=== PATIENT | female | born 1965 | race Caucasian/White ===

== ENCOUNTER 2019-01-17 16:29 | Emergency (ER) | payer MEDICAID ==
[~2019-01-17] VITALS: Ht 165.1 cm; Wt 66.0 kg
[~2019-01-17 16:29] MED LIST: LIDOcaine 1% w/EPI 1:100,000 30ml vial (MDV) ONE
[2019-01-17 16:34] VITALS: BP 145/88
--- NOTE | 2019-01-17 17:14 | NUR ---
PT DENIES LOC WITH INJURY, STATES NO NECK PAIN
[2019-01-17] MEDS ORDERED: TETanus/Pertussis (Acell)/Diphther VAC/PF (Tdap-Adult) 0.5ml syringe IM ONE (18:25)
== END 2019-01-17 19:43 | disposition home or self-care (01) ==
LOC: ER 16:30
DX: S01.81XA Laceration without foreign body of other part of head, initial encounter (principal); S69.92XA Unspecified injury of left wrist, hand and finger(s), initial encounter; Z88.0 Allergy status to penicillin; W10.8XXA Fall (on) (from) other stairs and steps, initial encounter; W23.0XXA Caught, crushed, jammed, or pinched between moving objects, initial encounter; Y93.89 Activity, other specified; Y92.89 Other specified places as the place of occurrence of the external cause; Y99.8 Other external cause status
CPT/HCPCS: 12013; 73140; 90471; 90715; 99284; J3490

== ENCOUNTER 2020-01-25 00:22 | Inpatient (IN) | payer OTHER, MEDICAID ==
[~2020-01-25] VITALS: Ht 162.6 cm; Wt 80.0 kg
[2020-01-25] VITALS (17 sets, daily range): BP systolic 104–170; BP diastolic 58–87
--- NOTE | 2020-01-25 00:57 | NUR ---
Pt is A+Ox4 but is very poor at answering basic questions. CO accompanying pt. does not know if she is developmentally disabled.
[2020-01-25 01:05] LABS: BASOPHILS % (AUTO) 0.3 % (0-1); EOSINOPHILS % (AUTO) 0.1 % (0-6); HEMATOCRIT 49.4 % (35.0-45.0); HEMOGLOBIN 16.7 g/dl (12.0-16.0); LYMPHOCYTES # (AUTO) 1.9 X10'3 (1.1-4.8); LYMPHOCYTES % (AUTO) 12.6 % (21-51); MEAN CORPUSCULAR HGB CONC 33.7 g/dL (33.0-36.5); MEAN PLATELET VOLUME 7.3 FL (7.4-10.4); MONOCYTES # (AUTO) 0.7 X10'3 (0-0.9); MONOCYTES % (AUTO) 5.1 % (2-12); NEUTROPHILS % (AUTO) 81.9 % (42-75); PLATELET COUNT 222 X10'3 (140-440); RED BLOOD COUNT 5.37 X10'6 (4.20-5.60); RED CELL DISTRIBUTION WIDTH 12.9 % (11.5-14.5); WHITE BLOOD COUNT 14.7 X10'3 (4.5-11.0)
[2020-01-25] MEDS ORDERED: ondansetron/PF 4mg/2ml inj IV STA (01:07)
[2020-01-25] MEDS ORDERED: morphine 4 MG/ML inj SYRINge IV STA (01:07)
[2020-01-25] MEDS ORDERED: normal saline 1000ml 1,000 ML IVB ONE (01:07)
--- NOTE | 2020-01-25 01:17 | NUR ---
I REMOVED HER PANTS TO GET A STRAIGHT CATH AND HER LEGS ARE LACY SO I INFORMED THE MD. HER ABD IS DIFFUSE TENDERNESS MORE LOWER QUADS AND RLQ AND SHE STATES SHE STILL HAS HER APPENDIX. REBOUND TENDERNESS +. DR PEREZ AT BS NOW.
[2020-01-25 01:18] LABS: ALANINE AMINOTRANSFERASE 74 U/L (12-78); ALBUMIN 3.3 G/DL (3.4-5.0); ALBUMIN/GLOBULIN RATIO 0.8 (1.1-1.5); ALKALINE PHOSPHATASE 96 IU/L (46-116); ANION GAP 13 (8-16); ASPARTATE AMINO TRANSFERASE 80 U/L (10-37); BILIRUBIN,TOTAL 1.7 MG/DL (0.1-1.0); BLOOD UREA NITROGEN 17 MG/DL (7-18); BUN/CREATININE RATIO 12.3 (6.6-38.0); CALCIUM 9.4 MG/DL (8.5-10.1); CHLORIDE 100 MMOL/L (99-107); CREATININE 1.38 MG/DL (0.40-0.90); GLUCOSE 139 MG/DL (70-104); LIPASE 97 U/L (73-393); POTASSIUM 3.6 MMOL/L (3.5-5.1); SODIUM 140 MMOL/L (135-145); TOTAL CARBON DIOXIDE 27.5 MMOL/L (24-32); TOTAL PROTEIN 7.4 G/DL (6.4-8.2); eGFR 40 ML/MIN
[2020-01-25] MEDS ORDERED: ondansetron/PF 4mg/2ml inj IV ONE (01:20)
[2020-01-25] MEDS ORDERED: morphine 4 MG/ML inj SYRINge IV PRN ×2 (01:20→06:50)
[2020-01-25] MEDS ORDERED: normal saline 1000ML IV soln IVB ONE ×2 (01:20)
[2020-01-25] MEDS ORDERED: ondansetron/PF 4mg/2ml inj IV PRN ×2 (01:20→06:50)
[2020-01-25 01:29] LABS: CLARITY,URINE SLIGHTLY CLOUDY (Clear); COLOR,URINE AMBER (Yellow); GLUCOSE, URINE NEGATIVE (Neg); KETONES,URINE TRACE mg/dl (Neg); LEUKOCYTE ESTERASE ,URINE NEGATIVE (Neg); NITRITES, URINE NEGATIVE (Neg); OCCULT BLOOD,URINE SMALL (Neg); PROTEIN,URINE TRACE mg/dl (Neg); UROBILINOGEN,URINE >=8.0 E.U/dL (0.2-1.0)
[2020-01-25] MEDS ORDERED: levoFLOXACIN-Levaquin 750MG/D5 150 ML IV ONE (01:50)
[2020-01-25] MEDS: morphine 4 MG/ML inj SYRINge IV PRN ×2 (01:59→10:53)
[2020-01-25 02:02] LABS: UA COLLECTION TYPE STRAIGHT CATH
[2020-01-25 02:05] LABS: BACTERIA,URINE NONE SEEN /HPF (Neg); MUCUS STRANDS MANY /LPF (Neg); SQUAMOUS EPITHELIAL CELL,UR MANY /LPF (FEW); WBC,URINE 0-4 /HPF (0-4)
[2020-01-25] MEDS ORDERED: NO HOME MEDS (02:13)
[2020-01-25] MEDS ORDERED: morphine 2 MG/ML inj. syringe IV PRN ×2 (03:30→06:50)
[2020-01-25 03:34] LABS: URINE HCG NEGATIVE (NEG)
--- NOTE | 2020-01-25 04:40 | NUR ---
Received report from Cat RN in the ER. Patient arrived at 0500 on gurney. Saline locked, room air a/o, vss, no signs of distress, will continue to monitor
[2020-01-25] MEDS: normal saline 1000ml 1,000 ML IV SCH ×3 (05:42→21:08)
[2020-01-25] MEDS ORDERED: famotidine 20mg tablet PO ONE (06:00)
--- NOTE | 2020-01-25 06:24 | NUR ---
Problems reprioritized. Patient report given, questions answered & plan of care reviewed with Di MUNSON.
--- NOTE | 2020-01-25 06:25 | NUR ---
Patient in room [facility] 350. I have received report from Vika MUNSON and had the opportunity to ask questions and assume patient care.
[2020-01-25] MEDS ORDERED: LIDOcaine 1% 30ml preserv. free vial ONE (06:46)
[2020-01-25] MEDS ORDERED: BUPIVAcaine/PF 2.5 mg/ml (0.25%) 30ml vial ONE (06:47)
[2020-01-25] MEDS ORDERED: hydrALAZINE 20mg/ml inj. IV PRN (06:50)
[2020-01-25] MEDS ORDERED: fentaNYL/PF 50MCG/1 ML 2ML syringe IV PRN ×2 (06:50)
[2020-01-25] MEDS ORDERED: ringers solution, lacted 1,000 ML IV SCH (06:50)
[2020-01-25] MEDS ORDERED: ringers solution, lacted 1,000 ML IV ONE (06:50)
[2020-01-25] MEDS ORDERED: labetalol 20mg/4ml (5mg/ml) syringe IV PRN (06:50)
[2020-01-25] MEDS: morphine 2 MG/ML inj. syringe IV PRN ×4 (07:23→22:57)
--- NOTE | 2020-01-25 07:28 | NUR ---
Patient just left her room to OR, hands off report given to the nurse. I have called the OR charge nurse at earlier time to give report as well. I told the OR nurse during report that I did preop EKG and that the EKG shows abnormal T wave and to let the anesthesiologist know about this. The initial trop is negative and patient denies chest pain upon initial assessment. Addendum: 01/25/20 at 0732 by Di Martinez RN Day shift guard duty accompanied patient to OR after the unarmed security guard duty gave hands off report
[2020-01-25 07:56] LABS: PARTIAL THROMBOPLASTIN TIME 28 SECONDS (22-32)
[2020-01-25] MEDS ORDERED: midazolam 2 mg/2 ml injection ONE (07:58)
[2020-01-25] MEDS ORDERED: fentaNYL/PF 50MCG/1 ML 2ML syringe ONE (07:58)
[2020-01-25] MEDS ORDERED: ondansetron/PF 4mg/2ml inj ONE (07:59)
[2020-01-25] MEDS ORDERED: propofol inj 20 ML IV ONE (07:59)
[2020-01-25] MEDS ORDERED: rocuronium 10mg/ml inj IV ONE (07:59)
[2020-01-25] MEDS ORDERED: LIDOcaine 2% (20mg/ml) 5ml vial ONE (07:59)
--- NOTE | 2020-01-25 08:59 | NUR ---
Report given to PHOTOGRAPHIC PLATEMAKER Gary over the phone
[2020-01-25] MEDS ORDERED: neostigmine methylsulfate 1 MG/ML 10ml vial ONE (09:19)
[2020-01-25] MEDS ORDERED: sevoflurane 250ml liquid IH ONE (09:19)
[2020-01-25] MEDS ORDERED: phenylephrine 10mg/ml inj. ONE (09:19)
[2020-01-25] MEDS ORDERED: dexamethasone sod phosphate 4mg/ml inj. ONE (09:26)
[2020-01-25] MEDS ORDERED: ceFOXitin 1000 MG inj ONE ×2 (09:33→09:34)
[2020-01-25] MEDS ORDERED: albumin (Human) 5% 250ml 250 ML IV ONE (09:50)
[2020-01-25] MEDS ORDERED: glycopyrrolate 0.2mg/ml inj ONE (10:16)
--- NOTE | 2020-01-25 10:34 | NUR ---
Received from OR via , accompanied by Anesthesiologist DR VIEYRA and report given by Anesthesiolgist. AWAKENS TO VOICE. VITALS STABLE. DRESSINGS DI. LAURA PAIN. 100CC EMPTIED FROM ABD JOCELYNN.
--- NOTE | 2020-01-25 11:14 | NUR ---
Report called to receiving nurse. Transferred via BED Belongings . Special Issues communicated to receiving nurse. AWAKE AND ORIENTED. VITALS STABLE. DRESSINGS DI. LAURA PAIN. TO SURGICAL RM 350B AT THIS TIME.
--- NOTE | 2020-01-25 11:30 | NUR ---
Patient just arrived back to her room with the guard. Per CASTING MACHINE OPERATORJEIMY Cummins patient had JOCELYNN output of 160 from the Recovery Room and that Dr. Washington was aware of it. Patient arrived, alert, oriented. Patient has 3 lap sites clean dry and intact. 1 JOCELYNN on the left side noted, drainage was sanguinous measured about 100 ml.
--- NOTE | 2020-01-25 16:13 | NUR ---
Patient has not peed yet since this am, bladder scan done, residual urine output was 418ml. Encouraged patient to ambulate to see if she can pee. Patient was assisted during ambulation with the presence of guard on duty. Patient tolerated ambulation, no dizziness noted, gait steady. Assisted patient to the bathroom, she is sitting on the toilet to try to urinate
--- NOTE | 2020-01-25 16:33 | NUR ---
Dr. Washington notified about urine retention for several hours, bladder scan of 418ml, voided only 30 ml of urine after ambulating. Received order to do straight cath x 1 and if needed again and residual is >250ml then may put a burger catheter
--- NOTE | 2020-01-25 16:57 | NUR ---
Straight catheter inserted using sterile technique with the presence of a guard on duty. Patient tolerated the procedure well. 600 ml of dark rome urine drained
--- NOTE | 2020-01-25 18:25 | NUR ---
Problems reprioritized. Patient report given, questions answered & plan of care reviewed with Reny Cornelius RN.
--- NOTE | 2020-01-25 18:33 | NUR ---
Patient in room [facility] 350. I have received report from JEIMY Saenz and had the opportunity to ask questions and assume patient care.
[2020-01-25] MEDS: levoFLOXACIN-Levaquin 500mg/D5 100 ML IV SCH (21:09)
[2020-01-25] MEDS: lactobacillus rhamnosus 10,000 MMU CELLS/CAPSULE PO SCH (21:09)
[2020-01-25] MEDS: ondansetron/PF 4mg/2ml inj IV PRN (23:19)
--- NOTE | 2020-01-25 23:25 | NUR ---
Pt voided 100, PVR bladder scan 350. FC inserted. Pt tolerated well. 600mL immediate drainage.
[2020-01-26 04:00] VITALS: BP 121/71
[2020-01-26 05:08] LABS: BASOPHILS % (AUTO) 0.1 % (0-1); EOSINOPHILS % (AUTO) 0 % (0-6); HEMATOCRIT 38.2 % (35.0-45.0); HEMOGLOBIN 12.8 g/dl (12.0-16.0); LYMPHOCYTES # (AUTO) 0.7 X10'3 (1.1-4.8); MEAN CORPUSCULAR HGB CONC 33.4 g/dL (33.0-36.5); MEAN CORPUSCULAR VOLUME 92.9 FL (78-98); MEAN PLATELET VOLUME 7.4 FL (7.4-10.4); MONOCYTES # (AUTO) 0.6 X10'3 (0-0.9); MONOCYTES % (AUTO) 8.4 % (2-12); NEUTROPHILS # (AUTO) 6.1 X10'3 (1.8-7.7); NEUTROPHILS % (AUTO) 81.5 % (42-75); PLATELET COUNT 119 X10'3 (140-440); RED BLOOD COUNT 4.11 X10'6 (4.20-5.60); RED CELL DISTRIBUTION WIDTH 13.1 % (11.5-14.5); WHITE BLOOD COUNT 7.5 X10'3 (4.5-11.0)
--- NOTE | 2020-01-26 05:12 | NUR ---
Patient reports passing gas. Ambulated 1x around surgical.
[2020-01-26 05:24] LABS: ALANINE AMINOTRANSFERASE 63 U/L (12-78); ALBUMIN 2.3 G/DL (3.4-5.0); ALBUMIN/GLOBULIN RATIO 0.7 (1.1-1.5); ALKALINE PHOSPHATASE 57 IU/L (46-116); ANION GAP 3 (8-16); ASPARTATE AMINO TRANSFERASE 70 U/L (10-37); BLOOD UREA NITROGEN 15 MG/DL (7-18); BUN/CREATININE RATIO 17.6 (6.6-38.0); CALCIUM 8.3 MG/DL (8.5-10.1); CHLORIDE 109 MMOL/L (99-107); CREATININE 0.85 MG/DL (0.40-0.90); GLUCOSE 92 MG/DL (70-104); POTASSIUM 4.5 MMOL/L (3.5-5.1); SODIUM 141 MMOL/L (135-145); TOTAL CARBON DIOXIDE 29.2 MMOL/L (24-32); TOTAL PROTEIN 5.6 G/DL (6.4-8.2); eGFR 70 ML/MIN
--- NOTE | 2020-01-26 06:21 | NUR ---
Problems reprioritized. Patient report given, questions answered & plan of care reviewed with JEIMY Hewitt.
--- NOTE | 2020-01-26 06:30 | NUR ---
Patient in room [facility] 350. I have received report from Reny Cuadra RN and had the opportunity to ask questions and assume patient care.
[2020-01-26 07:24] VITALS: BP 118/67
[2020-01-26] MEDS: normal saline 1000ml 1,000 ML IV SCH ×2 (09:24→19:29)
[2020-01-26] MEDS: levoFLOXACIN-Levaquin 500mg/D5 100 ML IV SCH (09:25)
[2020-01-26] MEDS: lactobacillus rhamnosus 10,000 MMU CELLS/CAPSULE PO SCH ×2 (09:25→20:59)
[2020-01-26] MEDS: morphine 2 MG/ML inj. syringe IV PRN ×3 (09:27→22:43)
[2020-01-26 11:00] VITALS: BP 129/80
[2020-01-26] MEDS: ondansetron/PF 4mg/2ml inj IV PRN (18:51)
--- NOTE | 2020-01-26 18:52 | NUR ---
Problems reprioritized. Patient report given, questions answered & plan of care reviewed with Javi MUNSON.
[2020-01-26] MEDS ORDERED: CADD PCA waste documentation MC SCH (19:55)
[2020-01-26 20:00] VITALS: BP 144/84
[2020-01-26] MEDS ORDERED: HYDROmorphone/NS 1 mg/ml CADD 50 ML IV SCH (20:30)
[2020-01-26 23:38] VITALS: BP 158/81
[2020-01-27 05:11] LABS: BASOPHILS % (AUTO) 0.4 % (0-1); EOSINOPHILS % (AUTO) 0.8 % (0-6); HEMATOCRIT 39.3 % (35.0-45.0); HEMOGLOBIN 13.1 g/dl (12.0-16.0); LYMPHOCYTES # (AUTO) 0.8 X10'3 (1.1-4.8); LYMPHOCYTES % (AUTO) 15.8 % (21-51); MEAN CORPUSCULAR HEMOGLOBIN 31.2 PG (27.0-31.0); MEAN CORPUSCULAR HGB CONC 33.3 g/dL (33.0-36.5); MEAN CORPUSCULAR VOLUME 93.9 FL (78-98); MEAN PLATELET VOLUME 7.2 FL (7.4-10.4); MONOCYTES # (AUTO) 0.5 X10'3 (0-0.9); MONOCYTES % (AUTO) 9.7 % (2-12); NEUTROPHILS # (AUTO) 3.9 X10'3 (1.8-7.7); NEUTROPHILS % (AUTO) 73.3 % (42-75); PLATELET COUNT 133 X10'3 (140-440); RED BLOOD COUNT 4.18 X10'6 (4.20-5.60); RED CELL DISTRIBUTION WIDTH 13.1 % (11.5-14.5); WHITE BLOOD COUNT 5.3 X10'3 (4.5-11.0)
[2020-01-27 05:29] LABS: ALANINE AMINOTRANSFERASE 49 U/L (12-78); ALBUMIN 2.3 G/DL (3.4-5.0); ALBUMIN/GLOBULIN RATIO 0.7 (1.1-1.5); ALKALINE PHOSPHATASE 59 IU/L (46-116); ANION GAP 3 (8-16); ASPARTATE AMINO TRANSFERASE 33 U/L (10-37); BILIRUBIN,TOTAL 0.7 MG/DL (0.1-1.0); BLOOD UREA NITROGEN 14 MG/DL (7-18); BUN/CREATININE RATIO 17.3 (6.6-38.0); CALCIUM 8.6 MG/DL (8.5-10.1); CHLORIDE 109 MMOL/L (99-107); CREATININE 0.81 MG/DL (0.40-0.90); GLUCOSE 89 MG/DL (70-104); POTASSIUM 4.4 MMOL/L (3.5-5.1); SODIUM 142 MMOL/L (135-145); TOTAL PROTEIN 5.6 G/DL (6.4-8.2); eGFR 74 ML/MIN
[2020-01-27] MEDS: normal saline 1000ml 1,000 ML IV SCH (05:29)
[2020-01-27] MEDS: ondansetron/PF 4mg/2ml inj IV PRN (05:50)
[2020-01-27] MEDS: morphine 2 MG/ML inj. syringe IV PRN (05:50)
--- NOTE | 2020-01-27 06:42 | NUR ---
Patient in room [facility] 350. I have received report from Javi MUNSON and had the opportunity to ask questions and assume patient care.
[2020-01-27 07:00] VITALS: BP 137/86
[2020-01-27] MEDS: lactobacillus rhamnosus 10,000 MMU CELLS/CAPSULE PO SCH ×2 (07:27→19:38)
[2020-01-27] MEDS: levoFLOXACIN-Levaquin 500mg/D5 100 ML IV SCH (07:27)
[2020-01-27 08:10] VITALS: BP 137/86
[2020-01-27] MEDS: HYDROcodone/acetaminophen 5mg/325mg tablet PO PRN ×3 (09:42→21:31)
[2020-01-27 11:21] VITALS: BP 131/84
[2020-01-27] MEDS ORDERED: HYDROcodone/acetaminophen 5mg/325mg tablet PO PRN (11:40)
[2020-01-27 18:00] VITALS: BP 148/73
--- NOTE | 2020-01-27 18:21 | NUR ---
Problems reprioritized. Patient report given, questions answered & plan of care reviewed with Javi MUNSON.
[2020-01-28] VITALS: BP 142/97
[2020-01-28] MEDS: HYDROcodone/acetaminophen 5mg/325mg tablet PO PRN (03:43)
[2020-01-28 05:29] LABS: BASOPHILS % (AUTO) 0.6 % (0-1); EOSINOPHILS # (AUTO) 0.1 X10'3 (0-0.9); EOSINOPHILS % (AUTO) 2.5 % (0-6); HEMATOCRIT 36.9 % (35.0-45.0); HEMOGLOBIN 12.3 g/dl (12.0-16.0); LYMPHOCYTES # (AUTO) 0.9 X10'3 (1.1-4.8); LYMPHOCYTES % (AUTO) 25.2 % (21-51); MEAN CORPUSCULAR HEMOGLOBIN 30.7 PG (27.0-31.0); MEAN CORPUSCULAR HGB CONC 33.4 g/dL (33.0-36.5); MEAN CORPUSCULAR VOLUME 91.9 FL (78-98); MEAN PLATELET VOLUME 7.1 FL (7.4-10.4); MONOCYTES # (AUTO) 0.4 X10'3 (0-0.9); MONOCYTES % (AUTO) 9.6 % (2-12); NEUTROPHILS # (AUTO) 2.3 X10'3 (1.8-7.7); NEUTROPHILS % (AUTO) 62.1 % (42-75); PLATELET COUNT 135 X10'3 (140-440); RED BLOOD COUNT 4.01 X10'6 (4.20-5.60); RED CELL DISTRIBUTION WIDTH 13.1 % (11.5-14.5); WHITE BLOOD COUNT 3.7 X10'3 (4.5-11.0)
[2020-01-28 05:50] LABS: ALANINE AMINOTRANSFERASE 40 U/L (12-78); ALBUMIN 2.1 G/DL (3.4-5.0); ALBUMIN/GLOBULIN RATIO 0.7 (1.1-1.5); ALKALINE PHOSPHATASE 56 IU/L (46-116); ANION GAP 5 (8-16); ASPARTATE AMINO TRANSFERASE 30 U/L (10-37); BILIRUBIN,TOTAL 0.6 MG/DL (0.1-1.0); BLOOD UREA NITROGEN 8 MG/DL (7-18); CALCIUM 8.2 MG/DL (8.5-10.1); CHLORIDE 109 MMOL/L (99-107); GLUCOSE 98 MG/DL (70-104); POTASSIUM 3.8 MMOL/L (3.5-5.1); SODIUM 143 MMOL/L (135-145); TOTAL CARBON DIOXIDE 29.3 MMOL/L (24-32); TOTAL PROTEIN 5.2 G/DL (6.4-8.2); eGFR 75 ML/MIN
--- NOTE | 2020-01-28 06:00 | NUR ---
Patient in room [facility] 350. I have received report from JEIMY Caldwell and had the opportunity to ask questions and assume patient care.
[2020-01-28] MEDS: HYDROcodone/acetaminophen 10/325mg tab PO PRN ×3 (08:39→19:45)
[2020-01-28] MEDS: levoFLOXACIN-Levaquin 500mg/D5 100 ML IV SCH (08:39)
[2020-01-28] MEDS: lactobacillus rhamnosus 10,000 MMU CELLS/CAPSULE PO SCH ×2 (08:39→19:46)
[2020-01-28 08:49] VITALS: BP 118/76
[2020-01-28] MEDS ORDERED: pantoprazole 40 MG vial IV ONE (09:05)
[2020-01-28] MEDS ORDERED: nitroGLYCERIN 0.4mg SUBLingual tab SL PRN (09:05)
--- NOTE | 2020-01-28 09:30 | NUR ---
Patient was reporting sharp chest pain, rapid conducted, stat ecg conducted. Read by MD Hobbs, looked normal. Patient was ordered nitroglycerin and pain subsided after one dose. MD ordered a series troponin and an echocardiogram.
--- NOTE | 2020-01-28 11:00 | NUR ---
Patient had positive troponins, MD was notified, MD is consulting with a emg technician.
[2020-01-28 11:08] VITALS: BP 129/85
--- NOTE | 2020-01-28 18:00 | NUR ---
Problems reprioritized. Patient report given, questions answered & plan of care reviewed with Mone RN.
[2020-01-28 20:00] VITALS: BP 162/103
[2020-01-28 21:00] VITALS: BP 150/86
[2020-01-29 00:15] VITALS: BP 154/90
[2020-01-29] MEDS: HYDROcodone/acetaminophen 10/325mg tab PO PRN ×2 (01:06→06:59)
[2020-01-29 05:35] LABS: BASOPHILS % (AUTO) 0.5 % (0-1); EOSINOPHILS # (AUTO) 0.1 X10'3 (0-0.9); EOSINOPHILS % (AUTO) 2.4 % (0-6); HEMATOCRIT 36.8 % (35.0-45.0); HEMOGLOBIN 12.4 g/dl (12.0-16.0); LYMPHOCYTES # (AUTO) 1.1 X10'3 (1.1-4.8); LYMPHOCYTES % (AUTO) 26.2 % (21-51); MEAN CORPUSCULAR HEMOGLOBIN 30.6 PG (27.0-31.0); MEAN CORPUSCULAR HGB CONC 33.7 g/dL (33.0-36.5); MEAN CORPUSCULAR VOLUME 90.6 FL (78-98); MEAN PLATELET VOLUME 6.9 FL (7.4-10.4); MONOCYTES # (AUTO) 0.5 X10'3 (0-0.9); MONOCYTES % (AUTO) 11.6 % (2-12); NEUTROPHILS # (AUTO) 2.4 X10'3 (1.8-7.7); NEUTROPHILS % (AUTO) 59.3 % (42-75); PLATELET COUNT 146 X10'3 (140-440); RED BLOOD COUNT 4.06 X10'6 (4.20-5.60); RED CELL DISTRIBUTION WIDTH 12.9 % (11.5-14.5)
[2020-01-29 06:04] LABS: ALANINE AMINOTRANSFERASE 34 U/L (12-78); ALBUMIN 2.1 G/DL (3.4-5.0); ALBUMIN/GLOBULIN RATIO 0.7 (1.1-1.5); ALKALINE PHOSPHATASE 58 IU/L (46-116); ANION GAP 3 (8-16); ASPARTATE AMINO TRANSFERASE 30 U/L (10-37); BILIRUBIN,TOTAL 0.5 MG/DL (0.1-1.0); BLOOD UREA NITROGEN 6 MG/DL (7-18); BUN/CREATININE RATIO 7.6 (6.6-38.0); CALCIUM 8.4 MG/DL (8.5-10.1); CHLORIDE 106 MMOL/L (99-107); CREATININE 0.79 MG/DL (0.40-0.90); GLUCOSE 97 MG/DL (70-104); POTASSIUM 3.8 MMOL/L (3.5-5.1); SODIUM 143 MMOL/L (135-145); TOTAL CARBON DIOXIDE 33.8 MMOL/L (24-32); TOTAL PROTEIN 5.3 G/DL (6.4-8.2); eGFR 76 ML/MIN
--- NOTE | 2020-01-29 06:30 | NUR ---
Patient in room [facility] 350. I have received report from JEIMY Shore and had the opportunity to ask questions and assume patient care.
[2020-01-29 07:00] VITALS: BP 168/104
[2020-01-29] MEDS: lactobacillus rhamnosus 10,000 MMU CELLS/CAPSULE PO SCH (08:06)
[2020-01-29] MEDS: levoFLOXACIN-Levaquin 500mg/D5 100 ML IV SCH (08:06)
[2020-01-29] MEDS ORDERED: lisinopril 10 MG tablet PO STA (08:39)
--- NOTE | 2020-01-29 10:47 | NUR ---
Initial: Pt admit with appendicitis with a possible cecal mass and leukocytosis. Pt now s/p lap appendectomy and was noted to have severe appendicitis with phlegmon and peritonitis per MD note. Patient's diet has been advanced to regular from liquids, averaging 75-100% PO intake meeting nutrient needs. Mechanical soft diet added to diet order today. [facility] 01/22. D/w dietary to send prune juice with lunch to assist with bowel regularity. Will continue to follow and monitor need for further nutrition intervention. Recommendations: 1) Continue regular mechanical soft diet 2) Monitor need for additional protein 3) Routine bowel care 4) Scaled wt per rx Addendum: 01/29/20 at [address] Amended: Links added.
[2020-01-29 11:00] VITALS: BP 155/82
[2020-01-29] MEDS ORDERED: traMADol 50MG tablet PO PRN (11:20)
[2020-01-29] MEDS ORDERED: morphine 2 MG/ML inj. syringe IV PRN ×2 (12:30)
[2020-01-29] MEDS ORDERED: LEVO500T89 PO (13:46)
[2020-01-29] MEDS ORDERED: OMEP20CA15 PO (13:46)
[2020-01-29] MEDS ORDERED: ACET-1008 PO (13:46)
[2020-01-29] MEDS ORDERED: IBUP-1985 PO (15:02)
[2020-01-30] MEDS ORDERED: levoFLOXACIN 500mg tablet PO SCH (08:00)
== END 2020-01-29 16:40 | DRG 342 ==
LOC: EEVIPCON 00:23 → ER 00:23 → ED HOLD 03:29 → SUR 3N 04:52
PROVIDERS: ADMIT Internal Medicine; ATTEND Internal Medicine
PROC: 0DTJ4ZZ Resection of Appendix, Percutaneous Endoscopic Approach (ICD-10-PCS; principal; 2020-01-25 09:19)
DX: K35.20 Acute appendicitis with generalized peritonitis, without abscess (principal); I24.8 Other forms of acute ischemic heart disease; F17.200 Nicotine dependence, unspecified, uncomplicated; I44.7 Left bundle-branch block, unspecified; K63.9 Disease of intestine, unspecified; Z88.0 Allergy status to penicillin
CPT/HCPCS: 93306; 96361; 96365; 96375; 99285; Z7506; Z7508; 36415; 71045; 74176; 80053; 81001; 81025; 82948; 83690; 84145; 84484; 85025; 85610; 85730; 87081; 93005; A4215; A4618; A6402; A7000; C9113; G0378; J0694; J1100; J1170; J1956; J2001; J2250; J2270; J2370; J2405; J2704; J2710; J3010; J3490; J7030; J7120; P9045

== ENCOUNTER 2020-02-01 04:31 | Inpatient (IN) | payer OTHER, MEDICAID ==
[~2020-02-01] VITALS: Ht 170.2 cm; Wt 63.6 kg
[~2020-02-01 04:31] MED LIST changes: +ACET-1008 PO; +IBUP-1985 PO; +LEVO500T89 PO; -LIDOcaine 1% w/EPI 1:100,000 30ml vial (MDV) ONE; +OMEP20CA15 PO
[2020-02-01] MEDS ORDERED: ondansetron/PF 4mg/2ml inj IV ONE (04:40)
[2020-02-01] MEDS ORDERED: normal saline 1000ML IV soln IVB ONE (04:40)
[2020-02-01] MEDS: morphine 4 MG/ML inj SYRINge IV PRN ×2 (04:47→05:50)
[2020-02-01 04:50] LABS: BASOPHILS % (AUTO) 0.7 % (0-1); EOSINOPHILS # (AUTO) 0.2 X10'3 (0-0.9); EOSINOPHILS % (AUTO) 3.2 % (0-6); HEMATOCRIT 41.1 % (35.0-45.0); LYMPHOCYTES # (AUTO) 1.4 X10'3 (1.1-4.8); LYMPHOCYTES % (AUTO) 25.4 % (21-51); MEAN CORPUSCULAR HEMOGLOBIN 30.8 PG (27.0-31.0); MEAN CORPUSCULAR VOLUME 90.5 FL (78-98); MEAN PLATELET VOLUME 7.2 FL (7.4-10.4); MONOCYTES # (AUTO) 0.5 X10'3 (0-0.9); MONOCYTES % (AUTO) 8.7 % (2-12); NEUTROPHILS # (AUTO) 3.5 X10'3 (1.8-7.7); PLATELET COUNT 195 X10'3 (140-440); RED BLOOD COUNT 4.54 X10'6 (4.20-5.60); RED CELL DISTRIBUTION WIDTH 13.2 % (11.5-14.5); WHITE BLOOD COUNT 5.6 X10'3 (4.5-11.0)
[2020-02-01] MEDS ORDERED: iohexol 300mg/ml 100ml inj. ONE (05:10)
[2020-02-01 05:32] LABS: CLARITY,URINE CLEAR (Clear); COLOR,URINE YELLOW (Yellow); GLUCOSE, URINE NEGATIVE (Neg); KETONES,URINE NEGATIVE (Neg); LEUKOCYTE ESTERASE ,URINE NEGATIVE (Neg); NITRITES, URINE NEGATIVE (Neg); OCCULT BLOOD,URINE TRACE-INTACT (Neg); PH,URINE 7.5 (4.8-8.0); PROTEIN,URINE NEGATIVE (Neg); URINE HCG NEGATIVE (NEG); UROBILINOGEN,URINE 0.2 E.U/dL (0.2-1.0)
[2020-02-01 05:35] LABS: ALANINE AMINOTRANSFERASE 31 U/L (12-78); ALBUMIN 2.8 G/DL (3.4-5.0); ALBUMIN/GLOBULIN RATIO 0.7 (1.1-1.5); ALKALINE PHOSPHATASE 75 IU/L (46-116); ANION GAP 9 (8-16); ASPARTATE AMINO TRANSFERASE 32 U/L (10-37); BILIRUBIN,TOTAL 0.4 MG/DL (0.1-1.0); BLOOD UREA NITROGEN 13 MG/DL (7-18); BUN/CREATININE RATIO 16.9 (6.6-38.0); CALCIUM 9.2 MG/DL (8.5-10.1); CHLORIDE 107 MMOL/L (99-107); CREATININE 0.77 MG/DL (0.40-0.90); GLUCOSE 103 MG/DL (70-104); LIPASE 250 U/L (73-393); POTASSIUM 3.9 MMOL/L (3.5-5.1); SODIUM 145 MMOL/L (135-145); TOTAL CARBON DIOXIDE 29.1 MMOL/L (24-32); TOTAL PROTEIN 6.6 G/DL (6.4-8.2); eGFR 78 ML/MIN
[2020-02-01 05:36] LABS: UA COLLECTION TYPE CLN CATCH MIDSTREAM
[2020-02-01 05:37] LABS: BACTERIA,URINE FEW /HPF (Neg); RBC,URINE 0-2 /HPF (0-2); SQUAMOUS EPITHELIAL CELL,UR FEW /LPF (FEW); WBC,URINE 0-4 /HPF (0-4)
[2020-02-01] MEDS ORDERED: IBUP-1985 PO (05:46)
[2020-02-01] MEDS ORDERED: OMEP-50 PO (05:47)
[2020-02-01] MEDS ORDERED: LEVO500T2 PO (05:47)
[2020-02-01] MEDS ORDERED: mag hydrox/Alum hydrox/simeth 30ml oral suspension PO PRN (06:05)
[2020-02-01] MEDS ORDERED: potassium Cl 20 mEq SR tablet PO PRN ×2 (06:05)
[2020-02-01] MEDS ORDERED: potassium CL 10mEq/100ml bag 100 ML IV PRN ×2 (06:05)
[2020-02-01] MEDS ORDERED: ondansetron/PF 4mg/2ml inj IV PRN (06:05)
[2020-02-01] MEDS ORDERED: acetaminophen 325mg tablet PO PRN (06:05)
[2020-02-01] MEDS ORDERED: magnesium hydroxide 30ml (MOM) UD suspension PO PRN (06:05)
[2020-02-01] MEDS ORDERED: morphine 2 MG/ML inj. syringe IV PRN ×2 (06:05)
[2020-02-01] MEDS: normal saline 1000ml 1,000 ML IV SCH ×2 (06:10→17:25)
[2020-02-01] MEDS: cefoxitin sod inj 2,000 MG in dextrose 5%-water 50ml 50 ML IV SCH ×3 (07:21→23:50)
[2020-02-01] MEDS: pantoprazole 40mg Tablet.DR PO SCH (07:23)
[2020-02-01] MEDS: heparin, porcine 5000 units/ml vial SQ SCH ×2 (07:23→21:28)
--- NOTE | 2020-02-01 07:30 | NUR ---
SO ofc change from #418 to #463. Pt resting quietly in position of moderate comfort.
[2020-02-01] MEDS ORDERED: ceFOXitin 1 GM/D5W 50mL IVPB 50 ML IV SCH (08:00)
[2020-02-01] MEDS: K and/or MAG REPLACEMENT MC SCH ×2 (08:00→20:00)
[2020-02-01 14:15] VITALS: BP 106/75
--- NOTE | 2020-02-01 14:34 | NUR ---
PAGER ID: [phone] MESSAGE: Lori Lopeznette states current pain medication (4mg MS q 20min) not effective for abd. pain. We can not give this med. at this frequency on surgical floor. May we have an order for a CADD pump? Alethea [phone]
[2020-02-01] MEDS: HYDROmorphone/NS 1 mg/ml CADD 50 ML IV SCH ×6 (15:00→23:00)
[2020-02-01 19:37] VITALS: BP 127/72
[2020-02-02 00:06] VITALS: BP 151/97
[2020-02-02] MEDS: HYDROmorphone/NS 1 mg/ml CADD 50 ML IV SCH ×5 (01:00→08:45)
[2020-02-02] MEDS: normal saline 1000ml 1,000 ML IV SCH (02:02)
[2020-02-02 05:19] LABS: BASOPHILS % (AUTO) 0.6 % (0-1); EOSINOPHILS # (AUTO) 0.2 X10'3 (0-0.9); EOSINOPHILS % (AUTO) 3.3 % (0-6); HEMATOCRIT 38.4 % (35.0-45.0); HEMOGLOBIN 12.6 g/dl (12.0-16.0); LYMPHOCYTES % (AUTO) 22.5 % (21-51); MEAN CORPUSCULAR HEMOGLOBIN 30.2 PG (27.0-31.0); MEAN CORPUSCULAR HGB CONC 32.9 g/dL (33.0-36.5); MEAN CORPUSCULAR VOLUME 91.9 FL (78-98); MEAN PLATELET VOLUME 7.1 FL (7.4-10.4); MONOCYTES # (AUTO) 0.5 X10'3 (0-0.9); MONOCYTES % (AUTO) 10.6 % (2-12); NEUTROPHILS # (AUTO) 2.8 X10'3 (1.8-7.7); PLATELET COUNT 174 X10'3 (140-440); RED BLOOD COUNT 4.18 X10'6 (4.20-5.60); RED CELL DISTRIBUTION WIDTH 13.3 % (11.5-14.5); WHITE BLOOD COUNT 4.5 X10'3 (4.5-11.0)
[2020-02-02 05:42] LABS: ALANINE AMINOTRANSFERASE 30 U/L (12-78); ALBUMIN 2.5 G/DL (3.4-5.0); ALBUMIN/GLOBULIN RATIO 0.8 (1.1-1.5); ALKALINE PHOSPHATASE 62 IU/L (46-116); ANION GAP 3 (8-16); ASPARTATE AMINO TRANSFERASE 36 U/L (10-37); BILIRUBIN,TOTAL 0.5 MG/DL (0.1-1.0); BLOOD UREA NITROGEN 10 MG/DL (7-18); BUN/CREATININE RATIO 11.4 (6.6-38.0); CALCIUM 8.5 MG/DL (8.5-10.1); CHLORIDE 108 MMOL/L (99-107); CREATININE 0.88 MG/DL (0.40-0.90); GLUCOSE 81 MG/DL (70-104); POTASSIUM 4.2 MMOL/L (3.5-5.1); SODIUM 144 MMOL/L (135-145); TOTAL CARBON DIOXIDE 32.8 MMOL/L (24-32); TOTAL PROTEIN 5.8 G/DL (6.4-8.2); eGFR 67 ML/MIN
--- NOTE | 2020-02-02 06:30 | NUR ---
Patient in room [facility] 344. I have received report from Javi MUNSON and had the opportunity to ask questions and assume patient care.
[2020-02-02 07:19] VITALS: BP 156/78
[2020-02-02] MEDS: pantoprazole 40mg Tablet.DR PO SCH (07:30)
[2020-02-02] MEDS ORDERED: lactobacillus rhamnosus 10,000 MMU CELLS/CAPSULE PO SCH (08:00)
[2020-02-02] MEDS: heparin, porcine 5000 units/ml vial SQ SCH (08:00)
--- NOTE | 2020-02-02 08:15 | NUR ---
Called pharmacy concerning 0800 antibiotic
[2020-02-02] MEDS: K and/or MAG REPLACEMENT MC SCH (08:20)
[2020-02-02] MEDS: cefoxitin sod inj 2,000 MG in dextrose 5%-water 50ml 50 ML IV SCH (08:43)
--- NOTE | 2020-02-02 08:49 | NUR ---
Dr Andre called and asked for me to place order for Angio/IR to evaluate patient for possible drain placement for possible abcess. Spoke to Jaspreet in IR
[2020-02-02] MEDS ORDERED: acetaminophen 325mg tablet PO PRN (09:10)
[2020-02-02] MEDS ORDERED: CADD PCA waste documentation MC SCH (09:40)
[2020-02-02] MEDS ORDERED: LEVO750T21 PO (09:42)
[2020-02-02] MEDS ORDERED: METR-159 PO (09:42)
== END 2020-02-02 10:44 | DRG 605 ==
LOC: EEVIPCON 04:31 → ER 04:31 → ED HOLD 06:02 → SUR 3N 14:38
PROVIDERS: ADMIT Internal Medicine; ATTEND Family Medicine
PROC: BW211ZZ Computerized Tomography (CT Scan) of Abdomen and Pelvis using Low Osmolar Contrast (ICD-10-PCS; principal; 2020-02-01)
DX: S30.1XXA Contusion of abdominal wall, initial encounter (principal); K21.9 Gastro-esophageal reflux disease without esophagitis; K74.60 Unspecified cirrhosis of liver; X58.XXXA Exposure to other specified factors, initial encounter; K52.9 Noninfective gastroenteritis and colitis, unspecified; Z87.891 Personal history of nicotine dependence; Z88.0 Allergy status to penicillin; Z79.899 Other long term (current) drug therapy; Y93.89 Activity, other specified; Y92.89 Other specified places as the place of occurrence of the external cause; Y99.8 Other external cause status
CPT/HCPCS: 36415; 74177; 80053; 81001; 81025; 83605; 83690; 84145; 84484; 85025; 87040; 87081; 93005; 96361; 96374; 96375; 99285; G0378; J0694; J1170; J1644; J2270; J2405; J7030; J7060; Q9967

== ENCOUNTER 2020-02-03 17:52 | Emergency (ER) | payer OTHER, MEDICAID ==
[~2020-02-03] VITALS: Ht 165.1 cm; Wt 63.6 kg
[~2020-02-03 17:52] MED LIST changes: -ACET-1008 PO; -LEVO500T89 PO; +LEVO750T21 PO; +METR-159 PO; +OMEP-50 PO; -OMEP20CA15 PO
[2020-02-03] MEDS ORDERED: ondansetron/PF 4mg/2ml inj IV ONE (18:15)
[2020-02-03] MEDS ORDERED: morphine 4 MG/ML inj SYRINge IV PRN (18:15)
[2020-02-03] MEDS ORDERED: normal saline 1000ML IV soln IVB ONE (18:15)
[2020-02-03 18:38] LABS: BASOPHILS % (AUTO) 0.4 % (0-1); EOSINOPHILS # (AUTO) 0.1 X10'3 (0-0.9); EOSINOPHILS % (AUTO) 0.7 % (0-6); HEMATOCRIT 42.3 % (35.0-45.0); HEMOGLOBIN 14.1 g/dl (12.0-16.0); LYMPHOCYTES # (AUTO) 1.1 X10'3 (1.1-4.8); LYMPHOCYTES % (AUTO) 14.9 % (21-51); MEAN CORPUSCULAR HEMOGLOBIN 30.6 PG (27.0-31.0); MEAN CORPUSCULAR HGB CONC 33.3 g/dL (33.0-36.5); MEAN CORPUSCULAR VOLUME 91.9 FL (78-98); MEAN PLATELET VOLUME 7.4 FL (7.4-10.4); MONOCYTES # (AUTO) 0.4 X10'3 (0-0.9); MONOCYTES % (AUTO) 5.5 % (2-12); NEUTROPHILS # (AUTO) 5.8 X10'3 (1.8-7.7); NEUTROPHILS % (AUTO) 78.5 % (42-75); PLATELET COUNT 191 X10'3 (140-440); RED BLOOD COUNT 4.61 X10'6 (4.20-5.60); RED CELL DISTRIBUTION WIDTH 12.9 % (11.5-14.5); WHITE BLOOD COUNT 7.4 X10'3 (4.5-11.0)
[2020-02-03 19:24] LABS: CLARITY,URINE CLEAR (Clear); COLOR,URINE ORANGE (Yellow); GLUCOSE, URINE NEGATIVE (Neg); KETONES,URINE NEGATIVE (Neg); LEUKOCYTE ESTERASE ,URINE TRACE (Neg); NITRITES, URINE NEGATIVE (Neg); OCCULT BLOOD,URINE TRACE-INTACT (Neg); PROTEIN,URINE NEGATIVE (Neg); UROBILINOGEN,URINE 0.2 E.U/dL (0.2-1.0)
[2020-02-03] MEDS ORDERED: HYDROcodone/acetaminophen 5mg/325mg tablet PO ONE (19:25)
[2020-02-03 19:26] LABS: UA COLLECTION TYPE CLN CATCH MIDSTREAM
[2020-02-03 19:29] LABS: BACTERIA,URINE NONE SEEN /HPF (Neg); RBC,URINE 0-2 /HPF (0-2); SQUAMOUS EPITHELIAL CELL,UR FEW /LPF (FEW); WBC,URINE 0-4 /HPF (0-4)
[2020-02-03 19:31] LABS: ALANINE AMINOTRANSFERASE 38 U/L (12-78); ALBUMIN/GLOBULIN RATIO 0.8 (1.1-1.5); ALKALINE PHOSPHATASE 90 IU/L (46-116); ANION GAP 9 (8-16); ASPARTATE AMINO TRANSFERASE 50 U/L (10-37); BILIRUBIN,TOTAL 0.4 MG/DL (0.1-1.0); BLOOD UREA NITROGEN 15 MG/DL (7-18); BUN/CREATININE RATIO 17.6 (6.6-38.0); CALCIUM 9.2 MG/DL (8.5-10.1); CHLORIDE 106 MMOL/L (99-107); CREATININE 0.85 MG/DL (0.40-0.90); GLUCOSE 126 MG/DL (70-104); LIPASE 246 U/L (73-393); SODIUM 141 MMOL/L (135-145); TOTAL CARBON DIOXIDE 25.6 MMOL/L (24-32); eGFR 70 ML/MIN
[2020-02-03 19:32] LABS: POTASSIUM 4.8 MMOL/L (3.5-5.1)
[2020-02-03 20:09] VITALS: BP 131/73
== END 2020-02-03 20:11 ==
LOC: ER 17:53
DX: G89.18 Other acute postprocedural pain (principal); R10.12 Left upper quadrant pain; R10.13 Epigastric pain; Z88.0 Allergy status to penicillin; Z79.2 Long term (current) use of antibiotics; Z79.899 Other long term (current) drug therapy
CPT/HCPCS: 36415; 80053; 81001; 83690; 85025; 87088; 96374; 96375; 99284; J2270; J2405; J7030

== ENCOUNTER 2020-09-03 14:53 | Inpatient (IN) | payer MEDICAID, OTHER ==
[~2020-09-03] VITALS: Ht 167.6 cm; Wt 63.6 kg
[~2020-09-03 14:53] MED LIST changes: -LEVO750T21 PO; -METR-159 PO
[2020-09-03 15:32] LABS: BASOPHILS % (AUTO) 1.2 % (0-1); EOSINOPHILS # (AUTO) 0.1 X10'3 (0-0.9); EOSINOPHILS % (AUTO) 2.6 % (0-6); HEMATOCRIT 39.7 % (35.0-45.0); HEMOGLOBIN 13.4 g/dl (12.0-16.0); LYMPHOCYTES # (AUTO) 1.1 X10'3 (1.1-4.8); LYMPHOCYTES % (AUTO) 27.8 % (21-51); MEAN CORPUSCULAR HEMOGLOBIN 29.5 PG (27.0-31.0); MEAN CORPUSCULAR HGB CONC 33.8 g/dL (33.0-36.5); MEAN CORPUSCULAR VOLUME 87.2 FL (78-98); MEAN PLATELET VOLUME 6.9 FL (7.4-10.4); MONOCYTES # (AUTO) 0.3 X10'3 (0-0.9); MONOCYTES % (AUTO) 7.4 % (2-12); NEUTROPHILS # (AUTO) 2.4 X10'3 (1.8-7.7); PLATELET COUNT 175 X10'3 (140-440); RED BLOOD COUNT 4.55 X10'6 (4.20-5.60); WHITE BLOOD COUNT 3.9 X10'3 (4.5-11.0)
[2020-09-03 15:46] LABS: ALANINE AMINOTRANSFERASE 103 U/L (12-78); ALBUMIN 3.1 G/DL (3.4-5.0); ALBUMIN/GLOBULIN RATIO 0.7 (1.1-1.5); ALKALINE PHOSPHATASE 107 IU/L (46-116); ANION GAP 4 (8-16); ASPARTATE AMINO TRANSFERASE 88 U/L (10-37); BILIRUBIN,TOTAL 0.5 MG/DL (0.1-1.0); BLOOD UREA NITROGEN 13 MG/DL (7-18); BUN/CREATININE RATIO 17.6 (6.6-38.0); CALCIUM 8.7 MG/DL (8.5-10.1); CHLORIDE 105 MMOL/L (99-107); CREATININE 0.74 MG/DL (0.40-0.90); GLUCOSE 105 MG/DL (70-104); LIPASE 106 U/L (73-393); SODIUM 140 MMOL/L (135-145); TOTAL CARBON DIOXIDE 31.5 MMOL/L (24-32); TOTAL PROTEIN 7.3 G/DL (6.4-8.2); eGFR 81 ML/MIN
[2020-09-03 15:51] LABS: POTASSIUM 4.4 MMOL/L (3.5-5.1)
--- NOTE | 2020-09-03 15:55 | NUR ---
PATIENT UP TO BATHROOM, UNABLE TO GIVE URINE SAMPLE
[2020-09-03] MEDS ORDERED: pantoprazole 40 MG vial IV ONE (17:10)
[2020-09-03] MEDS ORDERED: normal saline 1000ML IV soln IVB ONE (17:10)
[2020-09-03 17:31] LABS: CLARITY,URINE CLOUDY (Clear); COLOR,URINE YELLOW (Yellow); GLUCOSE, URINE NEGATIVE (Neg); KETONES,URINE NEGATIVE (Neg); LEUKOCYTE ESTERASE ,URINE NEGATIVE (Neg); NITRITES, URINE NEGATIVE (Neg); OCCULT BLOOD,URINE LARGE (Neg); PROTEIN,URINE NEGATIVE (Neg)
[2020-09-03 17:35] LABS: URINE HCG NEGATIVE (NEG)
[2020-09-03] MEDS ORDERED: pantoprazole 40MG/NS 100ML BAG 100 ML IV ONE (17:35)
[2020-09-03 17:38] LABS: UA COLLECTION TYPE CLN CATCH MIDSTREAM
[2020-09-03 17:39] LABS: BACTERIA,URINE FEW /HPF (Neg); MUCUS STRANDS FEW /LPF (Neg); RBC,URINE TNTC /HPF (0-2); SQUAMOUS EPITHELIAL CELL,UR MANY /LPF (FEW); WBC,URINE NONE SEEN /HPF (0-4)
[2020-09-03 17:44] LABS: PARTIAL THROMBOPLASTIN TIME 25 SECONDS (22-32)
[2020-09-03] MEDS ORDERED: mag hydrox/Alum hydrox/simeth 30ml oral suspension PO PRN (18:05)
[2020-09-03] MEDS ORDERED: morphine 2 MG/ML inj. syringe IV PRN (18:05)
[2020-09-03] MEDS ORDERED: acetaminophen 325mg tablet PO PRN ×2 (18:05)
[2020-09-03] MEDS ORDERED: magnesium hydroxide 30ml (MOM) UD suspension PO PRN (18:05)
[2020-09-03] MEDS ORDERED: HYDROcodone/acetaminophen 5mg/325mg tablet PO PRN (18:05)
[2020-09-03] MEDS ORDERED: ACET-76 PO (18:13)
[2020-09-03] MEDS ORDERED: ASPI-12 PO (18:13)
[2020-09-03] MEDS: normal saline 1000ml 1,000 ML IV SCH (18:20)
--- NOTE | 2020-09-03 18:35 | NUR ---
breaking primary RN, will cont. to monitor pt's status.
[2020-09-03 19:30] VITALS: BP_SYST 157; BP_SYST 162; BP_SYST 176; BP_DIAS 107; BP_DIAS 112; BP_DIAS 96
[2020-09-03] MEDS: HYDROcodone/acetaminophen 10/325mg tab PO PRN (20:00)
[2020-09-03 22:00] VITALS: BP 150/88
--- NOTE | 2020-09-03 23:00 | NUR ---
part of the pt's DART has been completed. the pt is [place] and has a difficult time understanding. pt also tired and wishes to rest. will complete the DART as the pt allows. will continue to monitor.
[2020-09-04] VITALS (11 sets, daily range): BP systolic 124–176; BP diastolic 57–117
[2020-09-04] MEDS: normal saline 1000ml 1,000 ML IV SCH ×2 (04:30→14:05)
[2020-09-04 06:20] LABS: BASOPHILS % (AUTO) 0.9 % (0-1); EOSINOPHILS # (AUTO) 0.1 X10'3 (0-0.9); EOSINOPHILS % (AUTO) 2.7 % (0-6); HEMATOCRIT 37.4 % (35.0-45.0); HEMOGLOBIN 12.5 g/dl (12.0-16.0); LYMPHOCYTES # (AUTO) 1.6 X10'3 (1.1-4.8); LYMPHOCYTES % (AUTO) 39.8 % (21-51); MEAN CORPUSCULAR HEMOGLOBIN 29.5 PG (27.0-31.0); MEAN CORPUSCULAR HGB CONC 33.4 g/dL (33.0-36.5); MEAN CORPUSCULAR VOLUME 88.3 FL (78-98); MONOCYTES # (AUTO) 0.4 X10'3 (0-0.9); MONOCYTES % (AUTO) 9.9 % (2-12); NEUTROPHILS # (AUTO) 1.9 X10'3 (1.8-7.7); NEUTROPHILS % (AUTO) 46.7 % (42-75); PLATELET COUNT 151 X10'3 (140-440); RED BLOOD COUNT 4.24 X10'6 (4.20-5.60); RED CELL DISTRIBUTION WIDTH 14.2 % (11.5-14.5); WHITE BLOOD COUNT 4.1 X10'3 (4.5-11.0)
--- NOTE | 2020-09-04 06:20 | NUR ---
Problems reprioritized. Patient report given, questions answered & plan of care reviewed with Di MUNSON.
--- NOTE | 2020-09-04 06:31 | NUR ---
Patient in room PCU 3024. I have received report from Mayra MUNSON and had the opportunity to ask questions and assume patient care.
[2020-09-04 06:34] LABS: ALANINE AMINOTRANSFERASE 88 U/L (12-78); ALBUMIN 2.7 G/DL (3.4-5.0); ALBUMIN/GLOBULIN RATIO 0.8 (1.1-1.5); ALKALINE PHOSPHATASE 90 IU/L (46-116); ANION GAP 4 (8-16); ASPARTATE AMINO TRANSFERASE 83 U/L (10-37); BILIRUBIN,TOTAL 0.6 MG/DL (0.1-1.0); BLOOD UREA NITROGEN 13 MG/DL (7-18); BUN/CREATININE RATIO 17.1 (6.6-38.0); CALCIUM 8.6 MG/DL (8.5-10.1); CHLORIDE 108 MMOL/L (99-107); CREATININE 0.76 MG/DL (0.40-0.90); GLUCOSE 96 MG/DL (70-104); POTASSIUM 4.1 MMOL/L (3.5-5.1); SODIUM 141 MMOL/L (135-145); TOTAL CARBON DIOXIDE 29.3 MMOL/L (24-32); TOTAL PROTEIN 6.2 G/DL (6.4-8.2); eGFR 79 ML/MIN
[2020-09-04 08:28] LABS: OCCULT BLOOD STOOL POSITIVE (Neg)
[2020-09-04] MEDS ORDERED: fentaNYL/PF 50MCG/1 ML 2ML syringe ONE (08:33)
[2020-09-04] MEDS ORDERED: LIDOcaine Viscous 15ml cup ONE (08:33)
[2020-09-04] MEDS ORDERED: MIDAZolam 5mg/5ml vial ONE (08:33)
[2020-09-04] MEDS ORDERED: FLU VACC QS2020-21(6MOS UP)/PF 60 MCG/0.5 ML SYRINGE IMVAC ONE (10:00)
[2020-09-04] MEDS ORDERED: pneumococcal 23-VAL P-sac vacc 25 mcg/0.5ml vial IMVAC ONE (10:00)
--- NOTE | 2020-09-04 11:20 | NUR ---
Patient still in the GI lab at this time for EGD
[2020-09-04] MEDS ORDERED: PEG 3350/Na sulf,bicarb,Cl/KCl oral sol 4 liter bottle PO ONE (11:40)
--- NOTE | 2020-09-04 12:12 | NUR ---
Patient was instructed to be NPO after midnight as she will have colonoscopy tomorrow and that she will have to take Golytely today. Patient verbalized understanding of instructions made.
--- NOTE | 2020-09-04 12:13 | NUR ---
Patient requested the flu shot and pneumococcal vaccine to hold for today and to have it tomorrow instead.
--- NOTE | 2020-09-04 18:16 | NUR ---
Problems reprioritized. Patient report given, questions answered & plan of care reviewed with Prudence RN.
--- NOTE | 2020-09-04 18:34 | NUR ---
Patient in room PCU 3024. I have received report from JV MUNSON and had the opportunity to ask questions and assume patient care.
--- NOTE | 2020-09-04 18:47 | NUR ---
Problems reprioritized. Patient report given, questions answered & plan of care reviewed with Prudence RN.
[2020-09-04] MEDS: HYDROcodone/acetaminophen 10/325mg tab PO PRN (19:17)
[2020-09-05] VITALS (11 sets, daily range): BP systolic 144–176; BP diastolic 68–107
[2020-09-05] MEDS: normal saline 1000ml 1,000 ML IV SCH ×3 (00:05→20:05)
--- NOTE | 2020-09-05 06:32 | NUR ---
Problems reprioritized. Patient report given, questions answered & plan of care reviewed with ZAIRE MUNSON.
--- NOTE | 2020-09-05 06:37 | NUR ---
Patient in room PCU 3024. I have received report from JEIMY Shankar and had the opportunity to ask questions and assume patient care.
[2020-09-05 06:40] LABS: BASOPHILS % (AUTO) 0.6 % (0-1); EOSINOPHILS # (AUTO) 0.1 X10'3 (0-0.9); EOSINOPHILS % (AUTO) 2.5 % (0-6); HEMATOCRIT 36.6 % (35.0-45.0); HEMOGLOBIN 12.5 g/dl (12.0-16.0); LYMPHOCYTES # (AUTO) 1.6 X10'3 (1.1-4.8); LYMPHOCYTES % (AUTO) 34.3 % (21-51); MEAN CORPUSCULAR HEMOGLOBIN 29.7 PG (27.0-31.0); MEAN CORPUSCULAR VOLUME 87.4 FL (78-98); MONOCYTES # (AUTO) 0.4 X10'3 (0-0.9); MONOCYTES % (AUTO) 9.6 % (2-12); NEUTROPHILS # (AUTO) 2.4 X10'3 (1.8-7.7); PLATELET COUNT 154 X10'3 (140-440); RED BLOOD COUNT 4.19 X10'6 (4.20-5.60); RED CELL DISTRIBUTION WIDTH 13.7 % (11.5-14.5); WHITE BLOOD COUNT 4.5 X10'3 (4.5-11.0)
[2020-09-05 06:46] LABS: ALANINE AMINOTRANSFERASE 90 U/L (12-78); ALBUMIN 2.9 G/DL (3.4-5.0); ALBUMIN/GLOBULIN RATIO 0.8 (1.1-1.5); ALKALINE PHOSPHATASE 89 IU/L (46-116); ANION GAP 9 (8-16); ASPARTATE AMINO TRANSFERASE 83 U/L (10-37); BILIRUBIN,TOTAL 0.6 MG/DL (0.1-1.0); BLOOD UREA NITROGEN 9 MG/DL (7-18); BUN/CREATININE RATIO 13.4 (6.6-38.0); CALCIUM 8.5 MG/DL (8.5-10.1); CHLORIDE 104 MMOL/L (99-107); CREATININE 0.67 MG/DL (0.40-0.90); GLUCOSE 95 MG/DL (70-104); POTASSIUM 3.5 MMOL/L (3.5-5.1); SODIUM 141 MMOL/L (135-145); TOTAL CARBON DIOXIDE 28.3 MMOL/L (24-32); TOTAL PROTEIN 6.5 G/DL (6.4-8.2); eGFR > 90 ML/MIN
[2020-09-05] MEDS ORDERED: fentaNYL/PF 50MCG/1 ML 2ML syringe ONE (10:42)
[2020-09-05] MEDS ORDERED: MIDAZolam 5mg/5ml vial ONE (10:42)
--- NOTE | 2020-09-05 14:17 | NUR ---
PAGER ID: [phone] MESSAGE: PAYAM BHATT [phone], [phone]
[2020-09-05] MEDS: HYDROcodone/acetaminophen 10/325mg tab PO PRN ×2 (15:15→22:48)
--- NOTE | 2020-09-05 16:33 | NUR ---
Patient in room PCU 3024. I have received report from Nenita MUNSON and had the opportunity to ask questions and assume patient care.
--- NOTE | 2020-09-05 16:37 | NUR ---
PAGER ID: [phone] MESSAGE: Jose Harris will be in 350B soon. Do you want her on a PPI? Her BP is being reported at elevated per bone plant supervisor, no BP medications as well. Seema [phone]
--- NOTE | 2020-09-05 16:38 | NUR ---
Problems reprioritized. Patient report given, questions answered & plan of care reviewed with JEIMY Stephenson. I will collect all belongings and transfer pt to room 350B.
--- NOTE | 2020-09-05 16:39 | NUR ---
Paged Dr Vargas PAGER ID: [phone] MESSAGE: Lori Olea [id number] FYI Pt's BP 176/102, HR 57. I'm transferring pt to surgical Dx182M. Thanks Nenita [phone]
[2020-09-05] MEDS ORDERED: lisinopril 5mg tablet PO SCH (16:45)
--- NOTE | 2020-09-05 16:46 | NUR ---
Transferred pt by wheelchair to the surgical floor, Rm 350B. Ambulated self to bed. JEIMY Stephenson at bedside. All pt needs met at this time.
[2020-09-05] MEDS: diatr meglu/diatrizoate 30ml oral sol.-(3 dose) bottle PO SCH (21:01)
[2020-09-06] VITALS: BP 158/98
[2020-09-06 06:00] VITALS: BP 137/80
--- NOTE | 2020-09-06 06:18 | NUR ---
I have received report from Josse MUNSON and had the opportunity to ask questions and assume patient care.
[2020-09-06 06:29] LABS: BASOPHILS % (AUTO) 0.7 % (0-1); EOSINOPHILS # (AUTO) 0.1 X10'3 (0-0.9); EOSINOPHILS % (AUTO) 2.8 % (0-6); HEMATOCRIT 35.2 % (35.0-45.0); LYMPHOCYTES # (AUTO) 1.3 X10'3 (1.1-4.8); LYMPHOCYTES % (AUTO) 31.8 % (21-51); MEAN CORPUSCULAR HEMOGLOBIN 29.8 PG (27.0-31.0); MEAN CORPUSCULAR HGB CONC 34.1 g/dL (33.0-36.5); MEAN CORPUSCULAR VOLUME 87.3 FL (78-98); MEAN PLATELET VOLUME 7.3 FL (7.4-10.4); MONOCYTES # (AUTO) 0.4 X10'3 (0-0.9); MONOCYTES % (AUTO) 9.1 % (2-12); NEUTROPHILS # (AUTO) 2.3 X10'3 (1.8-7.7); NEUTROPHILS % (AUTO) 55.6 % (42-75); PLATELET COUNT 147 X10'3 (140-440); RED BLOOD COUNT 4.03 X10'6 (4.20-5.60); WHITE BLOOD COUNT 4.1 X10'3 (4.5-11.0)
[2020-09-06] MEDS: normal saline 1000ml 1,000 ML IV SCH ×3 (06:36→22:31)
--- NOTE | 2020-09-06 06:37 | NUR ---
Problems reprioritized. Patient report given, questions answered & plan of care reviewed with CHRIS. Addendum: 09/06/20 at 0637 by Yaw Mondragon RN Amended: Links added.
[2020-09-06 06:47] LABS: ALANINE AMINOTRANSFERASE 84 U/L (12-78); ALBUMIN 2.7 G/DL (3.4-5.0); ALBUMIN/GLOBULIN RATIO 0.8 (1.1-1.5); ALKALINE PHOSPHATASE 84 IU/L (46-116); ANION GAP 5 (8-16); ASPARTATE AMINO TRANSFERASE 81 U/L (10-37); BILIRUBIN,TOTAL 0.5 MG/DL (0.1-1.0); BLOOD UREA NITROGEN 14 MG/DL (7-18); BUN/CREATININE RATIO 21.2 (6.6-38.0); CALCIUM 8.7 MG/DL (8.5-10.1); CHLORIDE 106 MMOL/L (99-107); CREATININE 0.66 MG/DL (0.40-0.90); GLUCOSE 95 MG/DL (70-104); POTASSIUM 3.9 MMOL/L (3.5-5.1); SODIUM 140 MMOL/L (135-145); TOTAL PROTEIN 6.1 G/DL (6.4-8.2); eGFR > 90 ML/MIN
[2020-09-06] MEDS: diatr meglu/diatrizoate 30ml oral sol.-(3 dose) bottle PO SCH ×2 (08:09→10:17)
[2020-09-06] MEDS: lisinopril 5mg tablet PO SCH ×2 (08:10→19:07)
[2020-09-06] MEDS: HYDROcodone/acetaminophen 10/325mg tab PO PRN ×3 (08:15→23:37)
[2020-09-06] MEDS ORDERED: iohexol 300mg/ml 100ml inj. ONE (10:12)
--- NOTE | 2020-09-06 10:19 | NUR ---
Patient SL, voided and in WC for CT.
--- NOTE | 2020-09-06 10:40 | NUR ---
Patient off the unit to CT
[2020-09-06 11:00] VITALS: BP 153/84
--- NOTE | 2020-09-06 11:15 | NUR ---
Back on the unit from CT. US to be completed within the hour.
--- NOTE | 2020-09-06 14:14 | NUR ---
PAGER ID: [phone] MESSAGE: 350B : CT and US has been completed. Can I get a diet for her? Seema [phone]
--- NOTE | 2020-09-06 14:28 | NUR ---
Patient in hallway ambulating, requesting to have something to eat. Informed patient that Dr. Vargas has been paged for request of a diet.
[2020-09-06] MEDS ORDERED: PEG 3350/Na sulf,bicarb,Cl/KCl oral sol 4 liter bottle PO ONE (14:45)
[2020-09-06 16:33] VITALS: BP_SYST 150; BP_SYST 153; BP_SYST 158; BP_DIAS 84; BP_DIAS 93; BP_DIAS 96
--- NOTE | 2020-09-06 18:22 | NUR ---
I have received report from Seema MUNSON and had the opportunity to ask questions and assume patient care.
[2020-09-06 20:00] VITALS: BP 156/78
[2020-09-07] VITALS: BP_SYST 157; BP_SYST 163; BP_SYST 164; BP_DIAS 103; BP_DIAS 88; BP_DIAS 95
[2020-09-07 00:41] VITALS: BP 155/111
--- NOTE | 2020-09-07 06:30 | NUR ---
Patient in room [facility] 350. I have received report from Brittany MUNSON and had the opportunity to ask questions and assume patient care.
[2020-09-07 06:31] LABS: BASOPHILS % (AUTO) 0.6 % (0-1); EOSINOPHILS # (AUTO) 0.1 X10'3 (0-0.9); EOSINOPHILS % (AUTO) 3.5 % (0-6); HEMATOCRIT 34.5 % (35.0-45.0); HEMOGLOBIN 11.5 g/dl (12.0-16.0); LYMPHOCYTES # (AUTO) 1.1 X10'3 (1.1-4.8); MEAN CORPUSCULAR HEMOGLOBIN 29.6 PG (27.0-31.0); MEAN CORPUSCULAR HGB CONC 33.4 g/dL (33.0-36.5); MEAN CORPUSCULAR VOLUME 88.7 FL (78-98); MEAN PLATELET VOLUME 7.1 FL (7.4-10.4); MONOCYTES # (AUTO) 0.4 X10'3 (0-0.9); MONOCYTES % (AUTO) 10.3 % (2-12); NEUTROPHILS # (AUTO) 1.9 X10'3 (1.8-7.7); NEUTROPHILS % (AUTO) 54.6 % (42-75); PLATELET COUNT 133 X10'3 (140-440); RED BLOOD COUNT 3.89 X10'6 (4.20-5.60); RED CELL DISTRIBUTION WIDTH 13.9 % (11.5-14.5); WHITE BLOOD COUNT 3.6 X10'3 (4.5-11.0)
[2020-09-07] MEDS: normal saline 1000ml 1,000 ML IV SCH ×2 (06:31→16:28)
[2020-09-07 06:33] LABS: PARTIAL THROMBOPLASTIN TIME 26 SECONDS (22-32)
--- NOTE | 2020-09-07 06:34 | NUR ---
Problems reprioritized. Patient report given, questions answered & plan of care reviewed with Alejandra MUNSON.
[2020-09-07 06:39] LABS: ALANINE AMINOTRANSFERASE 84 U/L (12-78); ALBUMIN 2.6 G/DL (3.4-5.0); ALBUMIN/GLOBULIN RATIO 0.8 (1.1-1.5); ALKALINE PHOSPHATASE 76 IU/L (46-116); ANION GAP 5 (8-16); ASPARTATE AMINO TRANSFERASE 77 U/L (10-37); BILIRUBIN,TOTAL 0.4 MG/DL (0.1-1.0); BLOOD UREA NITROGEN 7 MG/DL (7-18); BUN/CREATININE RATIO 11.7 (6.6-38.0); CALCIUM 8.1 MG/DL (8.5-10.1); CHLORIDE 107 MMOL/L (99-107); GLUCOSE 91 MG/DL (70-104); POTASSIUM 3.7 MMOL/L (3.5-5.1); SODIUM 142 MMOL/L (135-145); TOTAL CARBON DIOXIDE 29.9 MMOL/L (24-32); TOTAL PROTEIN 5.9 G/DL (6.4-8.2); eGFR > 90 ML/MIN
[2020-09-07 07:12] VITALS: BP 150/73
[2020-09-07] MEDS ORDERED: PEG 3350/Na sulf,bicarb,Cl/KCl oral sol 4 liter bottle PO ONE (08:00)
[2020-09-07] MEDS: lisinopril 5mg tablet PO SCH ×2 (08:30→19:14)
--- NOTE | 2020-09-07 08:51 | NUR ---
Radhames would not scan, med needed to be relabeled by pharmacy.
--- NOTE | 2020-09-07 09:59 | NUR ---
Dr. Saenz rounded on pt. Pt states she does not sign. Pt wants info written or to have info go through daughter. Dr Saenz spoke w/ dtr Felipa ([phone]) and discussed potential surgery and it's risks, benefits, and alternatives. Pt began crying as MD discussed w/ daughter. Pt asked appropriate questions after MD spoke w/ dtr. MD ordered Dilaudid CADD w/ standard settings.
[2020-09-07] MEDS ORDERED: CADD PCA waste documentation MC PRN (10:00)
[2020-09-07] MEDS ORDERED: naloxone 0.4 mg/ml inj IV PRN (10:00)
[2020-09-07] MEDS: HYDROmorphone/NS 1 mg/ml CADD 50 ML IV SCH ×7 (11:49→23:00)
[2020-09-07 12:00] VITALS: BP_SYST 149; BP_SYST 155; BP_SYST 163; BP_SYST 166; BP_DIAS 104; BP_DIAS 80; BP_DIAS 81; BP_DIAS 95
[2020-09-07] MEDS: ondansetron/PF 4mg/2ml inj IV PRN (14:10)
--- NOTE | 2020-09-07 18:16 | NUR ---
Problems reprioritized. Patient report given, questions answered & plan of care reviewed with Brittany MUNSON.
--- NOTE | 2020-09-07 18:24 | NUR ---
Patient in room [facility] 347. I have received report from Alejandra MUNSON and had the opportunity to ask questions and assume patient care.
[2020-09-07 19:00] VITALS: BP 152/83
[2020-09-08] VITALS (25 sets, daily range): BP systolic 120–162; BP diastolic 69–96
[2020-09-08] MEDS: HYDROmorphone/NS 1 mg/ml CADD 50 ML IV SCH ×12 (01:00→22:56)
[2020-09-08] MEDS: normal saline 1000ml 1,000 ML IV SCH ×2 (01:52→18:47)
--- NOTE | 2020-09-08 06:15 | NUR ---
Patient in room [facility] 350. I have received report from Brittany MUNSON and had the opportunity to ask questions and assume patient care.
--- NOTE | 2020-09-08 06:17 | NUR ---
Problems reprioritized. Patient report given, questions answered & plan of care reviewed with Letty MUNSON.
[2020-09-08 07:01] LABS: BASOPHILS % (AUTO) 0.7 % (0-1); EOSINOPHILS # (AUTO) 0.1 X10'3 (0-0.9); EOSINOPHILS % (AUTO) 3.2 % (0-6); HEMATOCRIT 33.5 % (35.0-45.0); HEMOGLOBIN 11.4 g/dl (12.0-16.0); LYMPHOCYTES # (AUTO) 1.1 X10'3 (1.1-4.8); LYMPHOCYTES % (AUTO) 33.2 % (21-51); MEAN CORPUSCULAR HEMOGLOBIN 29.9 PG (27.0-31.0); MEAN CORPUSCULAR VOLUME 88.2 FL (78-98); MONOCYTES # (AUTO) 0.4 X10'3 (0-0.9); MONOCYTES % (AUTO) 12.2 % (2-12); NEUTROPHILS # (AUTO) 1.7 X10'3 (1.8-7.7); NEUTROPHILS % (AUTO) 50.7 % (42-75); PLATELET COUNT 128 X10'3 (140-440); RED CELL DISTRIBUTION WIDTH 14.3 % (11.5-14.5); WHITE BLOOD COUNT 3.3 X10'3 (4.5-11.0)
[2020-09-08 07:11] LABS: PARTIAL THROMBOPLASTIN TIME 27 SECONDS (22-32)
[2020-09-08 07:22] LABS: ALANINE AMINOTRANSFERASE 84 U/L (12-78); ALBUMIN 2.7 G/DL (3.4-5.0); ALBUMIN/GLOBULIN RATIO 0.8 (1.1-1.5); ALKALINE PHOSPHATASE 76 IU/L (46-116); ANION GAP 6 (8-16); ASPARTATE AMINO TRANSFERASE 85 U/L (10-37); BILIRUBIN,TOTAL 0.5 MG/DL (0.1-1.0); BLOOD UREA NITROGEN 5 MG/DL (7-18); BUN/CREATININE RATIO 7.6 (6.6-38.0); CALCIUM 8.3 MG/DL (8.5-10.1); CHLORIDE 107 MMOL/L (99-107); CREATININE 0.66 MG/DL (0.40-0.90); GLUCOSE 93 MG/DL (70-104); POTASSIUM 3.7 MMOL/L (3.5-5.1); SODIUM 142 MMOL/L (135-145); TOTAL CARBON DIOXIDE 29.2 MMOL/L (24-32); TOTAL PROTEIN 5.9 G/DL (6.4-8.2); eGFR > 90 ML/MIN
--- NOTE | 2020-09-08 07:38 | NUR ---
Per Project Facilitator, Eliel Chery RN the covid19 antigen negative result should be fine if she is going for surgery today.Charge nurse Ariana notified about this.
[2020-09-08] MEDS: lisinopril 5mg tablet PO SCH ×2 (08:00→20:00)
[2020-09-08] MEDS ORDERED: ipratropium/albuterol 3ml nebule NEB ONE (08:40)
[2020-09-08] MEDS ORDERED: morphine 2 MG/ML inj. syringe IV PRN ×2 (10:05→14:20)
[2020-09-08] MEDS ORDERED: ondansetron/PF 4mg/2ml inj IV PRN ×2 (10:05→14:20)
[2020-09-08] MEDS ORDERED: ringers solution, lacted 1,000 ML IV SCH ×2 (10:05→14:20)
[2020-09-08] MEDS ORDERED: meperidine/PF 25mg/ml syringe IV PRN ×7 (10:05→14:20)
[2020-09-08] MEDS ORDERED: proCHLORperazine 10 MG/2 ml inj IV PRN ×2 (10:05→14:20)
[2020-09-08] MEDS ORDERED: morphine 4 MG/ML inj SYRINge IV PRN ×2 (10:05→14:20)
--- NOTE | 2020-09-08 10:18 | NUR ---
Patient just left the room, went to OR for surgery. Report given over the phone to JEIMY Izquierdo from Recovery room Addendum: 09/08/20 at 1019 by Di Martinez RN Patient left the room with her IVF running and has Dilaudid CADD with her. I communicated this to JEIMY Izquierdo during report
[2020-09-08] MEDS ORDERED: famotidine/PF 10 mg/ml inj IV ONE (10:45)
--- NOTE | 2020-09-08 10:47 | NUR ---
Initial: Pt admit with hematochezia and transaminitis. CT showing irregular liver contour concerning for poss cirrhosis per MD notes. Pt s/p EGD with no significant findings and a colonoscopy which found cecal mass per MD notes. Pt NPO and going to OR today. Pt reports being hungry per MD notes. LBM 2/2 documented as liquid with 13 BMs per I&O, pt s/p bowel prep with GoLytely. No nutrition intervention implemented at this time given NPO status. Will continue to follow closely and make recommendations as appropriate. Recommendations: 1) Advance to regular diet as medically indicated 2) Bowel care per rx 3) Scaled weights per rx Addendum: 09/08/20 at [address] Amended: Links added.
[2020-09-08] MEDS ORDERED: BUPIVAcaine/PF 2.5mg/ml (0.25%) 10ml vial ONE ×2 (11:07→12:57)
[2020-09-08] MEDS ORDERED: BUPIVACAINE liposomal/PF 13.3 MG/ML vial IM ONE (11:08)
[2020-09-08] MEDS ORDERED: midazolam 2 mg/2 ml injection ONE (11:12)
[2020-09-08] MEDS ORDERED: sevoflurane 250ml liquid IH ONE (11:15)
[2020-09-08] MEDS ORDERED: ceFOXitin 2,000 MG/NS 100 ML ADD-VANTAGE bag IV ONE (11:15)
[2020-09-08] MEDS ORDERED: fentaNYL /PF 50mcg/ml 5ml ampule ONE (12:01)
[2020-09-08] MEDS ORDERED: neostigmine methylsulfate 1 MG/ML 10ml vial ONE (12:20)
[2020-09-08] MEDS ORDERED: rocuronium 10mg/ml inj IV ONE (12:21)
[2020-09-08] MEDS ORDERED: propofol inj 20 ML IV ONE (12:21)
[2020-09-08] MEDS ORDERED: glycopyrrolate 0.2mg/ml inj ONE (12:21)
[2020-09-08] MEDS ORDERED: ondansetron/PF 4mg/2ml inj ONE (12:21)
[2020-09-08] MEDS ORDERED: LIDOcaine 2% (20mg/ml) 5ml vial ONE (12:21)
[2020-09-08] MEDS ORDERED: dexamethasone sod phosphate 4mg/ml inj. ONE (12:21)
[2020-09-08] MEDS ORDERED: ePHEDrine 50MG/ML INJ. ONE (12:21)
[2020-09-08 13:17] LABS: HBSAG SCREEN Negative (Negative); HEPATITIS C ANTIBODY >11.0 s/co ratio (0.0-0.9)
--- NOTE | 2020-09-08 13:18 | NUR ---
Received from OR via surgical bed, accompanied by Anesthesiologist Jefry and report given by Anesthesiolgist. Pt still has LM in place, at bedside to remove, placed on mask at 10L and sats 100%. Otherwise all VS stable. SCDs on, burger cath in plce, yellow urine draining. Abdomen with lap sites x4 covered in bandaids and small midline with some packing covered by island dressing, mild shadowing, outlined. 20G with IVF LR at 100cc/hr. Pt sleepy not yet responsive but stable.
[2020-09-08] MEDS: meperidine/PF 25mg/ml syringe IV PRN ×2 (13:49→14:24)
--- NOTE | 2020-09-08 13:55 | NUR ---
Report called to Letty MUNSON and all questions answered.
--- NOTE | 2020-09-08 14:15 | NUR ---
Called anesthesia to report pain uncontrolled and cautious to give too many narcotics because HR drops significantly to 40s. States he will assess orders.
--- NOTE | 2020-09-08 14:20 | NUR ---
Sheets saturated with liquid brown watery stool. Changed entire bed to clean linens.
--- NOTE | 2020-09-08 14:24 | NUR ---
Report called to receiving nurse. Transferred via surgical bed. Belongings remain in patient's room. Special Issues communicated to receiving nurse JEIMY Saenz, second call with update given to charge nurse prior to transferring patient. Pt sleeping and resting peacecfully. Pt has pain button and call light in her hand. BLL. Chart at bedside.
--- NOTE | 2020-09-08 14:30 | NUR ---
MD at bedside states to give 1g tlenol. Order placed will administer.
[2020-09-08] MEDS ORDERED: acetaminophen 1,000mg/100ml IV 100 ML IV ONE (14:40)
--- NOTE | 2020-09-08 16:19 | NUR ---
Patient came back to her room from PACU before 4pm today. When I checked the midline dressing, the dressing was wet with blood, minimal amount but leaking out a little bit. Dressing reinforced, abd pad applied and secured with tape. Charge nurse Ariana was notified about this. Also patient was in a lot of pain, I instructed her to use her Dilaudid CADD for her pain, she refused, she states "it makes me feel like I want to throw up. Will give Toradol for pain instead.
[2020-09-08] MEDS: ketorolac trometh. 30mg/ml inj. IV SCH ×2 (16:23→19:59)
[2020-09-08] MEDS: ondansetron/PF 4mg/2ml inj IV PRN (16:32)
--- NOTE | 2020-09-08 16:46 | NUR ---
Patient was given Toradol IV for pain and Zofran as patient stated that she feels nauseous when she gets Dilaudid. I encouraged patient and the daughter on the phone also instructing patient to accept the Dilaudid as it will help with the pain. Patient still did not want to get Dilaudid from her INSECTICIDE SPRAYER. I gave Tylenol 650mg PO as well per patient's request. I explained to patient that anesthesia wearing off thats why she was feeling the pain now.
--- NOTE | 2020-09-08 18:54 | NUR ---
Patient in room [facility] 350. I have received report from JEIMY Hidalgo and had the opportunity to ask questions and assume patient care.
[2020-09-08] MEDS: proCHLORperazine 10 MG/2 ml inj IV PRN (19:59)
[2020-09-08] MEDS ORDERED: acetaminophen 1,000mg/100ml IV 100 ML IV SCH (20:00)
[2020-09-09] VITALS: BP 152/76
[2020-09-09] MEDS: HYDROmorphone/NS 1 mg/ml CADD 50 ML IV SCH ×12 (01:00→23:25)
[2020-09-09] MEDS: ketorolac trometh. 30mg/ml inj. IV SCH ×4 (01:35→19:24)
[2020-09-09] MEDS: proCHLORperazine 10 MG/2 ml inj IV PRN (01:35)
[2020-09-09] MEDS: normal saline 1000ml 1,000 ML IV SCH ×2 (04:19→14:02)
--- NOTE | 2020-09-09 04:53 | NUR ---
Patient refusing walk, denies passing gas.
--- NOTE | 2020-09-09 06:09 | NUR ---
Problems reprioritized. Patient report given, questions answered & plan of care reviewed with JEIMY Hidalgo.
[2020-09-09 07:00] VITALS: BP 136/70
[2020-09-09] MEDS: lisinopril 5mg tablet PO SCH ×2 (08:00→19:24)
--- NOTE | 2020-09-09 08:58 | NUR ---
Patient refused her scheduled meds, only agreed with Toradol at this time. She also refused any further assessment, she just let me look at her surgical wound dressing on her abdomen. Wound dressing dry and intact at this time. Addendum: 09/09/20 at 0901 by Di Martinez RN Patient asked me to leave her alone and complaining that we are bothering her every 5 minutes. The last time I saw her was 1 hr ago. She told me she is in pain so I offered the Toradol scheduled dose at least in which she agreed to.
--- NOTE | 2020-09-09 10:35 | NUR ---
D/c'd burger catheter as ordered. Patient tolerated the procedure. Encouraged patient to walk today with the nursing staff
[2020-09-09 11:00] VITALS: BP 104/49
--- NOTE | 2020-09-09 14:06 | NUR ---
Patient voided to the restroom, missed the hat so the urine was not measured. Patient also walked with the PLASTIC INJECTION MOLD MAKER x 2 laps, tolerated
[2020-09-09 18:00] VITALS: BP 137/84
--- NOTE | 2020-09-09 18:06 | NUR ---
Patient in room [facility] 350B. I have received report from JEIMY Sevilla and had the opportunity to ask questions and assume patient care.
--- NOTE | 2020-09-09 18:17 | NUR ---
Problems reprioritized. Patient report given, questions answered & plan of care reviewed with Latanya MUNSON.
[2020-09-10] VITALS: BP 119/81
[2020-09-10] MEDS: normal saline 1000ml 1,000 ML IV SCH ×4 (00:41→23:02)
[2020-09-10] MEDS: HYDROmorphone/NS 1 mg/ml CADD 50 ML IV SCH ×7 (01:00→13:00)
[2020-09-10] MEDS: ketorolac trometh. 30mg/ml inj. IV SCH ×4 (02:26→19:35)
--- NOTE | 2020-09-10 06:15 | NUR ---
Problems reprioritized. Patient report given, questions answered & plan of care reviewed with JEIMY Green.
--- NOTE | 2020-09-10 06:45 | NUR ---
Patient in room [facility] 350. I have received report from JEIMY Pelaez and had the opportunity to ask questions and assume patient care.
[2020-09-10] MEDS: lisinopril 5mg tablet PO SCH ×2 (07:45→19:36)
[2020-09-10 08:00] VITALS: BP 149/91
[2020-09-10 12:00] VITALS: BP 100/59
--- NOTE | 2020-09-10 13:38 | NUR ---
Reassessment: Pt s/p colon and small bowel resection 2/3. Patient's diet has been advanced to clear liquids, documented with 50% PO intake. Pt not meeting estimated nutrient needs though unable to given current diet order. Pt with c/o abdominal pain, likely to impact PO intake. LBM 2/4 though with hypoactive bowel sounds with flatus present per physical assessment. Pt would benefit from opiate antagonist for bowel regularity with MD approval given Hydromorphone CADD. Will continue to follow closely and make recommendations as appropriate. Recommendations: 1) Advance to low fiber/low residue diet as medically indicated 2) Bowel care per rx; consider opioid antagonist with MD approval given Hydromorphone CADD 3) Scaled weights per rx Addendum: 09/10/20 at [address] Amended: Links added.
--- NOTE | 2020-09-10 18:30 | NUR ---
Patient in room [facility] 350. I have received report from Norma MUNSON and had the opportunity to ask questions and assume patient care.
--- NOTE | 2020-09-10 19:10 | NUR ---
Problems reprioritized. Patient report given, questions answered & plan of care reviewed with JEIMY Nunez. patient passing gas, diet advance to full liquid. CADD d/C'd, pain well controlled. Dressing changed per charge nurse request. no s/s of infection noted.
[2020-09-10] MEDS: HYDROcodone/acetaminophen 10/325mg tab PO PRN ×2 (19:53→23:53)
[2020-09-10 20:00] VITALS: BP 129/76
[2020-09-10] MEDS: ondansetron/PF 4mg/2ml inj IV PRN (23:10)
[2020-09-11] VITALS: BP_SYST 148; BP_SYST 150; BP_DIAS 81; BP_DIAS 93
[2020-09-11] MEDS: ketorolac trometh. 30mg/ml inj. IV SCH ×4 (02:14→19:51)
[2020-09-11] MEDS: morphine 2 MG/ML inj. syringe IV PRN ×3 (03:30→22:13)
[2020-09-11] MEDS: normal saline 1000ml 1,000 ML IV SCH ×2 (06:05→16:05)
--- NOTE | 2020-09-11 06:27 | NUR ---
Problems reprioritized. Patient report given, questions answered & plan of care reviewed with Norma MUNSON.
--- NOTE | 2020-09-11 06:39 | NUR ---
Patient in room [facility] 350. I have received report from JEIMY Nunez and had the opportunity to ask questions and assume patient care.
[2020-09-11] MEDS: lisinopril 5mg tablet PO SCH ×2 (07:19→19:52)
[2020-09-11] MEDS: heparin, porcine 5000 units/ml vial SQ SCH ×2 (07:21→19:51)
[2020-09-11] MEDS: HYDROcodone/acetaminophen 10/325mg tab PO PRN ×2 (07:28→19:52)
[2020-09-11 08:00] VITALS: BP 123/84
[2020-09-11 12:00] VITALS: BP 105/65
[2020-09-11 18:00] VITALS: BP 168/85
--- NOTE | 2020-09-11 18:31 | NUR ---
Problems reprioritized. Patient report given, questions answered & plan of care reviewed with JEIMY Nunez.
--- NOTE | 2020-09-11 20:15 | NUR ---
pt found upset about pain medications not being given "since 2." and IV pump alarming. explain circumstance of the start of shift to pt. and was able to agree upon a plan of care with pt. will continue to monitor.
[2020-09-12] MEDS: HYDROcodone/acetaminophen 10/325mg tab PO PRN ×2 (00:14→04:31)
[2020-09-12] MEDS: ketorolac trometh. 30mg/ml inj. IV SCH (02:29)
[2020-09-12] MEDS: normal saline 1000ml 1,000 ML IV SCH (03:04)
--- NOTE | 2020-09-12 06:10 | NUR ---
Problems reprioritized. Patient report given, questions answered & plan of care reviewed with Alethea MUNSON.
[2020-09-12 06:30] VITALS: BP 146/80
[2020-09-12 11:00] VITALS: BP 107/68
--- NOTE | 2020-09-12 11:02 | NUR ---
PAGER ID: [phone] MESSAGE: MARTIN Garcia [phone] fyi UNABLE TO ADMINISTER HEPARIN WITH LABS IN LAST 72 HOUR. WILL HOLD HEPARIN UNTIL GIVEN ORDERS TO DO OTHERWISE. HANANE [phone]
[2020-09-12 11:03] VITALS: BP_SYST 148
[2020-09-12] MEDS: lisinopril 5mg tablet PO SCH (11:03)
--- NOTE | 2020-09-12 11:37 | NUR ---
PAGER ID: [phone] MESSAGE: Cal Lopeznette [id number] LEAVING AMA NOW. CURRENTLY STILL IN HOSPITAL. WILL NOTIFY CHAMP. HANANE [phone]
--- NOTE | 2020-09-12 11:40 | NUR ---
PT. CONCERNED THAT SHE IS NOT TAKING "TORENTAL". WROTE DOWN THAT THE MEDICATION IS TORDOL AND THAT IS BEING HELD TEMPORARILY DUE TO THE FACT THAT THERE HAVE NOT BEEN LABS DRAWN. WROTE DOWN THAT I NEEDED THE DOCTOR TO ORDER THE LABS. WROTE DOWN TO THE PT. THAT I COULD BRING HER NORCO TO HER. PT. REFUSES TO READ NOTES HOWEVER STATES SHE IS DEAF AND GOES ON TO BE CONCERNED ABOUT A DIFFERENT PT. BEING HELPED BY 2 PHYSICAL THERAPY MEMBERS. REDIRECTED PT. TO PAPER NOTES WITH EXPLANATION ON IT. PT BECAME EXTREMELY AGITATED TURNING AROUND AND YELLING "I JUST WANT MY MEDS!" PT STARTED RECORDING ON HER PHONE. ASKED SEVERAL TIMES FOR PT. TO STOP RECORDING IN WHICH PT. RESPONDED AND STATED SHE HAD THE RIGHT TO USE HER PHONE. SECURITY CALLED AND ANIMAL HUSBANDRY PROFESSOR MADE AWARE OF SITUATION. PRIMARY RN CAME INTO ROOM WHEN PT. WAS WALKING AROUND HALLWAYS. PT. MET RN AT ROOM AND RN ATTEMPTED TO TELL HER THAT SHE HAD NORCO FOR HER BUT PT STATED"LET ME IN MY ROOM!" BY THEN ANIMAL HUSBANDRY PROFESSOR HAD ARRIVED. PRIMARY RN WAS NOT TRYING TO KEEP PT. OUT OF HER ROOM WAS STANDING IN DOORWAY AND CONFRONTATIONAL PT. WAS RIGHT IN FRONT OF HER. PT STARTED SCREAMING "i'M GONNA GET YOU FIRED! i HAVE THE RIGHT TO LEAVE." MD BRYSON MADE AWARE. NO RESPONSE FROM . AMA PAPERWORK PREPARED BUT PT REFUSED TO SIGN IT STATING "I HAVE TO TALK TO MY SEISMOLOGY TECHNICAL OFFICER FIRST." CHARGE REMOVED IV AND PT HAD FRIEND PICK HER UP DOWNSTAIRS. SECURITY ESCORTED PT. TO DOWNSTAIRS.
--- NOTE | 2020-09-12 11:57 | NUR ---
Alethea,RN reported pt was upset about her medications and was now refusing to go into her room. RN stated pt was upset with her and wanted to leave AMA. This RN attempted to speak to pt. Pt is known to have significant hearing loss but does not know sign language. Pt states she can read lips and read. Communication was a combination of writing and verbal (with masks pulled down so pt could read lips). Pt also refused to pull her mask up while 6ft distance was unattainable. The pt continued refusing to go into her room, yet stated her RN would not let her into her room. Although I repeatedly reassured her that she could go into her room at any time. Security was notified and arrived on unit. Pt became increasingly loud and accused nursing staff of ignoring another patient's needs that had been walking w/ PTx in the hallway. Pt then used her phone to call "Ranjith" and stated her friend would be picking her up. Pt was offered to switch out her nurse, pt still refused to stay. She said wanted to go to [facility], but was instructed we can not transfer her to [facility]. Return call from Dr. Alba was still pending. Pt remained in hallway talking loudly to friend on phone "waiting for them to pick me up". Security was excused until pt ready to leave the building. Pt continued to stay in hallway, and demanded she wanted her belongings brought out of her room to her. IV was removed from L AC, canula intact per pt's demand. "Ranjith" could be heard on pt's phone instructing pt that she was downstairs waiting for pt to arrive. Pt was thoroughly instructed about the risks to leaving AMA. Pt refused to sign AMA form. Pt refused to put on her clothes and continued to leave in hospital gown. Pt was accompanied to lobby by security, with staff also to push cart carrying pt's belongings. According to staff upon their return to the unit the patient's ride had gone to the wrong hospital but was on their way to p/u pt. Pt stated to eusebio Wong, that "She's on her way to get me." Belongings left with pt. Dr. Alba notified.
--- NOTE | 2020-09-12 14:09 | NUR ---
Rec'd call from pt's daughter, Pratima Berman ([phone]) inquiring about the pt. Pratima is listed under "Contact Information" on the SBAR.She was informed pt had left the hospital AMA.
[2020-09-13] MEDS ORDERED: IBUP-24 PO (14:11)
== END 2020-09-12 11:58 | disposition left against medical advice (07) | DRG 230 ==
LOC: ER 14:53 → ED HOLD 18:04 → EDBEDREQ 18:49 → PCU 3S 19:20 → SUR 3N 09-05 16:47
PROVIDERS: ADMIT Internal Medicine; ATTEND Internal Medicine
PROC: 3E0234Z Introduction of Serum, Toxoid and Vaccine into Muscle, Percutaneous Approach (ICD-10-PCS; 2020-09-04)
PROC: 3E02340 Introduction of Influenza Vaccine into Muscle, Percutaneous Approach (ICD-10-PCS; 2020-09-04)
PROC: 0DB68ZX Excision of Stomach, Via Natural or Artificial Opening Endoscopic, Diagnostic (ICD-10-PCS; 2020-09-04)
PROC: 0DBN8ZX Excision of Sigmoid Colon, Via Natural or Artificial Opening Endoscopic, Diagnostic (ICD-10-PCS; 2020-09-05)
PROC: 0DBL8ZX Excision of Transverse Colon, Via Natural or Artificial Opening Endoscopic, Diagnostic (ICD-10-PCS; 2020-09-05)
PROC: 0DBH8ZX Excision of Cecum, Via Natural or Artificial Opening Endoscopic, Diagnostic (ICD-10-PCS; 2020-09-05)
PROC: BW251ZZ Computerized Tomography (CT Scan) of Chest, Abdomen and Pelvis using Low Osmolar Contrast (ICD-10-PCS; 2020-09-06)
PROC: 0DB80ZZ Excision of Small Intestine, Open Approach (ICD-10-PCS; 2020-09-08)
PROC: 3E0T3BZ Introduction of Anesthetic Agent into Peripheral Nerves and Plexi, Percutaneous Approach (ICD-10-PCS; 2020-09-08)
PROC: 0DBK0ZZ Excision of Ascending Colon, Open Approach (ICD-10-PCS; principal; 2020-09-08 11:15)
DX: K92.1 Melena (principal); K56.691 Other complete intestinal obstruction; K76.6 Portal hypertension; D62 Acute posthemorrhagic anemia; C78.6 Secondary malignant neoplasm of retroperitoneum and peritoneum; C18.0 Malignant neoplasm of cecum; F15.90 Other stimulant use, unspecified, uncomplicated; F17.210 Nicotine dependence, cigarettes, uncomplicated; G89.29 Other chronic pain; B19.20 Unspecified viral hepatitis C without hepatic coma; K64.8 Other hemorrhoids; K63.5 Polyp of colon; I85.00 Esophageal varices without bleeding; K29.70 Gastritis, unspecified, without bleeding; K31.89 Other diseases of stomach and duodenum; K57.30 Diverticulosis of large intestine without perforation or abscess without bleeding; K63.9 Disease of intestine, unspecified; Z20.822 Contact with and (suspected) exposure to COVID-19; R74.01 Elevation of levels of liver transaminase levels; Z53.29 Procedure and treatment not carried out because of patient's decision for other reasons; Z23 Encounter for immunization; Z88.0 Allergy status to penicillin
CPT/HCPCS: 36415; 43239; 45380; 45381; 45385; 71260; 74177; 76700; 80053; 81001; 81025; 82272; 82948; 83690; 85025; 85610; 85730; 86803; 86885; 86900; 86901; 87081; 87340; 87426; 90732; 93005; 94640; 94760; 96374; 99152; 99153; 99285; A4618; A4620; A6266; A7000; C1758; C1773; C9113; C9290; G0378; J0131; J0694; J0780; J1100; J1170; J1644; J1885; J2001; J2175; J2250; J2270; J2405; J2704; J2710; J3010; J3490; J7030; J7040; J7120; Q2039; Q9963; Q9967

== ENCOUNTER 2020-09-13 11:50 | Inpatient (IN) | payer MEDICAID ==
[~2020-09-13] VITALS: Ht 167.6 cm; Wt 63.6 kg
[~2020-09-13 11:50] MED LIST changes: +ACET-76 PO; +ASPI-12 PO; -OMEP-50 PO
[2020-09-13] MEDS ORDERED: oxyCODONE SR 10mg (sust. release) tab PO ONE (13:05)
[2020-09-13 13:30] LABS: BASOPHILS % (AUTO) 0.4 % (0-1); EOSINOPHILS # (AUTO) 0.1 X10'3 (0-0.9); EOSINOPHILS % (AUTO) 2.1 % (0-6); HEMATOCRIT 30.1 % (35.0-45.0); LYMPHOCYTES # (AUTO) 0.8 X10'3 (1.1-4.8); LYMPHOCYTES % (AUTO) 13.3 % (21-51); MEAN CORPUSCULAR HEMOGLOBIN 29.1 PG (27.0-31.0); MEAN CORPUSCULAR HGB CONC 33.1 g/dL (33.0-36.5); MEAN CORPUSCULAR VOLUME 87.7 FL (78-98); MONOCYTES # (AUTO) 0.5 X10'3 (0-0.9); NEUTROPHILS # (AUTO) 4.5 X10'3 (1.8-7.7); NEUTROPHILS % (AUTO) 76.2 % (42-75); PLATELET COUNT 177 X10'3 (140-440); RED BLOOD COUNT 3.43 X10'6 (4.20-5.60); RED CELL DISTRIBUTION WIDTH 13.7 % (11.5-14.5)
[2020-09-13 13:43] LABS: ALANINE AMINOTRANSFERASE 49 U/L (12-78); ALBUMIN 2.4 G/DL (3.4-5.0); ALBUMIN/GLOBULIN RATIO 0.6 (1.1-1.5); ALKALINE PHOSPHATASE 80 IU/L (46-116); ANION GAP 7 (8-16); ASPARTATE AMINO TRANSFERASE 53 U/L (10-37); BILIRUBIN,TOTAL 0.8 MG/DL (0.1-1.0); BLOOD UREA NITROGEN 7 MG/DL (7-18); BUN/CREATININE RATIO 12.7 (6.6-38.0); CALCIUM 8.6 MG/DL (8.5-10.1); CHLORIDE 106 MMOL/L (99-107); CREATININE 0.55 MG/DL (0.40-0.90); GLUCOSE 94 MG/DL (70-104); POTASSIUM 3.4 MMOL/L (3.5-5.1); SODIUM 144 MMOL/L (135-145); TOTAL CARBON DIOXIDE 31.3 MMOL/L (24-32); TOTAL PROTEIN 6.4 G/DL (6.4-8.2); eGFR > 90 ML/MIN
[2020-09-13] MEDS ORDERED: IBUP-24 PO (14:11)
[2020-09-13] MEDS ORDERED: acetaminophen 325mg tablet PO PRN ×3 (14:30)
[2020-09-13] MEDS ORDERED: haloperidol lactate 5mg/ml inj IM PRN (14:30)
[2020-09-13] MEDS ORDERED: haloperidol 5mg tablet PO PRN (14:30)
[2020-09-13] MEDS ORDERED: HYDROcodone/acetaminophen 10/325mg tab PO PRN (14:30)
[2020-09-13] MEDS ORDERED: HYDROcodone/acetaminophen 5mg/325mg tablet PO PRN (14:30)
[2020-09-13] MEDS ORDERED: magnesium hydroxide 30ml (MOM) UD suspension PO PRN (14:30)
[2020-09-13] MEDS ORDERED: magnesium 2GM in 50ml NS 50 ML IV PRN (14:30)
[2020-09-13] MEDS ORDERED: albuterol 2.5 MG/3 ML nebule NEB PRN (14:30)
[2020-09-13] MEDS ORDERED: ondansetron/PF 4mg/2ml inj IV PRN (14:30)
[2020-09-13] MEDS ORDERED: potassium Cl 20 mEq SR tablet PO PRN ×2 (14:30)
[2020-09-13] MEDS ORDERED: mag hydrox/Alum hydrox/simeth 30ml oral suspension PO PRN (14:30)
[2020-09-13] MEDS ORDERED: magnesium 4gm in 100ml NS 100 ML IV PRN (14:30)
[2020-09-13] MEDS ORDERED: ipratropium/albuterol 3ml nebule NEB PRN (14:30)
[2020-09-13] MEDS ORDERED: potassium Cl 40MEQ/1/2NS 520ml 520 ML IV PRN ×2 (14:30)
--- NOTE | 2020-09-13 15:47 | NUR ---
spoke to tod at surgical unit as per him nurse is on break will be back in 10 mins .
[2020-09-13] MEDS: normal saline 1000ml 1,000 ML IV SCH (15:52)
--- NOTE | 2020-09-13 16:00 | NUR ---
Received report from JEIMY Brooke. Awaiting patient arrival to room 347A.
--- NOTE | 2020-09-13 16:40 | NUR ---
Received patient to room 350A however patient refusing room assignment stating that she had "bad dreams in that room and hallucinating." gas meter mechanic Marilyn assigned patient to different room ( room 358A) which patient was happy with. Patient alert and oriented, DEAF but able to read lips. Patient c/o pain 8 but [place] was given in ER an hour prior. Patient refusing to have abd surgical incision dressing removed to be assessed and photos of wounds to be taken as she states that in ER they "took it off and put new ones in already." Patient oriented to room and call light. Call light placed within patient's reach. Bed is low and locked, non skid socks placed. Patient states she is comfortable at this time and will be sleeping. Will continue to monitor.
[2020-09-13 16:42] VITALS: BP 164/94
[2020-09-13] MEDS ORDERED: cloNIDine 0.1 mg tablet PO PRN (17:30)
--- NOTE | 2020-09-13 18:35 | NUR ---
Problems reprioritized. Patient report given, questions answered & plan of care reviewed with JEIMY Pelaez.
[2020-09-13 20:00] VITALS: BP 141/82
[2020-09-13] MEDS: K and/or MAG REPLACEMENT MC SCH (20:00)
[2020-09-13] MEDS ORDERED: enoxaparin 40mg/0.4ml syringe SQ SCH (20:00)
[2020-09-13] MEDS: traMADol 50MG tablet PO PRN ×2 (20:07→20:09)
[2020-09-14] VITALS: BP 133/82
[2020-09-14] MEDS: normal saline 1000ml 1,000 ML IV SCH ×3 (01:40→19:56)
[2020-09-14] MEDS: traMADol 50MG tablet PO PRN ×3 (03:42→15:41)
[2020-09-14] MEDS: LORazepam 2 mg/ml vial IV PRN ×4 (03:49→22:11)
[2020-09-14 07:24] LABS: BASOPHILS % (AUTO) 0.6 % (0-1); EOSINOPHILS # (AUTO) 0.1 X10'3 (0-0.9); EOSINOPHILS % (AUTO) 2.6 % (0-6); HEMATOCRIT 28.7 % (35.0-45.0); HEMOGLOBIN 9.6 g/dl (12.0-16.0); LYMPHOCYTES # (AUTO) 1.2 X10'3 (1.1-4.8); LYMPHOCYTES % (AUTO) 21.7 % (21-51); MEAN CORPUSCULAR HEMOGLOBIN 29.1 PG (27.0-31.0); MEAN CORPUSCULAR HGB CONC 33.4 g/dL (33.0-36.5); MEAN CORPUSCULAR VOLUME 87.1 FL (78-98); MEAN PLATELET VOLUME 7.1 FL (7.4-10.4); MONOCYTES # (AUTO) 0.4 X10'3 (0-0.9); MONOCYTES % (AUTO) 8.1 % (2-12); NEUTROPHILS # (AUTO) 3.7 X10'3 (1.8-7.7); PLATELET COUNT 174 X10'3 (140-440); RED CELL DISTRIBUTION WIDTH 13.9 % (11.5-14.5); WHITE BLOOD COUNT 5.6 X10'3 (4.5-11.0)
[2020-09-14 07:28] VITALS: BP 157/107
[2020-09-14 07:38] LABS: ALANINE AMINOTRANSFERASE 39 U/L (12-78); ALBUMIN/GLOBULIN RATIO 0.5 (1.1-1.5); ALKALINE PHOSPHATASE 66 IU/L (46-116); AMYLASE 18 U/L (25-115); ANION GAP 5 (8-16); ASPARTATE AMINO TRANSFERASE 38 U/L (10-37); BILIRUBIN,TOTAL 0.6 MG/DL (0.1-1.0); BLOOD UREA NITROGEN 8 MG/DL (7-18); BUN/CREATININE RATIO 13.3 (6.6-38.0); CALCIUM 7.9 MG/DL (8.5-10.1); CHLORIDE 106 MMOL/L (99-107); GLUCOSE 83 MG/DL (70-104); LIPASE < 50 U/L (73-393); MAGNESIUM 1.6 MG/DL (1.5-2.4); PHOSPHORUS 3.9 MG/DL (2.3-4.5); POTASSIUM 3.8 MMOL/L (3.5-5.1); SODIUM 142 MMOL/L (135-145); TOTAL CARBON DIOXIDE 31.1 MMOL/L (24-32); TOTAL PROTEIN 5.7 G/DL (6.4-8.2); eGFR > 90 ML/MIN
[2020-09-14] MEDS: multivitamins, therapeutics tablet PO SCH (08:00)
[2020-09-14] MEDS: K and/or MAG REPLACEMENT MC SCH ×2 (08:00→19:56)
[2020-09-14] MEDS: folic acid 1mg tablet PO SCH (08:00)
[2020-09-14] MEDS: thiamine 100mg tablet PO SCH (10:03)
[2020-09-14 11:00] VITALS: BP 134/73
--- NOTE | 2020-09-14 17:38 | NUR ---
PAGER ID: [phone] MESSAGE: Ariana-Surg [phone] Re: [id number] Vijay Patient has a temp of 101 please call
--- NOTE | 2020-09-14 17:44 | NUR ---
Contacted Dr San regarding patient has a temp of 101 HR 81 BP 150/98 SPO2 91% RA, Received orders for Lactic acid, Procalcitonin, Blood cultures x2 , CT abd / pelvis with PO and IV contrast to rule out intra abdominal abcess.
[2020-09-14 18:00] VITALS: BP 180/105
--- NOTE | 2020-09-14 18:32 | NUR ---
Patient in room ALBERT 358A. I have received report from JEIMY Lane and had the opportunity to ask questions and assume patient care.
--- NOTE | 2020-09-14 19:07 | NUR ---
Problems reprioritized. Patient report given, questions answered & plan of care reviewed with Latanya MUNSON.
--- NOTE | 2020-09-14 21:45 | NUR ---
Patient screamed "help me" entered room and she verbalized that she needs to go pee. Got her up to toilet, cleaned up after she was done and safely placed her back in bed and gave blanket to cover. 5 minutes later, patient screamed again so I rushed to the room. Noted that she had a bowel movement in her panties. Offered to help her up to bathroom. She refused and said "bitch just clean me up." Cleaned up patient with wipes. Patient refused to have her panties removed so I cut them off with scissors. Another RN helped to change bed. Will continue to monitor.
[2020-09-14] MEDS: diatr meglu/diatrizoate 30ml oral sol.-(3 dose) bottle PO SCH (22:11)
[2020-09-15] MEDS: normal saline 1000ml 1,000 ML IV SCH ×2 (06:30→07:47)
--- NOTE | 2020-09-15 06:30 | NUR ---
Problems reprioritized. Patient report given, questions answered & plan of care reviewed with JEIMY Preston.
--- NOTE | 2020-09-15 06:54 | NUR ---
Patient in room ALBERT 358. I have received report from JEIMY Pelaez and had the opportunity to ask questions and assume patient care.
--- NOTE | 2020-09-15 07:01 | NUR ---
Patient refusing vital signs at this time. She states "let me wake up first in a while." Will retry again.
[2020-09-15 07:06] LABS: BASOPHILS % (AUTO) 0.5 % (0-1); EOSINOPHILS # (AUTO) 0.1 X10'3 (0-0.9); EOSINOPHILS % (AUTO) 1.7 % (0-6); HEMATOCRIT 27.8 % (35.0-45.0); HEMOGLOBIN 9.5 g/dl (12.0-16.0); LYMPHOCYTES % (AUTO) 17.9 % (21-51); MEAN CORPUSCULAR HEMOGLOBIN 29.2 PG (27.0-31.0); MEAN CORPUSCULAR VOLUME 85.9 FL (78-98); MEAN PLATELET VOLUME 6.8 FL (7.4-10.4); MONOCYTES # (AUTO) 0.6 X10'3 (0-0.9); MONOCYTES % (AUTO) 9.6 % (2-12); NEUTROPHILS # (AUTO) 4.1 X10'3 (1.8-7.7); NEUTROPHILS % (AUTO) 70.3 % (42-75); PLATELET COUNT 168 X10'3 (140-440); RED BLOOD COUNT 3.24 X10'6 (4.20-5.60); RED CELL DISTRIBUTION WIDTH 14.1 % (11.5-14.5); WHITE BLOOD COUNT 5.8 X10'3 (4.5-11.0)
--- NOTE | 2020-09-15 07:19 | NUR ---
Patient appears to be agitated and cussing. Patient refusing care and meds and asking for water and food. Patient deaf but is able to read lips and written information. Explained to patient that she is NPO for a cat scan. Patient took cat scan questionnaire with clip board and pen and threw it on floor. Patient stated she wanted to go back to sleep and that "I'm just your guinea pig." Patient unsteady on feet attempting to get to bsc. PCT Kellie attempted to assist patient to BSC but patient cussing at PCT stating "do not push me, get off of me." Attempted to explain to patient that we are attempting to assist her to BSC for safety purposes and we are not pushing on her but contact guard to assist to BSC. Patient sommer and puff cussing and went back to bed. Patient in bed with call light in place and bed alarm on. Will continue to monitor.
--- NOTE | 2020-09-15 07:33 | NUR ---
Dr Alba PAGER ID: [phone] MESSAGE: [id number]- Lori Linares- patient resistive to care, refusing vitals, refusing CT scan. agitated.- Mohan [id number]
[2020-09-15] MEDS: diatr meglu/diatrizoate 30ml oral sol.-(3 dose) bottle PO SCH ×2 (07:47→09:58)
[2020-09-15] MEDS: folic acid 1mg tablet PO SCH (07:47)
[2020-09-15] MEDS: multivitamins, therapeutics tablet PO SCH (07:47)
[2020-09-15] MEDS: thiamine 100mg tablet PO SCH (07:47)
[2020-09-15] MEDS: traMADol 50MG tablet PO PRN ×3 (07:53→22:41)
[2020-09-15 07:55] LABS: ALANINE AMINOTRANSFERASE 32 U/L (12-78); ALBUMIN 1.9 G/DL (3.4-5.0); ALBUMIN/GLOBULIN RATIO 0.5 (1.1-1.5); ALKALINE PHOSPHATASE 68 IU/L (46-116); AMYLASE 17 U/L (25-115); ANION GAP 8 (8-16); ASPARTATE AMINO TRANSFERASE 40 U/L (10-37); BILIRUBIN,TOTAL 0.8 MG/DL (0.1-1.0); BLOOD UREA NITROGEN 7 MG/DL (7-18); BUN/CREATININE RATIO 12.3 (6.6-38.0); CALCIUM 7.9 MG/DL (8.5-10.1); CHLORIDE 105 MMOL/L (99-107); CREATININE 0.57 MG/DL (0.40-0.90); GLUCOSE 92 MG/DL (70-104); LIPASE < 50 U/L (73-393); MAGNESIUM 1.6 MG/DL (1.5-2.4); PHOSPHORUS 3.5 MG/DL (2.3-4.5); POTASSIUM 3.6 MMOL/L (3.5-5.1); SODIUM 141 MMOL/L (135-145); TOTAL CARBON DIOXIDE 27.8 MMOL/L (24-32); TOTAL PROTEIN 5.7 G/DL (6.4-8.2); eGFR > 90 ML/MIN
--- NOTE | 2020-09-15 07:59 | NUR ---
patient non compliant and impulsive. attempted to pull out IV. Dr. Alba paged.
[2020-09-15] MEDS: K and/or MAG REPLACEMENT MC SCH ×2 (08:00→20:00)
[2020-09-15] MEDS: LORazepam 2 mg/ml vial IV PRN ×2 (09:58→19:04)
[2020-09-15] MEDS ORDERED: iohexol 300mg/ml 100ml inj. ONE (10:04)
--- NOTE | 2020-09-15 10:17 | NUR ---
Patient down to CT.
--- NOTE | 2020-09-15 10:36 | NUR ---
patient back to bed. bed low and locked, bed alarm on. call light inreach.
--- NOTE | 2020-09-15 11:31 | NUR ---
marine services technician in to see patient.
--- NOTE | 2020-09-15 12:23 | NUR ---
Dr. Alba aware patient has been non compliant and impulsive. Sitter PRN ordered. Will continue to monitor.
--- NOTE | 2020-09-15 12:49 | NUR ---
patient down to CT.
--- NOTE | 2020-09-15 13:09 | NUR ---
patient back from CT.
[2020-09-15] MEDS ORDERED: LORazepam 1 MG tablet PO PRN (14:30)
--- NOTE | 2020-09-15 15:25 | NUR ---
Dr Alba PAGER ID: [phone] MESSAGE: [id number]- Vic Linares- CT results in. Patient asking if she can go ahead and eat. Agitated she is still NPO. Thank you- Mohan [phone]
--- NOTE | 2020-09-15 18:43 | NUR ---
Problems reprioritized. Patient report given, questions answered & plan of care reviewed with JEIMY TRIPLETT.
--- NOTE | 2020-09-15 18:44 | NUR ---
Patient in room ALBERT 358. I have received report from JEIMY Preston and had the opportunity to ask questions and assume patient care.
[2020-09-16] VITALS: BP 156/110
[2020-09-16] MEDS: normal saline 1000ml 1,000 ML IV SCH ×3 (02:36→22:30)
--- NOTE | 2020-09-16 06:20 | NUR ---
Problems reprioritized. Patient report given, questions answered & plan of care reviewed with JEIMY Preston.
--- NOTE | 2020-09-16 06:36 | NUR ---
Patient in room ALBERT 358. I have received report from JEIMY Oglesby and had the opportunity to ask questions and assume patient care.
[2020-09-16] MEDS: traMADol 50MG tablet PO PRN (06:59)
[2020-09-16 07:00] VITALS: BP 135/96
[2020-09-16] MEDS: folic acid 1mg tablet PO SCH (07:01)
[2020-09-16] MEDS: thiamine 100mg tablet PO SCH (07:01)
[2020-09-16] MEDS: multivitamins, therapeutics tablet PO SCH (07:01)
[2020-09-16 07:14] LABS: BASOPHILS % (AUTO) 0.4 % (0-1); EOSINOPHILS # (AUTO) 0.1 X10'3 (0-0.9); EOSINOPHILS % (AUTO) 2.4 % (0-6); HEMATOCRIT 28.6 % (35.0-45.0); HEMOGLOBIN 9.6 g/dl (12.0-16.0); LYMPHOCYTES # (AUTO) 0.8 X10'3 (1.1-4.8); LYMPHOCYTES % (AUTO) 16.8 % (21-51); MEAN CORPUSCULAR HEMOGLOBIN 28.9 PG (27.0-31.0); MEAN CORPUSCULAR HGB CONC 33.5 g/dL (33.0-36.5); MEAN CORPUSCULAR VOLUME 86.3 FL (78-98); MEAN PLATELET VOLUME 7.2 FL (7.4-10.4); MONOCYTES # (AUTO) 0.5 X10'3 (0-0.9); MONOCYTES % (AUTO) 10.6 % (2-12); NEUTROPHILS # (AUTO) 3.4 X10'3 (1.8-7.7); NEUTROPHILS % (AUTO) 69.8 % (42-75); PLATELET COUNT 166 X10'3 (140-440); RED BLOOD COUNT 3.31 X10'6 (4.20-5.60); RED CELL DISTRIBUTION WIDTH 14.3 % (11.5-14.5); WHITE BLOOD COUNT 4.9 X10'3 (4.5-11.0)
[2020-09-16 07:40] LABS: ALANINE AMINOTRANSFERASE 31 U/L (12-78); ALBUMIN 2.1 G/DL (3.4-5.0); ALBUMIN/GLOBULIN RATIO 0.5 (1.1-1.5); ALKALINE PHOSPHATASE 72 IU/L (46-116); AMYLASE 18 U/L (25-115); ANION GAP 7 (8-16); ASPARTATE AMINO TRANSFERASE 40 U/L (10-37); BILIRUBIN,TOTAL 0.7 MG/DL (0.1-1.0); BLOOD UREA NITROGEN 10 MG/DL (7-18); BUN/CREATININE RATIO 17.2 (6.6-38.0); CALCIUM 8.1 MG/DL (8.5-10.1); CHLORIDE 104 MMOL/L (99-107); CREATININE 0.58 MG/DL (0.40-0.90); GLUCOSE 112 MG/DL (70-104); LIPASE < 50 U/L (73-393); MAGNESIUM 1.7 MG/DL (1.5-2.4); POTASSIUM 3.7 MMOL/L (3.5-5.1); SODIUM 139 MMOL/L (135-145); TOTAL CARBON DIOXIDE 28.2 MMOL/L (24-32); eGFR > 90 ML/MIN
[2020-09-16] MEDS: K and/or MAG REPLACEMENT MC SCH ×2 (08:00→19:37)
[2020-09-16] MEDS: LORazepam 2 mg/ml vial IV PRN ×3 (09:43→18:51)
--- NOTE | 2020-09-16 12:39 | NUR ---
AAYUSH Dao in to see patient.
--- NOTE | 2020-09-16 12:53 | NUR ---
Patient refusing to have ABD dressing changed this shift. Will try again. Dressing is CDI at this time.
[2020-09-16 18:00] VITALS: BP 168/100
--- NOTE | 2020-09-16 18:34 | NUR ---
Problems reprioritized. Patient report given, questions answered & plan of care reviewed with Ray Shankar.
--- NOTE | 2020-09-16 18:40 | NUR ---
Problems reprioritized. Patient report given, questions answered & plan of care reviewed with JEIMY Shankar.
--- NOTE | 2020-09-16 19:37 | NUR ---
Patient in room ALBERT 358. I have received report from BETHANIE MUNSON and had the opportunity to ask questions and assume patient care.
--- NOTE | 2020-09-16 23:38 | NUR ---
Problems reprioritized. Patient report given, questions answered & plan of care reviewed with STELLA MUNSON.
--- NOTE | 2020-09-16 23:46 | NUR ---
Patient in room ALBERT 358. I have received report from Vonnie RN and had the opportunity to ask questions and assume patient care. Pt is resting in bed comfortably, sitter at bedside. Reviewed and agree with Vonnie's RN charting. Will continue to monitor patient and address any and all needs.
[2020-09-17] VITALS: BP 140/86
[2020-09-17] MEDS: LORazepam 2 mg/ml vial IV PRN (00:29)
--- NOTE | 2020-09-17 06:25 | NUR ---
Problems reprioritized. Patient report given, questions answered & plan of care reviewed with Norma MUNSON.
--- NOTE | 2020-09-17 06:49 | NUR ---
Patient in room ALBERT 358. I have received report from JEIMY Sandy and had the opportunity to ask questions and assume patient care.
[2020-09-17 07:22] LABS: BASOPHILS % (AUTO) 0.5 % (0-1); EOSINOPHILS # (AUTO) 0.1 X10'3 (0-0.9); EOSINOPHILS % (AUTO) 2.1 % (0-6); HEMATOCRIT 30.2 % (35.0-45.0); HEMOGLOBIN 10.1 g/dl (12.0-16.0); MEAN CORPUSCULAR HEMOGLOBIN 28.9 PG (27.0-31.0); MEAN CORPUSCULAR HGB CONC 33.5 g/dL (33.0-36.5); MEAN CORPUSCULAR VOLUME 86.5 FL (78-98); MEAN PLATELET VOLUME 7.4 FL (7.4-10.4); MONOCYTES # (AUTO) 0.5 X10'3 (0-0.9); MONOCYTES % (AUTO) 10.8 % (2-12); NEUTROPHILS # (AUTO) 3.2 X10'3 (1.8-7.7); NEUTROPHILS % (AUTO) 65.6 % (42-75); PLATELET COUNT 176 X10'3 (140-440); RED BLOOD COUNT 3.49 X10'6 (4.20-5.60); RED CELL DISTRIBUTION WIDTH 14.3 % (11.5-14.5); WHITE BLOOD COUNT 4.9 X10'3 (4.5-11.0)
[2020-09-17 07:41] LABS: ALANINE AMINOTRANSFERASE 31 U/L (12-78); ALBUMIN/GLOBULIN RATIO 0.5 (1.1-1.5); ALKALINE PHOSPHATASE 79 IU/L (46-116); AMYLASE 17 U/L (25-115); ANION GAP 8 (8-16); ASPARTATE AMINO TRANSFERASE 43 U/L (10-37); BILIRUBIN,TOTAL 0.8 MG/DL (0.1-1.0); BLOOD UREA NITROGEN 8 MG/DL (7-18); BUN/CREATININE RATIO 15.1 (6.6-38.0); CALCIUM 7.9 MG/DL (8.5-10.1); CHLORIDE 103 MMOL/L (99-107); CREATININE 0.53 MG/DL (0.40-0.90); GLUCOSE 90 MG/DL (70-104); LIPASE < 50 U/L (73-393); MAGNESIUM 1.7 MG/DL (1.5-2.4); PHOSPHORUS 3.4 MG/DL (2.3-4.5); POTASSIUM 3.8 MMOL/L (3.5-5.1); SODIUM 139 MMOL/L (135-145); TOTAL CARBON DIOXIDE 28.3 MMOL/L (24-32); TOTAL PROTEIN 6.1 G/DL (6.4-8.2); eGFR > 90 ML/MIN
[2020-09-17 08:00] VITALS: BP 160/94
[2020-09-17] MEDS: K and/or MAG REPLACEMENT MC SCH ×2 (08:00→20:00)
[2020-09-17] MEDS: multivitamins, therapeutics tablet PO SCH (08:21)
[2020-09-17] MEDS: folic acid 1mg tablet PO SCH (08:21)
[2020-09-17] MEDS: thiamine 100mg tablet PO SCH (08:21)
[2020-09-17] MEDS: normal saline 1000ml 1,000 ML IV SCH ×2 (08:30→18:30)
[2020-09-17 12:00] VITALS: BP 123/78
[2020-09-17] MEDS ORDERED: LORazepam 2 mg/ml vial IV PRN (14:30)
[2020-09-17] MEDS: LORazepam 1 MG tablet PO PRN (14:36)
[2020-09-17] MEDS: traMADol 50MG tablet PO PRN ×2 (14:36→19:26)
--- NOTE | 2020-09-17 18:30 | NUR ---
Patient in room ALBERT 358. I have received report from Norma MUNSON and had the opportunity to ask questions and assume patient care.
[2020-09-17 20:00] VITALS: BP 102/71
--- NOTE | 2020-09-17 20:25 | NUR ---
Problems reprioritized. Patient report given, questions answered & plan of care reviewed with JEIMY Nunez.
[2020-09-18] MEDS: LORazepam 1 MG tablet PO PRN (02:49)
[2020-09-18] MEDS: traMADol 50MG tablet PO PRN ×2 (02:50→09:20)
[2020-09-18] MEDS: normal saline 1000ml 1,000 ML IV SCH (04:30)
--- NOTE | 2020-09-18 06:23 | NUR ---
Problems reprioritized. Patient report given, questions answered & plan of care reviewed with Norma MUNSON.
[2020-09-18 06:47] LABS: BASOPHILS % (AUTO) 0.5 % (0-1); EOSINOPHILS # (AUTO) 0.1 X10'3 (0-0.9); EOSINOPHILS % (AUTO) 2.6 % (0-6); HEMATOCRIT 27.1 % (35.0-45.0); HEMOGLOBIN 9.1 g/dl (12.0-16.0); LYMPHOCYTES # (AUTO) 0.8 X10'3 (1.1-4.8); LYMPHOCYTES % (AUTO) 18.3 % (21-51); MEAN CORPUSCULAR HEMOGLOBIN 28.9 PG (27.0-31.0); MEAN CORPUSCULAR HGB CONC 33.5 g/dL (33.0-36.5); MEAN CORPUSCULAR VOLUME 86.1 FL (78-98); MEAN PLATELET VOLUME 7.4 FL (7.4-10.4); MONOCYTES # (AUTO) 0.5 X10'3 (0-0.9); MONOCYTES % (AUTO) 10.3 % (2-12); NEUTROPHILS % (AUTO) 68.3 % (42-75); PLATELET COUNT 174 X10'3 (140-440); RED BLOOD COUNT 3.15 X10'6 (4.20-5.60); RED CELL DISTRIBUTION WIDTH 14.4 % (11.5-14.5); WHITE BLOOD COUNT 4.4 X10'3 (4.5-11.0)
--- NOTE | 2020-09-18 06:57 | NUR ---
Patient in room ALBERT 358. I have received report from JEIMY Nunez and had the opportunity to ask questions and assume patient care.
[2020-09-18 07:08] LABS: ALANINE AMINOTRANSFERASE 35 U/L (12-78); ALBUMIN 2.1 G/DL (3.4-5.0); ALBUMIN/GLOBULIN RATIO 0.5 (1.1-1.5); ALKALINE PHOSPHATASE 81 IU/L (46-116); AMYLASE 29 U/L (25-115); ANION GAP 5 (8-16); ASPARTATE AMINO TRANSFERASE 44 U/L (10-37); BILIRUBIN,TOTAL 0.4 MG/DL (0.1-1.0); BLOOD UREA NITROGEN 9 MG/DL (7-18); BUN/CREATININE RATIO 16.7 (6.6-38.0); CALCIUM 8.1 MG/DL (8.5-10.1); CHLORIDE 106 MMOL/L (99-107); CREATININE 0.54 MG/DL (0.40-0.90); GLUCOSE 83 MG/DL (70-104); LIPASE 137 U/L (73-393); MAGNESIUM 1.8 MG/DL (1.5-2.4); PHOSPHORUS 3.6 MG/DL (2.3-4.5); POTASSIUM 3.3 MMOL/L (3.5-5.1); SODIUM 141 MMOL/L (135-145); TOTAL CARBON DIOXIDE 30.1 MMOL/L (24-32); TOTAL PROTEIN 6.1 G/DL (6.4-8.2); eGFR > 90 ML/MIN
[2020-09-18 08:00] VITALS: BP 121/71
[2020-09-18] MEDS: K and/or MAG REPLACEMENT MC SCH (08:00)
[2020-09-18] MEDS: folic acid 1mg tablet PO SCH (09:18)
[2020-09-18] MEDS: multivitamins, therapeutics tablet PO SCH (09:18)
[2020-09-18] MEDS: thiamine 100mg tablet PO SCH (09:18)
[2020-09-18] MEDS ORDERED: THIA50TA10 PO (11:28)
[2020-09-18] MEDS ORDERED: TRAM50TA2 PO (11:28)
[2020-09-18] MEDS ORDERED: POTA20TA19 PO (11:28)
[2020-09-18] MEDS ORDERED: MULT-25 PO (11:28)
[2020-09-18] MEDS ORDERED: LORA-269 PO (11:28)
[2020-09-18] MEDS ORDERED: FOLI0.4T2 PO (11:28)
[2020-09-18] MEDS ORDERED: ALBU8.5H8 INH (11:28)
--- NOTE | 2020-09-18 13:49 | NUR ---
Pt discharged home in stable condition. wound care education given. follow up, and medication, instructions given to patient and daughter Stacie. dressing changed and IV removed prior discharge. Pt was escorted to main lobby on W/C . left the hospital via private vehicle accompanied by family member.
== END 2020-09-18 13:15 | disposition home or self-care (01) | DRG 252 ==
LOC: ER 11:51 → ED HOLD 14:27 → SUR 3N 16:23
PROVIDERS: ADMIT Family Medicine; ATTEND Family Medicine
PROC: BW211ZZ Computerized Tomography (CT Scan) of Abdomen and Pelvis using Low Osmolar Contrast (ICD-10-PCS; principal; 2020-09-15)
DX: K91.89 Other postprocedural complications and disorders of digestive system (principal); B18.2 Chronic viral hepatitis C; I10 Essential (primary) hypertension; C18.9 Malignant neoplasm of colon, unspecified; D64.9 Anemia, unspecified; Z20.822 Contact with and (suspected) exposure to COVID-19; E87.6 Hypokalemia; Z80.0 Family history of malignant neoplasm of digestive organs; Z80.3 Family history of malignant neoplasm of breast; Z82.49 Family history of ischemic heart disease and other diseases of the circulatory system; Z91.19 Patient's noncompliance with other medical treatment and regimen; Z87.891 Personal history of nicotine dependence; Z88.0 Allergy status to penicillin; Z88.8 Allergy status to other drugs, medicaments and biological substances; Z79.82 Long term (current) use of aspirin; Z79.899 Other long term (current) drug therapy
CPT/HCPCS: 36415; 74150; 74177; 80053; 82150; 82948; 83605; 83690; 83735; 84100; 84145; 85025; 85610; 87040; 87081; 87426; 94640; 94760; 97116; 97161; 97530; 99285; G0378; J2060; J2405; J7030; Q9963; Q9967

== ENCOUNTER 2021-03-10 10:23 | Inpatient (IN) | payer MEDICAID ==
[~2021-03-10] VITALS: Ht 157.5 cm; Wt 63.6 kg
[~2021-03-10 10:23] MED LIST changes: +ALBU8.5H17 INH; -ASPI-12 PO; -IBUP-1985 PO; +LORA-269 PO; +MULT-25 PO; +THIA50TA10 PO; +TRAM50TA2 PO
--- NOTE | 2021-03-10 12:29 | NUR ---
Patient not in lobby, attempted to contact patient at listed number with no answer. Patients voicemail was not set up. Dr. Vega aware.
[2021-03-10 12:46] LABS: BASOPHILS % (AUTO) 0.3 % (0-1); EOSINOPHILS % (AUTO) 0.2 % (0-6); HEMATOCRIT 35.5 % (35.0-45.0); HEMOGLOBIN 11.8 g/dl (12.0-16.0); LYMPHOCYTES # (AUTO) 0.9 X10'3 (1.1-4.8); LYMPHOCYTES % (AUTO) 6.3 % (21-51); MEAN CORPUSCULAR HEMOGLOBIN 29.9 PG (27.0-31.0); MEAN CORPUSCULAR HGB CONC 33.3 g/dL (33.0-36.5); MEAN CORPUSCULAR VOLUME 89.7 FL (78-98); MONOCYTES # (AUTO) 0.8 X10'3 (0-0.9); MONOCYTES % (AUTO) 5.5 % (2-12); NEUTROPHILS # (AUTO) 12.2 X10'3 (1.8-7.7); NEUTROPHILS % (AUTO) 87.7 % (42-75); PLATELET COUNT 156 X10'3 (140-440); RED BLOOD COUNT 3.96 X10'6 (4.20-5.60); RED CELL DISTRIBUTION WIDTH 16.1 % (11.5-14.5); WHITE BLOOD COUNT 13.9 X10'3 (4.5-11.0)
--- NOTE | 2021-03-10 12:59 | NUR ---
Patient hard of hearing, did not hear when called back to a room.
[2021-03-10 13:04] LABS: ALANINE AMINOTRANSFERASE 48 U/L (12-78); ALBUMIN 2.5 G/DL (3.4-5.0); ALBUMIN/GLOBULIN RATIO 0.6 (1.1-1.5); ALKALINE PHOSPHATASE 135 IU/L (46-116); ANION GAP 7 (8-16); ASPARTATE AMINO TRANSFERASE 72 U/L (10-37); BILIRUBIN,TOTAL 0.9 MG/DL (0.1-1.0); BLOOD UREA NITROGEN 17 MG/DL (7-18); BUN/CREATININE RATIO 23.3 (6.6-38.0); CALCIUM 8.4 MG/DL (8.5-10.1); CHLORIDE 103 MMOL/L (99-107); CREATININE 0.73 MG/DL (0.40-0.90); GLUCOSE 120 MG/DL (70-104); POTASSIUM 4.6 MMOL/L (3.5-5.1); SODIUM 138 MMOL/L (135-145); TOTAL CARBON DIOXIDE 27.9 MMOL/L (24-32); TOTAL PROTEIN 6.4 G/DL (6.4-8.2); eGFR 82 ML/MIN
[2021-03-10 13:55] LABS: CLARITY,URINE CLOUDY (Clear); COLOR,URINE YELLOW (Yellow); GLUCOSE, URINE NEGATIVE (Neg); KETONES,URINE NEGATIVE (Neg); LEUKOCYTE ESTERASE ,URINE NEGATIVE (Neg); NITRITES, URINE NEGATIVE (Neg); OCCULT BLOOD,URINE LARGE (Neg); PH,URINE 5.5 (4.8-8.0); PROTEIN,URINE 100 mg/dl (Neg)
[2021-03-10] MEDS ORDERED: levoFLOXACIN-Levaquin 750MG/D5 150 ML IV ONE (13:55)
[2021-03-10] MEDS ORDERED: metroNIDAZOLE-Flagyl 500mg/NS 100 ML IV ONE (13:55)
[2021-03-10 13:58] LABS: UA COLLECTION TYPE CLN CATCH MIDSTREAM
[2021-03-10 14:12] LABS: MUCUS STRANDS MANY /LPF (Neg)
--- NOTE | 2021-03-10 14:12 | NUR ---
ASSUMED CARE OF PT FROM FEDERICO RN, PT IS RESTING QUIETLY ON GURNEY IN DARK ROOM, WAITING TO BE EVALUATED BY HOSPITALIST
[2021-03-10 14:13] LABS: BACTERIA,URINE 2+ /HPF (Neg); SQUAMOUS EPITHELIAL CELL,UR MODERATE /LPF (FEW)
[2021-03-10] MEDS ORDERED: CLON-568 PO (14:31)
[2021-03-10] MEDS ORDERED: IBUP-1986 PO (14:31)
[2021-03-10] MEDS ORDERED: DIPH-735 PO (14:42)
[2021-03-10] MEDS ORDERED: ASCO-134 PO (14:42)
[2021-03-10] MEDS ORDERED: VITA-268 PO (14:42)
--- NOTE | 2021-03-10 14:48 | NUR ---
PT C/O RT LATERAL ABD PAIN, / WOULD LIKE TYLENOL OR NORCO
[2021-03-10] MEDS ORDERED: diphenhydrAMINE 25mg capsule PO PRN (14:55)
[2021-03-10] MEDS ORDERED: magnesium 4gm in 100ml NS 100 ML IV PRN (14:55)
[2021-03-10] MEDS ORDERED: potassium Cl 20 mEq SR tablet PO PRN ×2 (14:55)
[2021-03-10] MEDS ORDERED: ondansetron/PF 4mg/2ml inj IV PRN (14:55)
[2021-03-10] MEDS ORDERED: acetaminophen 325mg tablet PO PRN (14:55)
[2021-03-10] MEDS ORDERED: ipratropium/albuterol 3ml nebule NEB PRN ×2 (14:55)
[2021-03-10] MEDS ORDERED: potassium Cl 40MEQ/1/2NS 520ml 520 ML IV PRN ×2 (14:55)
[2021-03-10] MEDS ORDERED: magnesium 2GM in 50ml NS 50 ML IV PRN (14:55)
[2021-03-10] MEDS ORDERED: magnesium Cl slow-release 64mg tablet PO PRN (14:55)
[2021-03-10] MEDS: normal saline 1000ml 1,000 ML IV SCH (18:36)
[2021-03-10] MEDS: morphine 2 MG/ML inj. syringe IV PRN ×2 (18:40→22:17)
[2021-03-10] MEDS: K and/or MAG REPLACEMENT MC SCH (20:00)
[2021-03-11] MEDS: metroNIDAZOLE-Flagyl 500mg/NS 100 ML IV SCH ×3 (00:05→17:48)
[2021-03-11] MEDS: normal saline 1000ml 1,000 ML IV SCH ×3 (01:25→22:39)
[2021-03-11] MEDS: morphine 2 MG/ML inj. syringe IV PRN ×2 (02:55→17:49)
[2021-03-11 04:23] LABS: BASOPHILS % (AUTO) 0.2 % (0-1); EOSINOPHILS % (AUTO) 0.2 % (0-6); HEMATOCRIT 33.4 % (35.0-45.0); HEMOGLOBIN 11.1 g/dl (12.0-16.0); LYMPHOCYTES # (AUTO) 0.8 X10'3 (1.1-4.8); LYMPHOCYTES % (AUTO) 5.8 % (21-51); MEAN CORPUSCULAR HEMOGLOBIN 30.1 PG (27.0-31.0); MEAN CORPUSCULAR HGB CONC 33.3 g/dL (33.0-36.5); MEAN CORPUSCULAR VOLUME 90.4 FL (78-98); MONOCYTES # (AUTO) 0.9 X10'3 (0-0.9); MONOCYTES % (AUTO) 6.6 % (2-12); NEUTROPHILS # (AUTO) 11.7 X10'3 (1.8-7.7); NEUTROPHILS % (AUTO) 87.2 % (42-75); PLATELET COUNT 134 X10'3 (140-440); RED BLOOD COUNT 3.69 X10'6 (4.20-5.60); RED CELL DISTRIBUTION WIDTH 15.6 % (11.5-14.5); WHITE BLOOD COUNT 13.4 X10'3 (4.5-11.0)
[2021-03-11 04:25] LABS: ALBUMIN 2.1 G/DL (3.4-5.0); ANION GAP 9 (8-16); BLOOD UREA NITROGEN 17 MG/DL (7-18); BUN/CREATININE RATIO 23.3 (6.6-38.0); CHLORIDE 103 MMOL/L (99-107); CREATININE 0.73 MG/DL (0.40-0.90); GLUCOSE 93 MG/DL (70-104); MAGNESIUM 1.5 MG/DL (1.5-2.4); POTASSIUM 4.6 MMOL/L (3.5-5.1); SODIUM 138 MMOL/L (135-145); TOTAL CARBON DIOXIDE 26.1 MMOL/L (24-32); eGFR 82 ML/MIN
[2021-03-11 05:30] VITALS: BP 117/69
--- NOTE | 2021-03-11 06:24 | NUR ---
Problems reprioritized. Patient report given, questions answered & plan of care reviewed with ORLANDO MUNSON.
[2021-03-11 07:00] VITALS: BP 104/65
[2021-03-11] MEDS: K and/or MAG REPLACEMENT MC SCH ×2 (08:56→20:00)
[2021-03-11 11:00] VITALS: BP 121/69
[2021-03-11 15:00] VITALS: BP 137/87
--- NOTE | 2021-03-11 15:00 | NUR ---
Paged Dr. Hobbs regarding past colonoscopy and asking for diet order. MD call right back. new order CLD.
[2021-03-11 18:00] VITALS: BP_SYST 123; BP_SYST 131; BP_DIAS 76; BP_DIAS 91
--- NOTE | 2021-03-11 19:00 | NUR ---
Problems reprioritized. Patient report given, questions answered & plan of care reviewed with Jennifer MUNSON.
--- NOTE | 2021-03-11 20:00 | NUR ---
Pt. awake A & O to place, time , and events. Pt. denies c/o nausea or vomiting at this time. No c/o pain at this time. Encouraged pt. to use IS; pt. verbalized understanding. Bed in low position and call light within reach. Addendum: 03/12/21 at [address] RN Amended: Links added.
[2021-03-11 22:00] VITALS: BP 123/76
[2021-03-12] MEDS: metroNIDAZOLE-Flagyl 500mg/NS 100 ML IV SCH ×3 (00:04→16:07)
[2021-03-12 02:00] VITALS: BP 129/75
[2021-03-12 06:00] VITALS: BP 147/93
--- NOTE | 2021-03-12 06:00 | NUR ---
Problems reprioritized. Patient report given, questions answered & plan of care reviewed with Katie MUNSON. Addendum: 03/12/21 [address] RN Amended: Links added.
--- NOTE | 2021-03-12 06:31 | NUR ---
Patient in room PCU 3014. I have received report from Jennifer MUNSON and had the opportunity to ask questions and assume patient care.
[2021-03-12] MEDS: normal saline 1000ml 1,000 ML IV SCH ×3 (06:55→16:54)
[2021-03-12] MEDS: K and/or MAG REPLACEMENT MC SCH ×2 (08:00→20:00)
[2021-03-12 08:24] LABS: EOSINOPHILS % (AUTO) 0.2 % (0-6); HEMOGLOBIN 10.9 g/dl (12.0-16.0); LYMPHOCYTES # (AUTO) 0.6 X10'3 (1.1-4.8); MEAN CORPUSCULAR HEMOGLOBIN 29.7 PG (27.0-31.0); MONOCYTES # (AUTO) 0.7 X10'3 (0-0.9)
[2021-03-12 08:27] LABS: ALBUMIN 2.1 G/DL (3.4-5.0); ANION GAP 9 (8-16); BASOPHILS % (AUTO) 0.1 % (0-1); BLOOD UREA NITROGEN 19 MG/DL (7-18); BUN/CREATININE RATIO 31.7 (6.6-38.0); CALCIUM 7.8 MG/DL (8.5-10.1); CHLORIDE 106 MMOL/L (99-107); GLUCOSE 109 MG/DL (70-104); HEMATOCRIT 32.6 % (35.0-45.0); LYMPHOCYTES % (AUTO) 4.7 % (21-51); MEAN CORPUSCULAR HGB CONC 33.6 g/dL (33.0-36.5); MEAN CORPUSCULAR VOLUME 88.5 FL (78-98); MEAN PLATELET VOLUME 6.8 FL (7.4-10.4); MONOCYTES % (AUTO) 5.6 % (2-12); NEUTROPHILS # (AUTO) 10.8 X10'3 (1.8-7.7); NEUTROPHILS % (AUTO) 89.4 % (42-75); PLATELET COUNT 143 X10'3 (140-440); POTASSIUM 4.1 MMOL/L (3.5-5.1); RED BLOOD COUNT 3.68 X10'6 (4.20-5.60); RED CELL DISTRIBUTION WIDTH 15.9 % (11.5-14.5); SODIUM 139 MMOL/L (135-145); TOTAL CARBON DIOXIDE 24.4 MMOL/L (24-32); WHITE BLOOD COUNT 12.1 X10'3 (4.5-11.0); eGFR > 90 ML/MIN
[2021-03-12 11:00] VITALS: BP 134/72
[2021-03-12 14:49] VITALS: BP 146/88
[2021-03-12] MEDS: ipratropium/albuterol 3ml nebule NEB SCH ×2 (14:53→19:00)
--- NOTE | 2021-03-12 16:33 | NUR ---
PAGER ID: [phone] MESSAGE: Katie Tele- RE: [id number] Jose- Patient would like Imodium. She had multiple loose stools.
[2021-03-12] MEDS ORDERED: loperamide 2mg capsule PO PRN (16:45)
[2021-03-12 18:00] VITALS: BP 128/71
--- NOTE | 2021-03-12 18:21 | NUR ---
Problems reprioritized. Patient report given, questions answered & plan of care reviewed with Irma MUNSON.
--- NOTE | 2021-03-12 18:30 | NUR ---
Patient in room PCU 3014. I have received report from Katie MUNSON and had the opportunity to ask questions and assume patient care.
[2021-03-12] MEDS: methylPREDNISolone sod succ/PF 40mg inj. IV SCH (20:54)
[2021-03-12 22:30] VITALS: BP 132/79
--- NOTE | 2021-03-12 22:30 | NUR ---
Patient states that she has pain, but will not take anything for it.
[2021-03-13] MEDS: ipratropium/albuterol 3ml nebule NEB SCH ×4 (00:03→11:13)
[2021-03-13] MEDS: metroNIDAZOLE-Flagyl 500mg/NS 100 ML IV SCH ×2 (00:19→08:11)
[2021-03-13 03:00] VITALS: BP 118/77
[2021-03-13 06:00] VITALS: BP 151/70
--- NOTE | 2021-03-13 06:33 | NUR ---
Problems reprioritized. Patient report given, questions answered & plan of care reviewed with Mary MUNSON. Patient did not take any pain medication during material handler 2nd shift.
--- NOTE | 2021-03-13 06:51 | NUR ---
Patient in room PCU 3014. I have received report from JEIMY Rangel and had the opportunity to ask questions and assume patient care.
[2021-03-13] MEDS ORDERED: pantoprazole 40mg Tablet.DR PO SCH (07:30)
[2021-03-13] MEDS: K and/or MAG REPLACEMENT MC SCH (08:00)
[2021-03-13 08:12] LABS: ALBUMIN 1.9 G/DL (3.4-5.0); ANION GAP 9 (8-16); BLOOD UREA NITROGEN 20 MG/DL (7-18); BUN/CREATININE RATIO 28.6 (6.6-38.0); CALCIUM 7.8 MG/DL (8.5-10.1); CHLORIDE 109 MMOL/L (99-107); GLUCOSE 178 MG/DL (70-104); MAGNESIUM 1.9 MG/DL (1.5-2.4); SODIUM 141 MMOL/L (135-145); TOTAL CARBON DIOXIDE 23.3 MMOL/L (24-32); eGFR 87 ML/MIN
[2021-03-13] MEDS: morphine 2 MG/ML inj. syringe IV PRN (08:12)
[2021-03-13] MEDS: methylPREDNISolone sod succ/PF 40mg inj. IV SCH (08:12)
[2021-03-13 08:31] LABS: BASOPHILS % (AUTO) 0.2 % (0-1); EOSINOPHILS % (AUTO) 0 % (0-6); HEMATOCRIT 29.5 % (35.0-45.0); LYMPHOCYTES # (AUTO) 0.3 X10'3 (1.1-4.8); LYMPHOCYTES % (AUTO) 4.3 % (21-51); MEAN CORPUSCULAR HEMOGLOBIN 30.3 PG (27.0-31.0); MEAN CORPUSCULAR VOLUME 89.1 FL (78-98); MEAN PLATELET VOLUME 7.4 FL (7.4-10.4); MONOCYTES # (AUTO) 0.2 X10'3 (0-0.9); MONOCYTES % (AUTO) 2.4 % (2-12); NEUTROPHILS # (AUTO) 6.5 X10'3 (1.8-7.7); NEUTROPHILS % (AUTO) 93.1 % (42-75); PLATELET COUNT 119 X10'3 (140-440); RED BLOOD COUNT 3.31 X10'6 (4.20-5.60)
[2021-03-13 09:31] LABS: TOTAL CELLS COUNTED 100
[2021-03-13 09:33] LABS: PLATELET ESTIMATE DECREASED; TEAR DROP CELLS 1+
--- NOTE | 2021-03-13 10:26 | NUR ---
Paged Dr Vargas re: pt diet concerns: PAGER ID: [phone] MESSAGE: Vic Garcia [id number] pt unhappy with CL diet status states she wants food or she will leave. Can we advance her diet to full liquid and then regular or would you like to continue CL? Mary [phone] Addendum: 03/13/21 at 1036 by Mary Short RN Incorrect paged ID for Dr. Vargas. Message resent to correct pager number: PAGER ID: [phone] MESSAGE: Vic Garcia unhappy with CL diet states she wants food or she will leave. Can we advance her diet to full liquid and then regular or would you like to continue CL? Mary [phone]
[2021-03-13] MEDS ORDERED: METO5TAB85 PO (13:13)
[2021-03-13] MEDS ORDERED: METR500T PO (13:33)
[2021-03-13] MEDS ORDERED: LEVO500T89 PO (13:33)
--- NOTE | 2021-03-13 13:55 | NUR ---
Patient stable for d/c per MD orders. PIV removed intact. Telemetry equipment removed and returned to telemetry office. All instructions reviewed with patient, who was given the opportunity to ask questions. All questions answered and patient expressed good understanding of instructions. Patient wheeled to the front of the building via w/c, where she entered a private vehicle, departing with her son as otr driver.
== END 2021-03-13 13:55 | disposition home or self-care (01) | DRG 140 ==
LOC: ER 10:23 → ED HOLD 14:59 → PCU 3S 03-11 05:30
PROVIDERS: ADMIT Internal Medicine; ATTEND Internal Medicine
DX: J44.1 Chronic obstructive pulmonary disease with (acute) exacerbation (principal); J69.0 Pneumonitis due to inhalation of food and vomit; B19.20 Unspecified viral hepatitis C without hepatic coma; F15.90 Other stimulant use, unspecified, uncomplicated; Z20.822 Contact with and (suspected) exposure to COVID-19; N39.0 Urinary tract infection, site not specified; Z72.0 Tobacco use; Z80.3 Family history of malignant neoplasm of breast; Z85.048 Personal history of other malignant neoplasm of rectum, rectosigmoid junction, and anus; Z88.0 Allergy status to penicillin; Z88.5 Allergy status to narcotic agent; Z80.0 Family history of malignant neoplasm of digestive organs; Z82.49 Family history of ischemic heart disease and other diseases of the circulatory system
CPT/HCPCS: 36415; 71045; 74176; 80048; 80053; 81001; 83735; 84145; 85007; 85025; 87040; 87081; 87088; 87635; 94640; 94760; 99285; G0378; J1956; J2270; J2405; J2920; J3490; J7030

== ENCOUNTER 2022-12-26 18:19 | Inpatient (IN) | payer MEDICAID ==
[~2022-12-26] VITALS: Ht 157.5 cm; Wt 70.4 kg
[~2022-12-26 18:19] MED LIST changes: -ACET-76 PO; -ALBU8.5H17 INH; +ASCO-134 PO; +CLON-568 PO; +DIPH-735 PO; -LORA-269 PO; +METO5TAB85 PO; -MULT-25 PO; -THIA50TA10 PO; -TRAM50TA2 PO; +VITA-268 PO
[2022-12-26 19:27] LABS: BASOPHILS % (AUTO) 0.3 % (0-1); EOSINOPHILS # (AUTO) 0.1 X10'3 (0-0.9); EOSINOPHILS % (AUTO) 3.2 % (0-6); LYMPHOCYTES # (AUTO) 0.8 X10'3 (1.1-4.8); LYMPHOCYTES % (AUTO) 21.9 % (21-51); MEAN CORPUSCULAR HEMOGLOBIN 28.9 PG (27.0-31.0); MEAN CORPUSCULAR VOLUME 90.3 FL (78-98); MEAN PLATELET VOLUME 7.1 FL (7.4-10.4); MONOCYTES # (AUTO) 0.2 X10'3 (0-0.9); MONOCYTES % (AUTO) 4.7 % (2-12); NEUTROPHILS # (AUTO) 2.4 X10'3 (1.8-7.7); NEUTROPHILS % (AUTO) 69.9 % (42-75); PLATELET COUNT 180 X10'3 (140-440); RED CELL DISTRIBUTION WIDTH 15.6 % (11.5-14.5); WHITE BLOOD COUNT 3.5 X10'3 (4.5-11.0)
[2022-12-26 19:34] LABS: ALANINE AMINOTRANSFERASE 26 U/L (12-78); ALBUMIN 2.7 G/DL (3.4-5.0); ALBUMIN/GLOBULIN RATIO 0.8 (1.1-1.5); ALKALINE PHOSPHATASE 159 IU/L (46-116); ANION GAP 6 (8-16); ASPARTATE AMINO TRANSFERASE 46 U/L (10-37); BILIRUBIN,TOTAL 0.5 MG/DL (0.1-1.0); BLOOD UREA NITROGEN 40 MG/DL (7-18); BUN/CREATININE RATIO 27.2 (10.0-20.0); CALCIUM 8.4 MG/DL (8.5-10.1); CHLORIDE 107 MMOL/L (99-107); CREATININE 1.47 MG/DL (0.40-0.90); GLUCOSE 91 MG/DL (70-104); SODIUM 138 MMOL/L (135-145); TOTAL PROTEIN 6.2 G/DL (6.4-8.2); eGFR 37 ML/MIN
[2022-12-26] MEDS ORDERED: dextrose 50%-water 50ml dispensing syringe IV ONE (22:25)
[2022-12-26] MEDS ORDERED: furosemide 10 MG/1 ML 10ml inj IV ONE (22:25)
[2022-12-26] MEDS ORDERED: sodium bicarbonate (8.4%) inj. 50 MEQ in dextrose 5%-water 1,000 ML IV SCH (22:25)
[2022-12-26] MEDS ORDERED: insulin regular, human 10 units/0.1 ml syringe IV ONE (22:25)
[2022-12-27] MEDS ORDERED: sodium bicarbonate (8.4%) 1 mEq/ml syringe IV STA (00:02)
--- NOTE | 2022-12-27 00:05 | NUR ---
BEDSIDE CAMODE PLACED IN ROOM. PT EDUCATION GIVEN MECHANICAL ENGINEER LIGHT
[2022-12-27] MEDS ORDERED: acetaminophen 325mg tablet PO PRN (02:15)
[2022-12-27] MEDS ORDERED: ondansetron/PF 4mg/2ml inj IV PRN (02:15)
[2022-12-27] MEDS ORDERED: mag hydrox/Alum hydrox/simeth 30ml oral suspension PO PRN (02:15)
[2022-12-27] MEDS ORDERED: magnesium hydroxide 30ml (MOM) UD suspension PO PRN (02:15)
[2022-12-27] MEDS ORDERED: PERFLUTREN PROTEIN-A MICROSPHR (Optison) 0.22 MG/ML 3ML VIAL IV ONE (02:15)
[2022-12-27] MEDS ORDERED: acetaZOLAMIDE 250mg tablet PO ONE (02:20)
[2022-12-27 02:23] LABS: ALBUMIN 2.3 G/DL (3.4-5.0); ANION GAP 7 (8-16); BLOOD UREA NITROGEN 38 MG/DL (7-18); BUN/CREATININE RATIO 30.4 (10.0-20.0); CALCIUM 8.2 MG/DL (8.5-10.1); CHLORIDE 108 MMOL/L (99-107); CREATININE 1.25 MG/DL (0.40-0.90); GLUCOSE 83 MG/DL (70-104); POTASSIUM 5.1 MMOL/L (3.5-5.1); SODIUM 139 MMOL/L (135-145); TOTAL CARBON DIOXIDE 24.5 MMOL/L (24-32); eGFR 44 ML/MIN
[2022-12-27] MEDS ORDERED: acetaZOLAMIDE 500mg capsule.SA PO ONE (03:15)
[2022-12-27] MEDS ORDERED: FEXO-271 PO (03:23)
[2022-12-27] MEDS ORDERED: FURO-150 PO (03:23)
[2022-12-27] MEDS ORDERED: OXYC-658 PO (03:23)
[2022-12-27] MEDS ORDERED: HYDR-3973 PO (03:23)
[2022-12-27] MEDS ORDERED: PANT40TA54 PO (03:23)
[2022-12-27] MEDS ORDERED: ATEN-169 PO (03:23)
[2022-12-27] MEDS ORDERED: LOPE2CAP PO (03:23)
[2022-12-27] MEDS ORDERED: SPIR50TA5 PO (03:23)
[2022-12-27] MEDS ORDERED: CETI5TAB27 PO (03:23)
--- NOTE | 2022-12-27 04:05 | NUR ---
PT HAS FRIEND AT BEDSIDE
[2022-12-27] MEDS ORDERED: ATEN-27 PO (04:38)
--- NOTE | 2022-12-27 06:45 | NUR ---
Patient in room ED 11. I have received report from Summer RN and had the opportunity to ask questions and assume patient care.
--- NOTE | 2022-12-27 06:48 | NUR ---
RN CALLED DIETARY AND REQ PT BREAKFAST TRAY BE SENT TO 3361D.
[2022-12-27 07:15] VITALS: BP 128/73
[2022-12-27] MEDS: heparin, porcine 5000 units/ml vial SQ SCH ×2 (07:55→20:37)
[2022-12-27] MEDS: docusate sod 100mg capsule PO SCH ×2 (08:00→20:36)
[2022-12-27] MEDS ORDERED: furosemide 10 MG/1 ML 10ml inj IV SCH (08:00)
--- NOTE | 2022-12-27 09:09 | NUR ---
Pt's K value has been coming down after interventions. I talked to Dr San and he said to hold the sodium bicarb for now and we will check K value this afternoon since K value is back in regular ranges.
[2022-12-27 11:00] VITALS: BP 93/53
[2022-12-27] MEDS ORDERED: oxyCODONE IR 5mg (immed. release) tablet PO PRN (13:15)
[2022-12-27] MEDS ORDERED: clonazePAM 1mg tablet PO PRN (13:15)
[2022-12-27] MEDS ORDERED: loperamide 2mg capsule PO PRN (13:15)
--- NOTE | 2022-12-27 14:08 | NUR ---
Patient in room PCU 3014. I have received report from Gregory MUNSON and had the opportunity to ask questions and assume patient care.
--- NOTE | 2022-12-27 14:10 | NUR ---
Noted pt with a low BMI of 10.0 using wt of 24.79 kg which is not scaled. Most recent scaled wt hx in EMR is 63.64 kg 02/02/20 and 03/10/21. Current documented likely not accurate. Pending completion of malnutrition risk screen with RN and documentation of PO intake on renal diet. Pt with no documented decrease in muscle strength though with BLE 2+ mild edema. Attempted TC with RN to get clarification regarding patient's weight however unable to reach at this time. Recommendation for obtaining a scaled wt placed in EMR. Will continue to follow and monitor s/s of malnutrition. Addendum: 12/27/22 at [address] Amended: Links added.
[2022-12-27 15:00] VITALS: BP 101/57
[2022-12-27 15:30] LABS: ALANINE AMINOTRANSFERASE 25 U/L (12-78); ALBUMIN 2.2 G/DL (3.4-5.0); ALBUMIN/GLOBULIN RATIO 0.7 (1.1-1.5); ALKALINE PHOSPHATASE 134 IU/L (46-116); ANION GAP 3 (8-16); ASPARTATE AMINO TRANSFERASE 42 U/L (10-37); BILIRUBIN,TOTAL 0.4 MG/DL (0.1-1.0); CALCIUM 7.8 MG/DL (8.5-10.1); CHLORIDE 105 MMOL/L (99-107); CREATININE 1.18 MG/DL (0.40-0.90); GLUCOSE 120 MG/DL (70-104); POTASSIUM 5.1 MMOL/L (3.5-5.1); SODIUM 137 MMOL/L (135-145); TOTAL CARBON DIOXIDE 28.6 MMOL/L (24-32); TOTAL PROTEIN 5.2 G/DL (6.4-8.2); eGFR 47 ML/MIN
[2022-12-27 15:35] LABS: BLOOD UREA NITROGEN 36 MG/DL (7-18); BUN/CREATININE RATIO 30.5 (10.0-20.0)
[2022-12-27] MEDS: oxyCODONE IR 5mg (immed. release) tablet PO PRN (15:56)
--- NOTE | 2022-12-27 16:31 | NUR ---
PAGER ID: [phone] MESSAGE: [id number] Jose Geronimo came back at 5.1. Sodium Bicarb is still being held. Do you want any changes. Thank You Lashay KRISHNAN [phone]
--- NOTE | 2022-12-27 16:31 | NUR ---
Spoke with Dr. San gave order to DC hleen.
--- NOTE | 2022-12-27 17:16 | NUR ---
[place] documentation: I have reviewed and agree with all interventions, assessments performed and documented by Roula KRISHNAN. [place] Medication Administration: For this medication-pass time frame, all medication were reviewed, dispensed, administered and documented per hospital policy by Roula KRISHNAN.
--- NOTE | 2022-12-27 17:55 | NUR ---
DRIP MOLDER documentation: I have reviewed and agree with all interventions, assessments performed and documented by STEPHANE OAKES LVN.
[2022-12-27 18:00] VITALS: BP 149/68
--- NOTE | 2022-12-27 18:20 | NUR ---
Patient in room PCU 3014. I have received report from ARIELLA Metz and ARIELLA Celeste and had the opportunity to ask questions and assume patient care.
--- NOTE | 2022-12-27 18:47 | NUR ---
Problems reprioritized. Patient report given, questions answered & plan of care reviewed with Amarilis MUNSON.
[2022-12-27] MEDS ORDERED: furosemide 20MG tablet PO SCH (20:00)
[2022-12-27] MEDS: furosemide 20 MG/2 ML vial IV SCH (20:37)
[2022-12-27] MEDS ORDERED: non-formulary drug (Cetirizine HCl 1 TAB) PO SCH (21:00)
[2022-12-27 22:00] VITALS: BP 124/77
[2022-12-28] MEDS: oxyCODONE IR 5mg (immed. release) tablet PO PRN (00:19)
[2022-12-28 02:00] VITALS: BP 113/64
[2022-12-28 06:00] VITALS: BP 104/69
--- NOTE | 2022-12-28 06:33 | NUR ---
Problems reprioritized. Patient report given, questions answered & plan of care reviewed with ARIELLA Dsouza.
--- NOTE | 2022-12-28 06:53 | NUR ---
Patient in room PCU 3014. I have received report from JEIMY Olmos and had the opportunity to ask questions and assume patient care.
[2022-12-28 07:19] LABS: BASOPHILS % (AUTO) 0.4 % (0-1); EOSINOPHILS # (AUTO) 0.1 X10'3 (0-0.9); EOSINOPHILS % (AUTO) 2.4 % (0-6); HEMATOCRIT 28.7 % (35.0-45.0); HEMOGLOBIN 9.5 g/dl (12.0-16.0); LYMPHOCYTES # (AUTO) 0.8 X10'3 (1.1-4.8); LYMPHOCYTES % (AUTO) 21.1 % (21-51); MEAN CORPUSCULAR HEMOGLOBIN 29.5 PG (27.0-31.0); MEAN CORPUSCULAR VOLUME 89.3 FL (78-98); MEAN PLATELET VOLUME 7.1 FL (7.4-10.4); MONOCYTES # (AUTO) 0.2 X10'3 (0-0.9); MONOCYTES % (AUTO) 4.5 % (2-12); NEUTROPHILS # (AUTO) 2.9 X10'3 (1.8-7.7); NEUTROPHILS % (AUTO) 71.6 % (42-75); PLATELET COUNT 170 X10'3 (140-440); RED BLOOD COUNT 3.21 X10'6 (4.20-5.60); RED CELL DISTRIBUTION WIDTH 15.3 % (11.5-14.5)
[2022-12-28 07:23] LABS: ALANINE AMINOTRANSFERASE 25 U/L (12-78); ALBUMIN 2.3 G/DL (3.4-5.0); ALBUMIN/GLOBULIN RATIO 0.7 (1.1-1.5); ALKALINE PHOSPHATASE 126 IU/L (46-116); ANION GAP 5 (8-16); ASPARTATE AMINO TRANSFERASE 52 U/L (10-37); BILIRUBIN,TOTAL 0.5 MG/DL (0.1-1.0); BLOOD UREA NITROGEN 37 MG/DL (7-18); BUN/CREATININE RATIO 34.6 (10.0-20.0); CALCIUM 8.4 MG/DL (8.5-10.1); CHLORIDE 104 MMOL/L (99-107); CREATININE 1.07 MG/DL (0.40-0.90); GLUCOSE 91 MG/DL (70-104); POTASSIUM 5.6 MMOL/L (3.5-5.1); SODIUM 136 MMOL/L (135-145); TOTAL PROTEIN 5.5 G/DL (6.4-8.2); eGFR 53 ML/MIN
[2022-12-28] MEDS: docusate sod 100mg capsule PO SCH (07:40)
[2022-12-28] MEDS: heparin, porcine 5000 units/ml vial SQ SCH (07:48)
[2022-12-28] MEDS: furosemide 20 MG/2 ML vial IV SCH (07:50)
[2022-12-28] MEDS ORDERED: vitamin B comp w/Vit. C tab 1 TAB TABLET PO SCH (08:00)
[2022-12-28] MEDS ORDERED: pantoprazole 40mg Tablet.DR PO SCH (08:00)
[2022-12-28] MEDS ORDERED: loratadine 10mg tablet PO SCH (08:00)
[2022-12-28] MEDS ORDERED: ascorbic acid 500mg tablet PO SCH (08:00)
[2022-12-28] MEDS ORDERED: atenolol 25mg tablet PO SCH (08:00)
[2022-12-28] MEDS ORDERED: furosemide 10 MG/1 ML 10ml inj IV ONE (08:05)
[2022-12-28] MEDS ORDERED: oxyCODONE IR 5mg (immed. release) tablet PO PRN ×2 (10:00→14:30)
[2022-12-28 11:00] VITALS: BP 117/60
--- NOTE | 2022-12-28 14:23 | NUR ---
PAGER ID: [phone] MESSAGE: Steven Garcia [id number]. Patient woke complaining of 10/10 pain. Can smaller Oxy dose frequency be increased? Thank you, Lianna [phone]
[2022-12-28 15:00] VITALS: BP 113/68
[2022-12-28 15:39] LABS: ALBUMIN 2.2 G/DL (3.4-5.0); ANION GAP 2 (8-16); BLOOD UREA NITROGEN 35 MG/DL (7-18); BUN/CREATININE RATIO 28.5 (10.0-20.0); CALCIUM 8.2 MG/DL (8.5-10.1); CHLORIDE 104 MMOL/L (99-107); CREATININE 1.23 MG/DL (0.40-0.90); SODIUM 135 MMOL/L (135-145); TOTAL CARBON DIOXIDE 29.1 MMOL/L (24-32); eGFR 45 ML/MIN
[2022-12-28 15:41] LABS: GLUCOSE 122 MG/DL (70-104)
--- NOTE | 2022-12-28 18:24 | NUR ---
Problems reprioritized. Patient report given, questions answered & plan of care reviewed with JEIMY Guthrie.
--- NOTE | 2022-12-28 18:28 | NUR ---
Patient in room PCU 3014. I have received report from RYDER KRISHNAN and had the opportunity to ask questions and assume patient care.
== END 2022-12-28 19:00 | disposition home health service (06) | DRG 425 ==
LOC: ER 18:20 → ED HOLD 12-27 02:18 → PCU 3S 12-27 07:05
PROVIDERS: ADMIT Internal Medicine; ATTEND Family Medicine
DX: E87.5 Hyperkalemia (principal); N17.0 Acute kidney failure with tubular necrosis; B18.2 Chronic viral hepatitis C; C18.9 Malignant neoplasm of colon, unspecified; K74.60 Unspecified cirrhosis of liver; F17.200 Nicotine dependence, unspecified, uncomplicated; J44.9 Chronic obstructive pulmonary disease, unspecified; I08.3 Combined rheumatic disorders of mitral, aortic and tricuspid valves; I27.20 Pulmonary hypertension, unspecified; R60.1 Generalized edema; I12.9 Hypertensive chronic kidney disease with stage 1 through stage 4 chronic kidney disease, or unspecified chronic kidney disease; T50.0X5A Adverse effect of mineralocorticoids and their antagonists, initial encounter; N18.9 Chronic kidney disease, unspecified; Z79.899 Other long term (current) drug therapy; Z80.0 Family history of malignant neoplasm of digestive organs; Z80.3 Family history of malignant neoplasm of breast; Z82.49 Family history of ischemic heart disease and other diseases of the circulatory system; Z88.0 Allergy status to penicillin; Z92.21 Personal history of antineoplastic chemotherapy; Z88.5 Allergy status to narcotic agent; Y92.89 Other specified places as the place of occurrence of the external cause
CPT/HCPCS: 36415; 71045; 80048; 80053; 82948; 83880; 84484; 85025; 85610; 93005; 93306; 93970; 99285; G0378; J1644; J1815; J1940; J3490

== ENCOUNTER 2023-01-09 13:03 | Emergency (ER) | payer MEDICAID ==
[~2023-01-09] VITALS: Ht 162.6 cm; Wt 54.5 kg
[~2023-01-09 13:03] MED LIST changes: +ATEN-27 PO; +CETI5TAB27 PO; -DIPH-735 PO; +FEXO-271 PO; +FURO-150 PO; +HYDR-3973 PO; +LOPE2CAP PO; -METO5TAB85 PO; +OXYC-658 PO; +PANT40TA54 PO
[2023-01-09] MEDS ORDERED: fentaNYL/PF 50MCG/1 ML 2ML syringe IV ONE (13:10)
[2023-01-09] MEDS ORDERED: normal saline 1000ML IV soln IVB ONE (13:10)
[2023-01-09] MEDS ORDERED: ondansetron/PF 4mg/2ml inj IV ONE (13:10)
[2023-01-09 14:02] LABS: BASOPHILS % (AUTO) 0.4 % (0-1); EOSINOPHILS # (AUTO) 0.1 X10'3 (0-0.9); EOSINOPHILS % (AUTO) 1.8 % (0-6); HEMATOCRIT 28.7 % (35.0-45.0); LYMPHOCYTES # (AUTO) 0.6 X10'3 (1.1-4.8); LYMPHOCYTES % (AUTO) 17.5 % (21-51); MEAN CORPUSCULAR HEMOGLOBIN 27.8 PG (27.0-31.0); MEAN CORPUSCULAR HGB CONC 31.3 g/dL (33.0-36.5); MEAN CORPUSCULAR VOLUME 88.9 FL (78-98); MEAN PLATELET VOLUME 7.3 FL (7.4-10.4); MONOCYTES # (AUTO) 0.2 X10'3 (0-0.9); MONOCYTES % (AUTO) 5.9 % (2-12); NEUTROPHILS # (AUTO) 2.6 X10'3 (1.8-7.7); NEUTROPHILS % (AUTO) 74.4 % (42-75); PLATELET COUNT 114 X10'3 (140-440); RED BLOOD COUNT 3.23 X10'6 (4.20-5.60); WHITE BLOOD COUNT 3.5 X10'3 (4.5-11.0)
[2023-01-09 14:32] LABS: ALANINE AMINOTRANSFERASE 52 U/L (12-78); ALBUMIN 2.3 G/DL (3.4-5.0); ALBUMIN/GLOBULIN RATIO 0.7 (1.1-1.5); ALKALINE PHOSPHATASE 161 IU/L (46-116); ANION GAP 9 (8-16); ASPARTATE AMINO TRANSFERASE 96 U/L (10-37); BILIRUBIN,TOTAL 0.8 MG/DL (0.1-1.0); BLOOD UREA NITROGEN 33 MG/DL (7-18); BUN/CREATININE RATIO 34.7 (10.0-20.0); CALCIUM 8.1 MG/DL (8.5-10.1); CHLORIDE 108 MMOL/L (99-107); CREATININE 0.95 MG/DL (0.40-0.90); GLUCOSE 97 MG/DL (70-104); LIPASE 89 U/L (73-393); POTASSIUM 4.6 MMOL/L (3.5-5.1); SODIUM 140 MMOL/L (135-145); TOTAL PROTEIN 5.6 G/DL (6.4-8.2); eGFR 61 ML/MIN
[2023-01-09] MEDS ORDERED: traMADol 50MG tablet PO ONE (15:25)
[2023-01-09] MEDS ORDERED: POTA-192 PO (15:28)
[2023-01-09] MEDS ORDERED: SPIR50TA PO (15:28)
[2023-01-09] MEDS ORDERED: TRAM50TA2 PO (15:28)
[2023-01-09 15:40] VITALS: BP 137/82
== END 2023-01-09 16:33 | disposition home or self-care (01) ==
LOC: ER 13:03
DX: R18.8 Other ascites (principal); C18.9 Malignant neoplasm of colon, unspecified; K74.60 Unspecified cirrhosis of liver; Z88.0 Allergy status to penicillin; Z88.5 Allergy status to narcotic agent
CPT/HCPCS: 36415; 71045; 74176; 80053; 83690; 85025; 96361; 96374; 96375; 99285; J2405; J3010; J7030; J7040

== ENCOUNTER 2023-02-08 06:04 | Day surgery (SDC) | payer MEDICAID ==
[~2023-02-08] VITALS: Ht 162.6 cm; Wt 58.3 kg
[~2023-02-08 06:04] MED LIST changes: +POTA-192 PO; +SPIR50TA PO; +TRAM50TA2 PO
[2023-02-08 06:17] VITALS: BP 151/68
[2023-02-08] MEDS ORDERED: albumin 25% 100mL bottle x 1 IV PRN (06:20)
[2023-02-08] MEDS ORDERED: OMEP20CA16 PO (06:38)
[2023-02-08] MEDS ORDERED: SPIR50TA5 PO (06:38)
[2023-02-08] MEDS ORDERED: ONDA-104 PO (06:38)
[2023-02-08] MEDS ORDERED: POTA-206 PO (06:38)
[2023-02-08] MEDS ORDERED: ALBU8HFA PO (06:38)
[2023-02-08] MEDS ORDERED: OXYC15TA PO (06:38)
[2023-02-08 08:45] VITALS: BP 107/60
== END 2023-02-08 09:00 | disposition home or self-care (01) ==
LOC: SSTAY O 06:04
PROVIDERS: ATTEND Radiology Vascular & Interventional Radiology
DX: R18.8 Other ascites (principal); Z53.8 Procedure and treatment not carried out for other reasons; R14.0 Abdominal distension (gaseous); I50.9 Heart failure, unspecified; B19.20 Unspecified viral hepatitis C without hepatic coma; K74.60 Unspecified cirrhosis of liver; Z85.038 Personal history of other malignant neoplasm of large intestine; Z88.0 Allergy status to penicillin; Z88.2 Allergy status to sulfonamides; Z79.899 Other long term (current) drug therapy; Z80.3 Family history of malignant neoplasm of breast; Z80.0 Family history of malignant neoplasm of digestive organs; Z82.49 Family history of ischemic heart disease and other diseases of the circulatory system
CPT/HCPCS: 76705; A6258

== ENCOUNTER 2023-03-09 18:08 | Emergency (ER) | payer MEDICAID ==
[~2023-03-09] VITALS: Ht 162.6 cm; Wt 63.6 kg
[~2023-03-09 18:08] MED LIST changes: +ALBU8HFA PO; -ASCO-134 PO; -FEXO-271 PO; -HYDR-3973 PO; -LOPE2CAP PO; +OMEP20CA16 PO; +ONDA-104 PO; -OXYC-658 PO; +OXYC15TA PO; -PANT40TA54 PO; -POTA-192 PO; +POTA-206 PO; -SPIR50TA PO; +SPIR50TA5 PO; -TRAM50TA2 PO; -VITA-268 PO
[2023-03-09 18:44] VITALS: TEMP 98.2
[2023-03-09] MEDS ORDERED: ondansetron/PF 4mg/2ml inj IV ONE (20:50)
[2023-03-09] MEDS ORDERED: morphine 2 MG/ML inj. syringe IV ONE (20:55)
--- NOTE | 2023-03-09 20:57 | NUR ---
patient states she is not allergic to morphine although it states this in her chart. md notified, he states it is okay to give pt 2 mg morphine IV as long as her fentanyl patch is removed. patch removed and properly disposed of.
[2023-03-09 23:08] VITALS: BP 102/75; PULSE 85; RESP 15; O2SAT 94
--- NOTE | 2023-03-09 23:18 | NUR ---
PATIENTS FAMILY EXPRESSED CONCERNS REGARDING HOSPICE WORKER NOT PROVIDING CARE FOR PT. STATED SHE IS NOT AT THE PATIENTS HOME OR GIVING MEDS AT THE APPROPRIATE TIME. APS REPORT FILED.
== END 2023-03-09 23:09 | disposition home or self-care (01) ==
LOC: ER 18:10
DX: G89.29 Other chronic pain (principal); Z88.0 Allergy status to penicillin; Z51.5 Encounter for palliative care; Z88.5 Allergy status to narcotic agent; Z79.899 Other long term (current) drug therapy
CPT/HCPCS: 96374; 96375; 99285; J2270; J2405; A4615

== ENCOUNTER 2023-03-11 02:26 | Emergency (ER) | payer MEDICAID ==
[~2023-03-11] VITALS: Ht 162.6 cm; Wt 59.1 kg
[2023-03-11] MEDS ORDERED: ondansetron/PF 4mg/2ml inj IV STA (02:39)
[2023-03-11] MEDS ORDERED: morphine 4 MG/ML inj SYRINge IV STA (02:39)
[2023-03-11] MEDS ORDERED: LORazepam 2 mg/ml vial IV STA (02:42)
[2023-03-11 03:16] LABS: BASOPHILS % (AUTO) 0.3 % (0-1); EOSINOPHILS % (AUTO) 0.5 % (0-6); HEMATOCRIT 30.5 % (35.0-45.0); HEMOGLOBIN 9.5 g/dl (12.0-16.0); LYMPHOCYTES # (AUTO) 0.5 X10'3 (1.1-4.8); LYMPHOCYTES % (AUTO) 11.2 % (21-51); MEAN CORPUSCULAR HEMOGLOBIN 24.5 PG (27.0-31.0); MEAN CORPUSCULAR HGB CONC 31.1 g/dL (33.0-36.5); MEAN CORPUSCULAR VOLUME 78.6 FL (78-98); MONOCYTES # (AUTO) 0.1 X10'3 (0-0.9); NEUTROPHILS # (AUTO) 4.1 X10'3 (1.8-7.7); PLATELET COUNT 215 X10'3 (140-440); RED BLOOD COUNT 3.89 X10'6 (4.20-5.60); RED CELL DISTRIBUTION WIDTH 18.9 % (11.5-14.5); WHITE BLOOD COUNT 4.8 X10'3 (4.5-11.0)
[2023-03-11 03:30] LABS: ALANINE AMINOTRANSFERASE 18 U/L (12-78); ALBUMIN 2.5 G/DL (3.4-5.0); ALBUMIN/GLOBULIN RATIO 0.7 (1.1-1.5); ALKALINE PHOSPHATASE 81 IU/L (46-116); ANION GAP 6 (8-16); ASPARTATE AMINO TRANSFERASE 28 U/L (10-37); BILIRUBIN,TOTAL 0.6 MG/DL (0.1-1.0); BLOOD UREA NITROGEN 45 MG/DL (7-18); BUN/CREATININE RATIO 30.4 (10.0-20.0); CALCIUM 8.7 MG/DL (8.5-10.1); CHLORIDE 108 MMOL/L (99-107); CREATININE 1.48 MG/DL (0.40-0.90); ETHANOL < 10 MG/DL (<10); GLUCOSE 83 MG/DL (70-104); LIPASE 113 U/L (73-393); POTASSIUM 4.2 MMOL/L (3.5-5.1); SODIUM 142 MMOL/L (135-145); TOTAL PROTEIN 6.3 G/DL (6.4-8.2); eGFR 36 ML/MIN
[2023-03-11 05:28] LABS: ANISOCYTOSIS 2+; MICROCYTOSIS 1+; PLATELET ESTIMATE NORMAL
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
--- NOTE | 2023-03-11 07:49 | NUR ---
CALL TO THALIA SKYLAR, NO ANSWER, LEFT MESSAGE.
--- NOTE | 2023-03-11 10:09 | NUR ---
[facility] [phone]
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
--- NOTE | 2023-03-11 12:00 | NUR ---
PT BELONGINGS WENT THROUGH AND PLACED IN OVERFLOW BY SECURITY. PT MEDS WILL BE RECORDED AND SENT TO PHARMACY BY RESPIRATORY THERAPIST CORAL.
[2023-03-11] MEDS ORDERED: TRAM50TA2 PO (13:08)
[2023-03-11] MEDS ORDERED: QUET25TA36 PO (13:08)
[2023-03-11] MEDS ORDERED: CLON1TAB12 PO (13:08)
[2023-03-11] MEDS ORDERED: QUET50TA24 PO (13:08)
[2023-03-11] MEDS ORDERED: HYDR1LIQ5 PO (13:08)
[2023-03-11] MEDS ORDERED: FENT1PAT8 TOP (13:08)
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
[2023-03-11] MEDS ORDERED: HYDROMORPHONE HCL 1 MG/ML PO PRN (15:20)
[2023-03-11] MEDS ORDERED: clonazePAM 1mg tablet PO PRN (15:20)
[2023-03-11] MEDS ORDERED: QUEtiapine 25mg tablet PO PRN (15:20)
[2023-03-11] MEDS ORDERED: traMADol 50MG tablet PO PRN (15:20)
[2023-03-11] MEDS ORDERED: ondansetron 4mg rapidly disintigrating tab PO PRN (15:20)
[2023-03-11] MEDS ORDERED: OMEPRAZOLE 20MG PO SCH (17:00)
--- NOTE | 2023-03-11 20:34 | NUR ---
Pt placed in room 20 at 2024, appears pleasant but painful and highly emotional regarding her current situation
--- NOTE | 2023-03-11 20:40 | NUR ---
Pt's friend Indira at bedside. Pt is calm/cooperative. Conversation appropriate. Pt is upset feels her family are "letting me ."
[2023-03-11] MEDS ORDERED: QUEtiapine 25mg tablet PO SCH (21:00)
[2023-03-11] MEDS ORDERED: cetirizine 10mg tablet PO SCH (21:00)
--- NOTE | 2023-03-11 21:00 | NUR ---
Spoke with patient about her Morphine allergy. Pt stated "that is what took away my pain." Pt denied medication reaction.
--- NOTE | 2023-03-11 21:30 | NUR ---
Shanice (Patient's close friend) at bedside room 20
[2023-03-11] MEDS ORDERED: HYDROcodone/acetaminophen 10/325mg tab PO ONE (21:40)
[2023-03-11] MEDS ORDERED: morphine 4 MG/ML inj SYRINge IV ONE (21:40)
[2023-03-11] MEDS: furosemide 20MG tablet PO SCH (21:47)
--- NOTE | 2023-03-11 22:02 | NUR ---
Shanice (Pt Friend) Phone number Cell-
--- NOTE | 2023-03-11 22:07 | NUR ---
Pt was compliant with her PM medication- administered Lasix, Seroquel, Certrizine. Pt c/o increased pain in her stomach. Received order for Morphine 4mg and PO [place] 10mg.
--- NOTE | 2023-03-11 22:17 | NUR ---
Pt restless waiting for Morphine to be verified from [facility] (no pharmacist on duty.)
--- NOTE | 2023-03-11 22:45 | NUR ---
Administered PRN medication without issue. Pt is comfortably, no restless movements, rr even and unlabored.
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
--- NOTE | 2023-03-12 00:13 | NUR ---
PLACED SAFETY CLOTHING AND EQUIPMENT DEVELOPER CONSULTATION.
--- NOTE | 2023-03-12 00:15 | NUR ---
Pt is sedated, she is restless, talking in her sleep. Will continue monitor.
--- NOTE | 2023-03-12 00:30 | NUR ---
Pt woke and had to be asssited to the bathroom. Pt presents sedated and slightly confused. Obtained urine sample and sent to lab.
--- NOTE | 2023-03-12 01:00 | NUR ---
Pt woke and asked for her candy, pt given two pieces of her chocolate. Pt alert.
[2023-03-12 01:21] LABS: CLARITY,URINE SLIGHTLY CLOUDY (Clear); COLOR,URINE YELLOW (Yellow); GLUCOSE, URINE NEGATIVE (Neg); KETONES,URINE NEGATIVE (Neg); LEUKOCYTE ESTERASE ,URINE SMALL (Neg); NITRITES, URINE NEGATIVE (Neg); OCCULT BLOOD,URINE LARGE (Neg); PROTEIN,URINE 30 mg/dl (Neg)
[2023-03-12 01:24] LABS: UA COLLECTION TYPE NON-SPECIFIED
[2023-03-12 02:13] LABS: BACTERIA,URINE 1+ /HPF (Neg); SQUAMOUS EPITHELIAL CELL,UR MANY /LPF (FEW)
[2023-03-12 02:14] LABS: MUCUS STRANDS FEW /LPF (Neg)
--- NOTE | 2023-03-12 02:20 | NUR ---
URINE SAMPLE REJECTED.
--- NOTE | 2023-03-12 02:29 | NUR ---
Pt has been sitting on bedside wavering back and forth. Pt is now back to sleep in low shrestha's position.
--- NOTE | 2023-03-12 02:45 | NUR ---
Pt woke and was hungry, turkey sandwich provided.
--- NOTE | 2023-03-12 03:38 | NUR ---
NEW URINE SAMPLE SENT TO LAB.
--- NOTE | 2023-03-12 04:02 | NUR ---
Pt resting comfortably on left side.
[2023-03-12 05:00] VITALS: BP_DIAS 67; TEMP 98.7; O2SAT 97
--- NOTE | 2023-03-12 05:09 | NUR ---
Pt ambulated independently to bathroom to void and wash hands.
--- NOTE | 2023-03-12 05:18 | NUR ---
SPOKE WITH APS ANSWERING SERVICE RECEIVED FAX # [phone].
--- NOTE | 2023-03-12 05:19 | NUR ---
FAXED APS REPORT.
--- NOTE | 2023-03-12 06:10 | NUR ---
Patient awake sitting in bed. No distress observed. Continue to monitor.
[2023-03-12] MEDS ORDERED: spironolactone 50 MG tablet PO SCH (08:00)
[2023-03-12] MEDS ORDERED: potassium chloride 10mEq ER tablet PO SCH (08:00)
[2023-03-12] MEDS ORDERED: atenolol 25mg tablet PO SCH (08:00)
--- NOTE | 2023-03-12 08:10 | NUR ---
Patient eating breakfast. No distress observed. Continue to monitor.
[2023-03-12] MEDS: furosemide 20MG tablet PO SCH (08:55)
[2023-03-12 08:56] VITALS: BP_SYST 115; PULSE 63
[2023-03-12] MEDS: clonazePAM 1mg tablet PO PRN ×2 (09:38→16:08)
[2023-03-12] MEDS: oxyCODONE IR 5mg (immed. release) tablet PO PRN ×2 (09:38→16:09)
--- NOTE | 2023-03-12 10:03 | NUR ---
Patient's son in law visiting with patient. Patient is happy to see him. No distress observed. Continue to monitor.
--- NOTE | 2023-03-12 12:03 | NUR ---
Patient sleeping. No distress observed. Lunch is at bedside. Continue to monitor.
--- NOTE | 2023-03-12 12:32 | NUR ---
Patient eating her lunch. No distress observed. Continue to monitor.
[2023-03-12 12:49] LABS: URINE AMPHETAMINE SCREEN POSITIVE (Neg); URINE BARBITUATE SCREEN NEGATIVE (Neg); URINE BENZODIAZEPINES SCREEN NEGATIVE (Neg); URINE CANNABINOID SCREEN POSITIVE (Neg); URINE COCAINE SCREEN NEGATIVE (Neg); URINE METHADONE SCREEN NEGATIVE (Neg); URINE OPIATE SCREEN POSITIVE (Neg); URINE PHENCYCLIDINE SCREEN NEGATIVE (Neg)
--- NOTE | 2023-03-12 13:03 | NUR ---
RN speaking to patient and patient states "I can't hear you!" Patient starts to cry. Continue to monitor.
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
--- NOTE | 2023-03-12 15:45 | NUR ---
Patient is now calm. Patient is hard of hearing and understanding RN through writing. Patient is off a hold and wants to leave. Family has been refusing to milk pickup driver patient. Patient was combative with them. Patient was positive for amphetamines, Fentanyl and narcotics. No meds that patient takes contain amphetamines. RN spoke to patient's son-in-law. He is checking to see if family will take patient backhome. Continue to monitor.
--- NOTE | 2023-03-12 15:50 | NUR ---
Javi son-in-law states that the patient's daughter is on her way to pick her up. Patient aware. Continue to monitor.
--- NOTE | 2023-03-12 16:05 | NUR ---
Patient crying in pain. RN gave patient Oxycodone and Clonazepam. Continue to monitor.
--- NOTE | 2023-03-12 16:42 | NUR ---
Nobody has arrived as of yet to picker and packer patient. Patient is dressed and sitting inher bed awaiting family. Continue to monitor.
--- NOTE | 2023-03-12 16:44 | NUR ---
Son-in-law, Javi'venice #[phone].
[2023-03-12 16:47] VITALS: RESP 16
--- NOTE | 2023-03-12 18:49 | NUR ---
Pt's friend Felipa stated she was picking patient up and would be here, the latest at 1830. Still no show and not answering her phone. Continue to monitor.
--- NOTE | 2023-03-12 19:02 | NUR ---
Felipa [phone], Lori'venice Daughter
[2023-03-13] MEDS ORDERED: pantoprazole 40mg Tablet.DR PO SCH (07:30)
[2023-03-13] MEDS ORDERED: fentaNYL 25MCG/hour patch.TD72 TD SCH (08:00)
== END 2023-03-12 19:21 | disposition home or self-care (01) ==
LOC: ER 02:26
DX: R10.9 Unspecified abdominal pain (principal); G89.29 Other chronic pain; R14.0 Abdominal distension (gaseous); Z86.19 Personal history of other infectious and parasitic diseases; Z85.038 Personal history of other malignant neoplasm of large intestine; Z88.0 Allergy status to penicillin; Z88.5 Allergy status to narcotic agent; Z79.899 Other long term (current) drug therapy
CPT/HCPCS: 36415; 74176; 80053; 80305; 80320; 81001; 83690; 85008; 85025; 96374; 96375; 96376; 99285; C2617; J2060; J2270; J2405; A6212

== ENCOUNTER 2023-03-27 13:55 | Emergency (ER) | payer MEDICAID ==
[~2023-03-27] VITALS: Ht 162.6 cm; Wt 47.3 kg
[~2023-03-27 13:55] MED LIST changes: -ALBU8HFA PO; +CLON1TAB12 PO; +FENT1PAT8 TOP; +HYDR1LIQ5 PO; +QUET25TA36 PO; +QUET50TA24 PO; +TRAM50TA2 PO
[2023-03-27 14:33] VITALS: BP 162/79; PULSE 56; TEMP 97.7; O2SAT 100
[2023-03-27 14:56] LABS: BASOPHILS % (AUTO) 0.4 % (0-1); EOSINOPHILS # (AUTO) 0.1 X10'3 (0-0.9); EOSINOPHILS % (AUTO) 1.1 % (0-6); HEMATOCRIT 32.4 % (35.0-45.0); LYMPHOCYTES # (AUTO) 0.8 X10'3 (1.1-4.8); MEAN CORPUSCULAR HEMOGLOBIN 24.4 PG (27.0-31.0); MEAN CORPUSCULAR VOLUME 78.8 FL (78-98); MEAN PLATELET VOLUME 6.8 FL (7.4-10.4); MONOCYTES # (AUTO) 0.2 X10'3 (0-0.9); MONOCYTES % (AUTO) 4.3 % (2-12); NEUTROPHILS # (AUTO) 4.4 X10'3 (1.8-7.7); NEUTROPHILS % (AUTO) 80.2 % (42-75); PLATELET COUNT 195 X10'3 (140-440); RED BLOOD COUNT 4.11 X10'6 (4.20-5.60); RED CELL DISTRIBUTION WIDTH 20.5 % (11.5-14.5); WHITE BLOOD COUNT 5.4 X10'3 (4.5-11.0)
[2023-03-27 15:12] LABS: ALANINE AMINOTRANSFERASE 25 U/L (12-78); ALBUMIN/GLOBULIN RATIO 0.7 (1.1-1.5); ALKALINE PHOSPHATASE 122 IU/L (46-116); ANION GAP 6 (8-16); ASPARTATE AMINO TRANSFERASE 37 U/L (10-37); BILIRUBIN,TOTAL 0.3 MG/DL (0.1-1.0); BLOOD UREA NITROGEN 25 MG/DL (7-18); BUN/CREATININE RATIO 30.1 (10.0-20.0); CALCIUM 8.8 MG/DL (8.5-10.1); CHLORIDE 105 MMOL/L (99-107); CREATININE 0.83 MG/DL (0.40-0.90); LIPASE 506 U/L (73-393); POTASSIUM 4.5 MMOL/L (3.5-5.1); SODIUM 138 MMOL/L (135-145); TOTAL CARBON DIOXIDE 26.8 MMOL/L (24-32); TOTAL PROTEIN 7.5 G/DL (6.4-8.2); eCRCL 55 ML/MIN; eGFR 71 ML/MIN
[2023-03-27 15:16] LABS: GLUCOSE 116 MG/DL (70-104)
[2023-03-27 15:21] LABS: BILIRUBIN,URINE NEGATIVE (Neg); CLARITY,URINE SLIGHTLY CLOUDY (Clear); COLOR,URINE STRAW (Yellow); GLUCOSE, URINE NEGATIVE (Neg); KETONES,URINE NEGATIVE (Neg); LEUKOCYTE ESTERASE ,URINE NEGATIVE (Neg); NITRITES, URINE NEGATIVE (Neg); OCCULT BLOOD,URINE MODERATE (Neg); PH,URINE 5.5 (4.8-8.0); PROTEIN,URINE 30 mg/dl (Neg); UROBILINOGEN,URINE 0.2 E.U/dL (0.2-1.0)
[2023-03-27 15:22] LABS: UA COLLECTION TYPE CLN CATCH MIDSTREAM
[2023-03-27 15:31] LABS: PLATELET ESTIMATE NORMAL
[2023-03-27 15:32] LABS: ANISOCYTOSIS 3+; MICROCYTOSIS 1+
[2023-03-27 15:33] LABS: ELLIPTOCYTES FEW; HYPOCHROMASIA 1+; SCHISTOCYTES FEW
[2023-03-27 15:57] LABS: MUCUS STRANDS FEW /LPF (Neg); SQUAMOUS EPITHELIAL CELL,UR FEW /LPF (FEW)
[2023-03-27 15:58] LABS: BACTERIA,URINE FEW /HPF (Neg); RBC,URINE 20-50 /HPF (0-2); WBC,URINE 0-4 /HPF (0-4)
[2023-03-27] MEDS ORDERED: ketorolac tromethamine 15mg/ml inj. IM ONE (16:05)
[2023-03-27 16:24] VITALS: RESP 18
== END 2023-03-27 16:28 | disposition home or self-care (01) ==
LOC: ER 13:55
DX: R10.84 Generalized abdominal pain (principal); Z88.0 Allergy status to penicillin; Z79.899 Other long term (current) drug therapy
CPT/HCPCS: 36415; 80053; 81001; 83690; 85008; 85025; 96372; 99283; J1885; C1758

== ENCOUNTER 2023-08-20 07:29 | Inpatient (IN) | payer MEDICAID ==
[~2023-08-20] VITALS: Ht 162.6 cm; Wt 57.5 kg
[2023-08-20 10:06] LABS: BASOPHILS % (AUTO) 0.8 % (0-1); EOSINOPHILS # (AUTO) 0.1 X10'3 (0-0.9); EOSINOPHILS % (AUTO) 1.8 % (0-6); HEMATOCRIT 25.2 % (35.0-45.0); HEMOGLOBIN 7.6 g/dl (12.0-16.0); LYMPHOCYTES # (AUTO) 0.5 X10'3 (1.1-4.8); LYMPHOCYTES % (AUTO) 10.9 % (21-51); MEAN CORPUSCULAR HEMOGLOBIN 25.7 PG (27.0-31.0); MEAN CORPUSCULAR HGB CONC 30.2 g/dL (33.0-36.5); MEAN CORPUSCULAR VOLUME 85.2 FL (78-98); MEAN PLATELET VOLUME 6.9 FL (7.4-10.4); MONOCYTES # (AUTO) 0.3 X10'3 (0-0.9); MONOCYTES % (AUTO) 5.6 % (2-12); NEUTROPHILS # (AUTO) 3.7 X10'3 (1.8-7.7); NEUTROPHILS % (AUTO) 80.9 % (42-75); PLATELET COUNT 153 X10'3 (140-440); RED BLOOD COUNT 2.96 X10'6 (4.20-5.60); RED CELL DISTRIBUTION WIDTH 18.5 % (11.5-14.5); WHITE BLOOD COUNT 4.6 X10'3 (4.5-11.0)
[2023-08-20 10:17] LABS: PROTHROMBIN TIME 11.2 SECONDS (9.0-12.0)
[2023-08-20 10:32] LABS: ALANINE AMINOTRANSFERASE 18 U/L (12-78); ALBUMIN 1.7 G/DL (3.4-5.0); ALBUMIN/GLOBULIN RATIO 0.4 (1.1-1.5); ALKALINE PHOSPHATASE 161 IU/L (46-116); ANION GAP 5 (8-16); ASPARTATE AMINO TRANSFERASE 40 U/L (10-37); BILIRUBIN,TOTAL 0.5 MG/DL (0.1-1.0); BLOOD UREA NITROGEN 37 MG/DL (7-18); BUN/CREATININE RATIO 24.2 (10.0-20.0); CALCIUM 8.2 MG/DL (8.5-10.1); CHLORIDE 110 MMOL/L (99-107); CREATININE 1.53 MG/DL (0.40-0.90); GLUCOSE 90 MG/DL (70-104); POTASSIUM 5.9 MMOL/L (3.5-5.1); SODIUM 140 MMOL/L (135-145); TOTAL CARBON DIOXIDE 25.3 MMOL/L (24-32); TOTAL PROTEIN 6.1 G/DL (6.4-8.2); eCRCL 35 ML/MIN; eGFR 35 ML/MIN
[2023-08-20 10:33] LABS: PRO BRAIN NATRIURETIC PEPTIDE 16124 PG/ML (0-125)
[2023-08-20] MEDS: oxyCODONE IR 5mg (immed. release) tablet PO PRN ×2 (11:29→17:34)
[2023-08-20] MEDS ORDERED: sodium bicarbonate (8.4%) 1 mEq/ml syringe IV ONE (11:45)
[2023-08-20] MEDS ORDERED: calcium chloride 100 MG/1 ML inj IV ONE (11:50)
[2023-08-20 12:45] LABS: ALBUMIN 1.7 G/DL (3.4-5.0); ANION GAP 4 (8-16); BLOOD UREA NITROGEN 38 MG/DL (7-18); BUN/CREATININE RATIO 23.2 (10.0-20.0); CALCIUM 8.3 MG/DL (8.5-10.1); CHLORIDE 109 MMOL/L (99-107); CREATININE 1.64 MG/DL (0.40-0.90); SODIUM 140 MMOL/L (135-145); TOTAL CARBON DIOXIDE 27.1 MMOL/L (24-32); eCRCL 32 ML/MIN; eGFR 32 ML/MIN
[2023-08-20 12:48] LABS: GLUCOSE 91 MG/DL (70-104)
[2023-08-20] MEDS ORDERED: potassium Cl 20 mEq SR tablet PO PRN ×2 (12:50)
[2023-08-20] MEDS ORDERED: mag hydrox/Alum hydrox/simeth 30ml oral suspension PO PRN (12:50)
[2023-08-20] MEDS ORDERED: magnesium hydroxide 30ml (MOM) UD suspension PO PRN (12:50)
[2023-08-20] MEDS ORDERED: magnesium 4gm in 100ml NS 100 ML IV PRN (12:50)
[2023-08-20] MEDS ORDERED: ondansetron/PF 4mg/2ml inj IV PRN (12:50)
[2023-08-20] MEDS ORDERED: magnesium 2GM in 50ml NS 50 ML IV PRN (12:50)
[2023-08-20] MEDS ORDERED: magnesium Cl slow-release 64mg tablet PO PRN (12:50)
[2023-08-20] MEDS ORDERED: acetaminophen 325mg tablet PO PRN (12:50)
[2023-08-20] MEDS ORDERED: acetaminophen 650mg rectal suppository RC PRN (12:50)
[2023-08-20] MEDS ORDERED: ipratropium/albuterol 3ml nebule NEB PRN (12:50)
[2023-08-20] MEDS ORDERED: potassium Cl 40MEQ/1/2NS 520ml 520 ML IV PRN (12:50)
[2023-08-20 12:52] LABS: POTASSIUM 6.1 MMOL/L (3.5-5.1)
[2023-08-20 13:28] VITALS: BP 172/103; PULSE 62; RESP 14; O2SAT 99
[2023-08-20 13:29] LABS: MAGNESIUM 1.9 MG/DL (1.5-2.4)
[2023-08-20] MEDS ORDERED: insulin regular, human 10 units/0.1 ml syringe IV ONE ×2 (13:45→17:25)
[2023-08-20] MEDS ORDERED: dextrose 50%-water 50ml dispensing syringe IV ONE ×2 (13:45→17:25)
[2023-08-20 14:10] VITALS: BP 178/98; PULSE 68; RESP 12; O2SAT 97
[2023-08-20] MEDS: CefTRIAXone/D5W-Rocephin 1gm 50 ML IV SCH (14:59)
[2023-08-20] MEDS ORDERED: oxyCODONE IR 5mg (immed. release) tablet PO PRN (15:00)
[2023-08-20] MEDS ORDERED: hydrALAZINE 20mg/ml inj. IV PRN (15:15)
[2023-08-20 16:12] LABS: ALBUMIN 1.6 G/DL (3.4-5.0); ANION GAP 2 (8-16); BLOOD UREA NITROGEN 38 MG/DL (7-18); BUN/CREATININE RATIO 23.2 (10.0-20.0); CALCIUM 8.9 MG/DL (8.5-10.1); CHLORIDE 110 MMOL/L (99-107); CREATININE 1.64 MG/DL (0.40-0.90); GLUCOSE 130 MG/DL (70-104); SODIUM 140 MMOL/L (135-145); TOTAL CARBON DIOXIDE 28.4 MMOL/L (24-32); eCRCL 32 ML/MIN; eGFR 32 ML/MIN
[2023-08-20] MEDS: HYDROmorphone inj. 0.5 MG/0.5 ML DISP.SYRIN IV PRN ×2 (16:57→21:33)
[2023-08-20 17:32] VITALS: PULSE 72; RESP 22; O2SAT 99
[2023-08-20] MEDS: carVEDilol 3.125mg tablet PO SCH (17:39)
[2023-08-20] MEDS ORDERED: methadone 10mg tablet PO ONE (18:00)
[2023-08-20] MEDS ORDERED: methadone 10mg tablet PO SCH (18:00)
[2023-08-20 19:20] VITALS: BP 166/107; PULSE 87; RESP 19; TEMP 98.2; O2SAT 100
[2023-08-20] MEDS: K and/or MAG REPLACEMENT MC SCH (20:00)
[2023-08-20 21:29] VITALS: PULSE 70; RESP 18; O2SAT 95
[2023-08-20] MEDS: docusate sod 100mg capsule PO SCH (21:32)
[2023-08-20] MEDS: heparin, porcine 5000 units/ml vial SQ SCH (21:32)
[2023-08-20 22:00] VITALS: BP 150/84; PULSE 83; RESP 15; TEMP 98.4; O2SAT 98
[2023-08-21] VITALS (8 sets, daily range): BP systolic 144–165; BP diastolic 85–106; PULSE 66–88; RESP 16–20; TEMP 98–99.2; O2SAT 94–100
[2023-08-21] MEDS: oxyCODONE IR 5mg (immed. release) tablet PO PRN ×3 (00:48→19:17)
[2023-08-21 06:27] LABS: HEMATOCRIT 26.2 % (35.0-45.0); HEMOGLOBIN 8.3 g/dl (12.0-16.0); MEAN CORPUSCULAR HEMOGLOBIN 25.6 PG (27.0-31.0); MEAN CORPUSCULAR HGB CONC 31.5 g/dL (33.0-36.5); MEAN CORPUSCULAR VOLUME 81.3 FL (78-98); MEAN PLATELET VOLUME 6.9 FL (7.4-10.4); PLATELET COUNT 155 X10'3 (140-440); RED BLOOD COUNT 3.22 X10'6 (4.20-5.60); RED CELL DISTRIBUTION WIDTH 18.3 % (11.5-14.5); WHITE BLOOD COUNT 5.9 X10'3 (4.5-11.0)
[2023-08-21 06:37] LABS: ALBUMIN 1.3 G/DL (3.4-5.0); ANION GAP 4 (8-16); BLOOD UREA NITROGEN 46 MG/DL (7-18); BUN/CREATININE RATIO 27.4 (10.0-20.0); CHLORIDE 110 MMOL/L (99-107); CREATININE 1.68 MG/DL (0.40-0.90); GLUCOSE 123 MG/DL (70-104); MAGNESIUM 1.8 MG/DL (1.5-2.4); PHOSPHORUS 3.9 MG/DL (2.3-4.5); SODIUM 139 MMOL/L (135-145); eCRCL 32 ML/MIN; eGFR 31 ML/MIN
[2023-08-21 06:52] LABS: APTT 25 SECONDS (22-32); INR 1.1 INR; PROTHROMBIN TIME 11.7 SECONDS (9.0-12.0)
[2023-08-21] MEDS ORDERED: sodium polystyrene sulfonate 15gm/60ml oral suspension PO ONE (07:45)
[2023-08-21] MEDS ORDERED: PERFLUTREN PROTEIN-A MICROSPHR (Optison) 0.22 MG/ML 3ML VIAL IV ONE (07:45)
[2023-08-21] MEDS ORDERED: furosemide 40mg/4ml inj IV SCH (08:00)
[2023-08-21] MEDS: K and/or MAG REPLACEMENT MC SCH ×2 (08:00→20:00)
[2023-08-21] MEDS: HYDROmorphone inj. 0.5 MG/0.5 ML DISP.SYRIN IV PRN ×2 (10:19→22:20)
[2023-08-21] MEDS: docusate sod 100mg capsule PO SCH ×2 (10:30→19:30)
[2023-08-21] MEDS: carVEDilol 3.125mg tablet PO SCH ×2 (10:30→19:16)
[2023-08-21] MEDS: heparin, porcine 5000 units/ml vial SQ SCH ×2 (10:31→19:17)
[2023-08-21] MEDS: CefTRIAXone/D5W-Rocephin 1gm 50 ML IV SCH ×2 (10:46→16:29)
[2023-08-21] MEDS: methadone 5mg tablet PO SCH ×2 (12:09→19:17)
[2023-08-22] MEDS: oxyCODONE IR 5mg (immed. release) tablet PO PRN ×3 (02:35→16:22)
[2023-08-22 06:00] VITALS: BP 138/76; PULSE 69; RESP 14; TEMP 98.8; O2SAT 99
[2023-08-22 07:03] LABS: APTT 28 SECONDS (22-32); INR 1.1 INR; PROTHROMBIN TIME 11.5 SECONDS (9.0-12.0)
[2023-08-22 07:04] LABS: HEMOGLOBIN 7.6 g/dl (12.0-16.0); MEAN CORPUSCULAR HEMOGLOBIN 25.5 PG (27.0-31.0); MEAN CORPUSCULAR HGB CONC 31.6 g/dL (33.0-36.5); MEAN CORPUSCULAR VOLUME 80.7 FL (78-98); MEAN PLATELET VOLUME 6.7 FL (7.4-10.4); PLATELET COUNT 130 X10'3 (140-440); RED BLOOD COUNT 2.98 X10'6 (4.20-5.60); RED CELL DISTRIBUTION WIDTH 18.3 % (11.5-14.5); WHITE BLOOD COUNT 4.1 X10'3 (4.5-11.0)
[2023-08-22 07:25] LABS: ALBUMIN 1.3 G/DL (3.4-5.0); ANION GAP 8 (8-16); BLOOD UREA NITROGEN 49 MG/DL (7-18); BUN/CREATININE RATIO 33.1 (10.0-20.0); CALCIUM 7.6 MG/DL (8.5-10.1); CHLORIDE 109 MMOL/L (99-107); CREATININE 1.48 MG/DL (0.40-0.90); GLUCOSE 87 MG/DL (70-104); MAGNESIUM 1.6 MG/DL (1.5-2.4); SODIUM 141 MMOL/L (135-145); TOTAL CARBON DIOXIDE 23.8 MMOL/L (24-32); eCRCL 36 ML/MIN; eGFR 36 ML/MIN
[2023-08-22] MEDS: K and/or MAG REPLACEMENT MC SCH ×2 (08:00→20:00)
[2023-08-22] MEDS: docusate sod 100mg capsule PO SCH ×2 (08:00→19:43)
[2023-08-22 10:00] VITALS: BP 134/71; PULSE 74; RESP 12; TEMP 98.8; O2SAT 97
[2023-08-22] MEDS: CefTRIAXone/D5W-Rocephin 1gm 50 ML IV SCH (11:28)
[2023-08-22] MEDS: carVEDilol 3.125mg tablet PO SCH ×2 (11:31→19:49)
[2023-08-22] MEDS: methadone 5mg tablet PO SCH ×2 (11:31→19:49)
[2023-08-22] MEDS: heparin, porcine 5000 units/ml vial SQ SCH ×2 (11:40→20:00)
[2023-08-22 18:00] VITALS: BP 143/75; PULSE 63; RESP 18; TEMP 98.8; O2SAT 97
[2023-08-22] MEDS: furosemide 40mg/4ml inj IV SCH (19:49)
[2023-08-22] MEDS: HYDROmorphone 1 mg/ml syringe IV PRN (19:51)
[2023-08-22 20:00] VITALS: RESP 16; O2SAT 97
[2023-08-22 21:06] VITALS: PULSE 71; RESP 16; O2SAT 99
[2023-08-22 22:00] VITALS: BP 129/66; PULSE 67; RESP 15; TEMP 97.2; O2SAT 100
[2023-08-23] VITALS (8 sets, daily range): BP systolic 137–138; BP diastolic 61–77; PULSE 62–75; RESP 16–20; TEMP 98.2–98.6; O2SAT 96–100
[2023-08-23 07:06] LABS: HEMATOCRIT 24.1 % (35.0-45.0); HEMOGLOBIN 7.5 g/dl (12.0-16.0); MEAN CORPUSCULAR HEMOGLOBIN 25.4 PG (27.0-31.0); MEAN CORPUSCULAR HGB CONC 31.3 g/dL (33.0-36.5); MEAN CORPUSCULAR VOLUME 81.2 FL (78-98); MEAN PLATELET VOLUME 7.2 FL (7.4-10.4); PLATELET COUNT 118 X10'3 (140-440); RED BLOOD COUNT 2.97 X10'6 (4.20-5.60); WHITE BLOOD COUNT 3.8 X10'3 (4.5-11.0)
[2023-08-23] MEDS: methadone 5mg tablet PO SCH ×2 (07:26→19:53)
[2023-08-23] MEDS: HYDROmorphone 1 mg/ml syringe IV PRN ×4 (07:26→23:58)
[2023-08-23] MEDS: CefTRIAXone/D5W-Rocephin 1gm 50 ML IV SCH (07:26)
[2023-08-23] MEDS: furosemide 40mg/4ml inj IV SCH ×2 (07:26→19:54)
[2023-08-23] MEDS: docusate sod 100mg capsule PO SCH ×2 (07:26→19:53)
[2023-08-23] MEDS: carVEDilol 3.125mg tablet PO SCH ×2 (07:26→19:53)
[2023-08-23] MEDS: heparin, porcine 5000 units/ml vial SQ SCH ×2 (07:38→19:54)
[2023-08-23] MEDS: K and/or MAG REPLACEMENT MC SCH ×2 (08:00→19:39)
[2023-08-23 08:21] LABS: ALBUMIN 1.3 G/DL (3.4-5.0); ANION GAP 9 (8-16); BLOOD UREA NITROGEN 51 MG/DL (7-18); BUN/CREATININE RATIO 38.3 (10.0-20.0); CALCIUM 7.6 MG/DL (8.5-10.1); CHLORIDE 108 MMOL/L (99-107); CREATININE 1.33 MG/DL (0.40-0.90); GLUCOSE 95 MG/DL (70-104); MAGNESIUM 1.7 MG/DL (1.5-2.4); PHOSPHORUS 4.1 MG/DL (2.3-4.5); POTASSIUM 4.9 MMOL/L (3.5-5.1); SODIUM 140 MMOL/L (135-145); TOTAL CARBON DIOXIDE 22.6 MMOL/L (24-32); eCRCL 40 ML/MIN; eGFR 41 ML/MIN
[2023-08-23 09:29] LABS: APTT 28 SECONDS (22-32); INR 1.1 INR; PROTHROMBIN TIME 11.3 SECONDS (9.0-12.0)
[2023-08-23] MEDS: oxyCODONE IR 5mg (immed. release) tablet PO PRN ×2 (15:08→19:53)
[2023-08-24] MEDS: oxyCODONE IR 5mg (immed. release) tablet PO PRN ×3 (03:12→13:23)
[2023-08-24 05:27] VITALS: PULSE 75; RESP 16; O2SAT 99
[2023-08-24 07:12] VITALS: BP 124/83; PULSE 64; RESP 16; TEMP 97.6; O2SAT 100
[2023-08-24 07:33] LABS: HEMATOCRIT 26.2 % (35.0-45.0); HEMOGLOBIN 8.3 g/dl (12.0-16.0); MEAN CORPUSCULAR HEMOGLOBIN 25.6 PG (27.0-31.0); MEAN CORPUSCULAR HGB CONC 31.7 g/dL (33.0-36.5); MEAN CORPUSCULAR VOLUME 80.8 FL (78-98); MEAN PLATELET VOLUME 7.2 FL (7.4-10.4); PLATELET COUNT 146 X10'3 (140-440); RED BLOOD COUNT 3.24 X10'6 (4.20-5.60); RED CELL DISTRIBUTION WIDTH 18.4 % (11.5-14.5); WHITE BLOOD COUNT 4.2 X10'3 (4.5-11.0)
[2023-08-24 07:42] LABS: PROTHROMBIN TIME 11.1 SECONDS (9.0-12.0)
[2023-08-24 08:00] LABS: ALBUMIN 1.4 G/DL (3.4-5.0); ANION GAP 7 (8-16); BLOOD UREA NITROGEN 49 MG/DL (7-18); BUN/CREATININE RATIO 37.1 (10.0-20.0); CALCIUM 7.9 MG/DL (8.5-10.1); CHLORIDE 104 MMOL/L (99-107); CREATININE 1.32 MG/DL (0.40-0.90); GLUCOSE 69 MG/DL (70-104); MAGNESIUM 1.6 MG/DL (1.5-2.4); PHOSPHORUS 4.3 MG/DL (2.3-4.5); POTASSIUM 4.8 MMOL/L (3.5-5.1); SODIUM 139 MMOL/L (135-145); TOTAL CARBON DIOXIDE 28.5 MMOL/L (24-32); eCRCL 40 ML/MIN; eGFR 41 ML/MIN
[2023-08-24] MEDS: CefTRIAXone/D5W-Rocephin 1gm 50 ML IV SCH (08:00)
[2023-08-24 08:30] VITALS: RESP 14; O2SAT 100
[2023-08-24] MEDS: carVEDilol 3.125mg tablet PO SCH (08:50)
[2023-08-24] MEDS: docusate sod 100mg capsule PO SCH (08:50)
[2023-08-24] MEDS: methadone 5mg tablet PO SCH (08:50)
[2023-08-24] MEDS: furosemide 40mg/4ml inj IV SCH (08:51)
[2023-08-24] MEDS: heparin, porcine 5000 units/ml vial SQ SCH (08:51)
[2023-08-24] MEDS: HYDROmorphone 1 mg/ml syringe IV PRN (09:48)
[2023-08-24 10:10] VITALS: BP 133/75; PULSE 70; RESP 16; O2SAT 99
[2023-08-24 10:40] VITALS: BP 130/71; PULSE 60; RESP 18; O2SAT 98
[2023-08-24] MEDS ORDERED: albumin (human) 25% 100 ML IV solution IV ONE (10:45)
[2023-08-24] MEDS ORDERED: ondansetron/PF 4mg/2ml inj IV PRN (12:10)
[2023-08-24 13:23] VITALS: RESP 16
[2023-08-24] MEDS ORDERED: OXYC15TA PO (13:52)
[2023-08-24] MEDS ORDERED: COR3.125T PO (13:52)
[2023-08-24] MEDS ORDERED: RIFA550T PO (13:52)
[2023-08-24] MEDS ORDERED: FURO-150 PO (13:54)
== END 2023-08-24 16:35 | disposition home or self-care (01) ==
LOC: ER 07:30 → ED HOLD 12:54 → EDBEDREQ 17:39 → ORTHO 4S 18:40
PROVIDERS: ADMIT Family Medicine; ATTEND Family Medicine
PROC: 0W9G3ZZ Drainage of Peritoneal Cavity, Percutaneous Approach (ICD-10-PCS; principal; 2023-08-20)
PROC: 0W9G3ZZ Drainage of Peritoneal Cavity, Percutaneous Approach (ICD-10-PCS; 2023-08-24)
DX: K74.60 Unspecified cirrhosis of liver (principal); K76.7 Hepatorenal syndrome; N17.9 Acute kidney failure, unspecified; R18.8 Other ascites; C18.9 Malignant neoplasm of colon, unspecified; C78.7 Secondary malignant neoplasm of liver and intrahepatic bile duct; D64.9 Anemia, unspecified; E87.5 Hyperkalemia; I10 Essential (primary) hypertension; G89.29 Other chronic pain; Z80.0 Family history of malignant neoplasm of digestive organs; Z80.3 Family history of malignant neoplasm of breast; Z82.49 Family history of ischemic heart disease and other diseases of the circulatory system; Z86.19 Personal history of other infectious and parasitic diseases; Z88.0 Allergy status to penicillin; Z90.49 Acquired absence of other specified parts of digestive tract; Z79.899 Other long term (current) drug therapy; Z92.21 Personal history of antineoplastic chemotherapy
CPT/HCPCS: 36415; 49083; 71045; 74176; 76942; 80048; 80053; 82948; 83735; 83880; 84100; 84132; 84484; 85025; 85027; 85610; 85730; 87040; 87081; 93005; 93306; 94640; 94760; 97116; 97161; 97530; 99285; G0378; J0360; J0696; J1170; J1644; J1815; J1940; J3490; J7030; P9047

== ENCOUNTER 2023-09-14 07:32 | Day surgery (SDC) | payer MEDICAID ==
[~2023-09-14] VITALS: Ht 162.6 cm; Wt 61.6 kg
[2023-09-14] VITALS (10 sets, daily range): BP systolic 164–191; BP diastolic 55–102; PULSE 65–74; RESP 16; TEMP 97.8; O2SAT 100
[~2023-09-14 07:32] MED LIST changes: -ATEN-27 PO; -CLON-568 PO; -CLON1TAB12 PO; +COR3.125T PO; -FENT1PAT8 TOP; -HYDR1LIQ5 PO; -POTA-206 PO; +RIFA550T PO; -SPIR50TA5 PO; -TRAM50TA2 PO
[2023-09-14] MEDS ORDERED: MORP15TA PO (07:56)
[2023-09-14] MEDS ORDERED: REGO40TA PO (07:56)
[2023-09-14] MEDS ORDERED: FURO20TA4 PO (07:58)
[2023-09-14] MEDS ORDERED: CARV3.123 PO (07:58)
[2023-09-14] MEDS: LIDOcaine 1% (10mg/ml) 2ml vial ONE (09:12)
[2023-09-14] MEDS: albumin 25% 100mL bottle x 1 IV PRN (09:14)
[2023-09-14] MEDS: ondansetron/PF 4mg/2ml inj IV ONE (09:42)
[2023-09-14] MEDS: morphine 4 MG/ML inj SYRINge IV ONE (09:42)
[2023-09-14] MEDS: morphine 2 MG/ML inj. syringe IV ONE (10:08)
== END 2023-09-14 10:50 | disposition home or self-care (01) ==
LOC: SSTAY O 07:32
PROVIDERS: ATTEND Radiology Diagnostic Radiology
DX: R18.8 Other ascites (principal); R14.0 Abdominal distension (gaseous); I50.9 Heart failure, unspecified; K74.60 Unspecified cirrhosis of liver; K21.9 Gastro-esophageal reflux disease without esophagitis; E88.09 Other disorders of plasma-protein metabolism, not elsewhere classified; Z85.038 Personal history of other malignant neoplasm of large intestine; Z98.890 Other specified postprocedural states; Z86.19 Personal history of other infectious and parasitic diseases; Z90.49 Acquired absence of other specified parts of digestive tract; Z88.0 Allergy status to penicillin; Z79.899 Other long term (current) drug therapy; Z80.3 Family history of malignant neoplasm of breast; Z80.0 Family history of malignant neoplasm of digestive organs; Z82.49 Family history of ischemic heart disease and other diseases of the circulatory system
CPT/HCPCS: 49083; C1729; J2270; J2405; J3490; P9047; A6258

== ENCOUNTER 2023-10-02 06:55 | Day surgery (SDC) | payer MEDICAID ==
[~2023-10-02] VITALS: Ht 162.6 cm; Wt 67.6 kg
[2023-10-02] VITALS (8 sets, daily range): BP systolic 164–174; BP diastolic 89–104; PULSE 56–72; RESP 15–20; TEMP 98; O2SAT 94–97
[~2023-10-02 06:55] MED LIST changes: +CARV3.123 PO; -CETI5TAB27 PO; -COR3.125T PO; -FURO-150 PO; +FURO20TA4 PO; +MORP15TA PO; -ONDA-104 PO; -OXYC15TA PO; -QUET25TA36 PO; -QUET50TA24 PO; +REGO40TA PO; -RIFA550T PO
[2023-10-02] MEDS ORDERED: OXYC15TA (07:21)
[2023-10-02] MEDS: albumin 25% 100mL bottle x 1 IV PRN (08:22)
== END 2023-10-02 11:15 | disposition home or self-care (01) ==
LOC: SSTAY O 06:55
PROVIDERS: ATTEND Radiology Diagnostic Radiology
DX: R18.8 Other ascites (principal); R14.0 Abdominal distension (gaseous); I11.0 Hypertensive heart disease with heart failure; I50.9 Heart failure, unspecified; K21.9 Gastro-esophageal reflux disease without esophagitis; Z85.038 Personal history of other malignant neoplasm of large intestine; Z79.891 Long term (current) use of opiate analgesic; Z79.899 Other long term (current) drug therapy; Z90.49 Acquired absence of other specified parts of digestive tract; Z88.0 Allergy status to penicillin
CPT/HCPCS: 49083; C1729; P9047; A6258